=== PATIENT | male | born 1945 | race Caucasian/White ===

== ENCOUNTER 2016-05-30 09:40 | Day surgery (SDC) | payer MEDICARE ==
[2016-05-29 09:10] VITALS: BMI 22.9
[~2016-05-30 09:40] MED LIST: LACTATED RINGERS 1,000 ML IV SCH
[2016-05-30 10:10] VITALS: TEMP 97
[2016-05-30] MEDS ORDERED: LIDOCAINE 1% INJ 10MG/ML (20 ML MDV) ONE (10:52)
[2016-05-30] MEDS ORDERED: PROPOFOL 10 MG/ML 20 ML VIAL IV ONE (10:52)
--- NOTE | 2016-05-30 11:13 | P.GSHP ---
History of Present Illness H&P Date: 05/30/16 Chief Complaint: Colon cancer This is a 71-year-old male who presents today for colonoscopy. Patient history of bowel obstruction related to colon cancer. He has a colostomy. Patient is undergoing colonoscopy to evaluate for colon cancer. He wished to have his colostomy reversed. Past Medical History Past Medical History: Atrial Fibrillation, Heart Failure, Musculoskeletal Disorder Additional Past Medical History / Comment(s): arthritis; History of Any Multi-Drug Resistant Organisms: None Reported Past Surgical History: Bowel Resection, Pacemaker Additional Past Surgical History / Comment(s): benign tumor from bowel; colostomy Past Anesthesia/Blood Transfusion Reactions: No Reported Reaction Type of Cardiac Device: Permanent Pacemaker Device Placement Date:: 2007 Past Psychological History: No Psychological Hx Reported Smoking Status: Current every day smoker Past Alcohol Use History: None Reported Past Drug Use History: None Reported - Past Family History Mother Family Medical History: Cancer Medications and Allergies Home Medications Medication Instructions Recorded Confirmed Type Hydrochlorothiazide [Hydrodiuril] 25 mg PO DAILY 03/08/14 05/29/16 History Lisinopril [Prinivil] 5 mg PO BID 03/08/14 05/29/16 History Digoxin [Lanoxin] 250 mcg PO DAILY 03/18/14 05/29/16 History Baclofen [Lioresal] 10 mg PO TID 05/29/16 05/29/16 History Morphine Sulfate [Morphine Sulfate 15 mg PO DAILY 05/29/16 05/29/16 History ER] oxyCODONE-APAP 10-325MG [Percocet 1 tab PO Q6HR PRN 05/29/16 05/29/16 History 10-325 mg] Allergies Allergy/AdvReac Type Severity Reaction Status Date / Time influenza virus vaccine, Allergy Unknown Verified 05/30/16 10:06 specific [Influenza Virus Vacc,Specific] Surgical - Exam Vital Signs Temp Pulse Resp BP Pulse Ox 97.0 F L 110 H 16 165/82 97 05/30/16 10:09 05/30/16 10:09 05/30/16 10:09 05/30/16 10:09 05/30/16 10:09 - General well developed, no distress - Eyes PERRL - ENT normal pinna - Neck no masses - Respiratory normal expansion - Cardiovascular Rhythm: regular - Abdomen Abdomen: soft, non tender Assessment and Plan Plan: History of colon cancer. We'll perform colonoscopy.
--- NOTE | 2016-05-30 11:46 | P.OP ---
Date of Procedure: 05/30/16 Preoperative Diagnosis: History of colon cancer Postoperative Diagnosis: Rectal polyp Transverse colon polyp Right colon polyp Procedure(s) Performed: Colonoscopy Anesthesia: MAC Surgeon: Marlon Cortez Pathology: other (Rectal polyp, transverse colon polyp, right colon polyp) Condition: stable Disposition: PACU Description of Procedure: Patient's placed on the endoscopy table in the lateral position. He received IV sedation. Digital rectal exam was performed which revealed no abnormalities. The flexible colonoscope was then placed the patient's anus and passed through the rectum. There was a pedunculated polyp seen this was snared. The scope was then withdrawn and then the scope was inserted colostomy. Scope was then advanced to the cecum. The ileocecal valve sutures. Cecum appeared normal. Scope summer back the right colon and there polyp seen this removed the forcep. Scope was then brought back the transverse colon and there was another polyp seen this is removed with snare. The remainder of the transverse colon descending colon appeared normal. Scope was withdrawn for patient.
[2016-05-30 11:56] VITALS: RESP 18
[2016-05-30 12:48] VITALS: BP 135/61; PULSE 91
== END 2016-05-30 13:27 | disposition home or self-care (01) ==
LOC: ORWHC2ENDO 09:40
PROVIDERS: ATTEND Surgery
DX: Z12.11 Encounter for screening for malignant neoplasm of colon (principal); D12.8 Benign neoplasm of rectum; D12.2 Benign neoplasm of ascending colon; D12.3 Benign neoplasm of transverse colon; Z85.038 Personal history of other malignant neoplasm of large intestine; Z93.3 Colostomy status; I50.9 Heart failure, unspecified; I48.91 Unspecified atrial fibrillation; Z79.899 Other long term (current) drug therapy; Z88.7 Allergy status to serum and vaccine; Z95.0 Presence of cardiac pacemaker
CPT/HCPCS: 44394; 45385; 88305; A5061; J2001; J2704; 99153

== ENCOUNTER 2016-06-28 07:40 | Inpatient (IN) | payer MEDICARE ==
[2016-06-13 15:14] VITALS: BMI 22.9
[~2016-06-28 07:40] MED LIST changes: +DEXAMETHASONE SOD PHOSPHATE 10 MG/ML 1 ML VIAL IV ONE; +HEPARIN SODIUM,PORCINE 5,000 UNIT/ML 1 ML VIAL SQ ONE; +HYDROmorphone 1 MG/ML 1 ML SYRINGE IVP PRN; +LACTATED RINGERS 1,000 ML IV ONE; -LACTATED RINGERS 1,000 ML IV SCH; +LIDOCAINE 1% 20 ML VIAL (10MG/ML) FOR IV START INTRADERMA PRN; +MIDAZOLAM 2 MG/2 ML VIAL IV PRN; +NA PHOS,M-B/NA PHOS,DI-BA 133 ML ENEMA RECTAL ONE; +ONDANSETRON 4 MG/2 ML VIAL IVP ONE; +SCOPOLAMINE 1.5MG/72HR PATCH TRANSDERM ONE; +ceFAZolin 2 GM in SODIUM CHLORIDE 0.9% 100 ML IVPB ONE; +metroNIDAZOLE-NS PMX 500 MG in SALINE 1 100ML.BAG IVPB ONE
--- NOTE | 2016-06-28 08:48 | P.GSHP ---
History of Present Illness H&P Date: 06/28/16 Chief Complaint: History of colon cancer This is a 71-year-old male who presents today for reversal of colostomy. Patient has history of colon cancer. At the time of his diagnosis is colon cancer was obstructing. He had a Buddy procedure done at that time. Patient refuses chemotherapy postoperatively. The patient is adamant about having his colostomy reversed. I've gone over the risks and benefits of procedure including inability to reverse the colostomy and issues with clonic anastomosis disruption. - Constitutional Constitutional: Reports as per HPI 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; colostomy,states "pacemaker disconnected but not take out" Past Anesthesia/Blood Transfusion Reactions: No Reported Reaction Type of Cardiac Device: Permanent Pacemaker Device Placement Date:: 2007 Past Psychological History: No Psychological Hx Reported Smoking Status: Current every day smoker Past Alcohol Use History: None Reported Additional Past Alcohol Use History / Comment(s): started smoking at approx 12< 1ppd Past Drug Use History: None Reported - Past Family History Mother Family Medical History: Cancer Father Additional Family Medical History / Comment(s): diverticulitis Medications and Allergies Home Medications Medication Instructions Recorded Confirmed Type Hydrochlorothiazide [Hydrodiuril] 25 mg PO DAILY 03/08/14 06/28/16 History Lisinopril [Prinivil] 5 mg PO BID 03/08/14 06/28/16 History Digoxin [Lanoxin] 250 mcg PO DAILY 03/18/14 06/28/16 History Baclofen [Lioresal] 10 mg PO HS 05/29/16 06/28/16 History Morphine Sulfate [Morphine Sulfate 15 mg PO HS 05/29/16 06/28/16 History ER] oxyCODONE-APAP 10-325MG [Percocet 1 tab PO Q6HR PRN 05/29/16 06/28/16 History 10-325 mg] Ibuprofen [Motrin] 600 mg PO Q8HR PRN 06/13/16 06/28/16 History Melatonin 10 mg PO HS PRN 06/13/16 06/28/16 History diphenhydrAMINE [Benadryl] 50 mg PO HS PRN 06/13/16 06/28/16 History Allergies Allergy/AdvReac Type Severity Reaction Status Date / Time No Known Allergies Allergy Verified 06/28/16 08:21 Surgical - Exam Vital Signs Temp Pulse Resp BP Pulse Ox 97.6 F 83 18 154/73 95 06/28/16 08:26 06/28/16 08:26 06/28/16 08:26 06/28/16 08:26 06/28/16 08:26 - General well developed, no distress - Eyes PERRL - ENT normal pinna - Neck no masses - Respiratory normal expansion - Cardiovascular Rhythm: regular - Abdomen Colostomy in the left lower quadrant Abdomen: soft, non tender Assessment and Plan Plan: History of colon cancer We will perform reversal of colostomy
[2016-06-28 09:31] LABS: Glucose,Whole Blood 112 mg/dL (75-99)
[2016-06-28] MEDS ORDERED: fentaNYL (PF) 50 MCG/ML 2 ML AMP ONE (09:35)
[2016-06-28] MEDS ORDERED: SUCCINYLCHOLINE CHLORIDE 100 MG/5 ML SYR IV ONE (09:35)
[2016-06-28] MEDS ORDERED: GLYCOPYRROLATE 0.2 MG/ML 2 ML VIAL ONE (09:35)
[2016-06-28] MEDS ORDERED: PROPOFOL 10 MG/ML 20 ML VIAL IV ONE (09:35)
[2016-06-28] MEDS ORDERED: NEOSTIGMINE 1 MG/ML 10 ML VIAL ONE (09:35)
[2016-06-28] MEDS ORDERED: ROCURONIUM BROMIDE 10 MG/ML 10 ML VIAL IV ONE (09:35)
[2016-06-28] MEDS ORDERED: HYDROmorphone (PF) 1 MG/ML ONE (09:35)
[2016-06-28] MEDS ORDERED: LIDOCAINE 1% INJ 10MG/ML (20 ML MDV) ONE (09:35)
[2016-06-28 09:43] LABS: Basophils # (A) 0.1 k/uL (0-0.2); Basophils % (A) 0 %; CH 33.5; Eosinophils # (A) 0.3 k/uL (0-0.7); Eosinophils % (A) 3 %; HCT 49.5 % (39.0-53.0); HDW 2.24; HGB 16.6 gm/dL (13.0-17.5); Luc # (Auto) 0.14; Luc % (Auto) 1; Lymphocytes # (A) 1.4 k/uL (1.0-4.8); Lymphocytes % (A) 13 %; MCH 33.2 pg (25.0-35.0); MCHC 33.6 g/dL (31.0-37.0); MCV 98.8 fL (80.0-100.0); Mean Platelet Volume 7.9; Monocytes # (A) 0.6 k/uL (0-1.0); Monocytes % (A) 5 %; Neutrophils # (A) 8.5 k/uL (1.3-7.7); Neutrophils % (A) 78 %; RBC 5.01 m/uL (4.30-5.90); RDW 13.4 % (11.5-15.5); WBC (Perox) 10.71
[2016-06-28 09:54] LABS: Anion Gap 14 mmol/L; Blood Urea Nitrogen 16 mg/dL (9-20); Calcium 9.5 mg/dL (8.4-10.2); Carbon Dioxide 21 mmol/L (22-30); Chloride 104 mmol/L (98-107); Glucose 100 mg/dL (74-99); Non-African American GFR(MDRD) >60 (>60 ml/min/1.73 sqM); Sodium 139 mmol/L (137-145)
[2016-06-28 09:58] LABS: Potassium 4.9 mmol/L (3.5-5.1)
[2016-06-28] MEDS ORDERED: ONDANSETRON 4 MG/2 ML VIAL IVP PRN ×2 (11:28→12:11)
[2016-06-28] MEDS ORDERED: BENZOCAINE/MENTHOL LOZENG 1 EACH LOZENGE MUCOUS MEM PRN (11:28)
--- NOTE | 2016-06-28 11:28 | P.OP ---
Date of Procedure: 06/28/16 Preoperative Diagnosis: History of colon cancer Postoperative Diagnosis: History of colon cancer Procedure(s) Performed: Reversal of colostomy Partial omentectomy Small bowel resection 2 Anesthesia: FERNANDA Surgeon: Marlon Cortez Estimated Blood Loss (ml): 40 Pathology: other (Omentectomy, small bowel resection 2, colostomy) Condition: stable Disposition: PACU Description of Procedure: The patient's placed the operative table in the supine position. He received general anesthesia. He was then placed in dorsal lithotomy position. His abdomen was prepped and draped usual sterile fashion. The patient had a colostomy in the left lower quadrant. The abdomen was entered through midline. There were some adhesions of omentum to the abdominal wall these were lysed with sharp dissection. A portion of the omentum was dissected using the Harmonic scissors and sent to pathology. The colostomy was visualized. At this point the colostomy was transected with the MARCIAL stapler at the fascial level. Following this the rectal stump was seen in the pelvis. There was a loop of small bowel which was adherent to the right pelvic wall. This was freed up with sharp dissection. There appeared to be an inflammatory mass between the 2 loops of bowel. At this point a limited small bowel resection. Was performed. The 2 loops were stuck together by this inflammatory mass. The bowel was transected proximally and distally on the proximal loop and then a osip-oz-groh functional end-to-end staple anastomosis created using MARCIAL and TA stapler. 3-0 GI silk was used for crotch stitch. And then the distal loop was then transected approximately distally with a GI stapler. And then the side-to- side staple anastomosis created using the MARCIAL and TA stapler. The mesentery of the bowel was divided using the LigaSure. The specimens of pathology. At this point the pursestring was placed the proximal colon. The pursestring was fired. The colon was then opened and the 25 mm dilator was placed into the colon. The anvil for the 25 mm EEA was then placed into the bowel and then these Purstring was secured. At this point the welder first class placed the EEA stapler patient's anus. The stapler is placed all the way to the distal staple line. The spike was then driven through the staple line and then the anvil was connected. The EEA stapler was then closed and fired. The stapler was withdrawn. A hydrocele was placed across the proximal colon and then the anastomosis was insufflated with air via a rigid sigmoidoscope. Her is no evidence of any extravasation. The air was insufflated to the point where the air escaped around the anus. At this point the sigmoid scope was withdrawn. The abdomen was irrigated. There is no bleeding seen. The fascia was closed with looped #1 PDS suture. The skin was closed oumou. The colostomy site was then excised using left cautery and sharp dissection. The fascial defect was then closed with 0 Ethibond suture. Skin was closed interrupted 3-0 Monocryl suture. Opteform dressing was applied. Patient sent to recovery in stable condition.
[2016-06-28] MEDS ORDERED: MIDAZOLAM 2 MG/2 ML VIAL IV ONE (11:50)
[2016-06-28] MEDS ORDERED: fentaNYL (PF) 50 MCG/ML 2 ML AMP IV ONE ×2 (11:50→12:15)
[2016-06-28] MEDS ORDERED: BUPIVACAINE (PF) 0.25% 30 ML VIAL EPIDURAL ONE ×2 (12:02→13:00)
[2016-06-28] MEDS ORDERED: diphenhydrAMINE 50 MG/ML 1 ML VIAL IVP PRN (12:11)
[2016-06-28] MEDS ORDERED: NALOXONE 0.4 MG/ML 1 ML VIAL IV PRN (12:11)
[2016-06-28] MEDS ORDERED: SODIUM CHLORIDE 0.9% 1,000 ML IV ONE ×2 (12:36)
[2016-06-28] MEDS: HYDROMORPHONE EPIDURAL PRN (13:22)
[2016-06-28] MEDS: SODIUM CHLORIDE 0.9% EPIDURAL PRN (13:22)
[2016-06-28] MEDS: BUPIVACAINE 0.5% EPIDURAL PRN (13:22)
[2016-06-28] MEDS: METOCLOPRAMIDE 5 MG/ML 2 ML VIAL IVP SCH ×3 (14:49→23:10)
[2016-06-28] MEDS: D5-0.45% NACL WITH KCL 20MEQ/L 1,000 ML IV SCH ×3 (15:44→23:10)
--- NOTE | 2016-06-28 15:50 | P.CONS ---
History of Present Illness - Reason for Consult Consult date: 06/28/16 Medical management Requesting physician: Marlon Cortez - Chief Complaint Status post colostomy reversal - History of Present Illness This is a 71-year-old male with a known history of colon cancer with previous bowel resection and colostomy placement. he had refused chemo and radiation treatment. He also has a history of proximal atrial fibrillation, COPD and he since hypertension. Patient is still a smoker. He is working on [email or web address] back he is down to 5-7 cigarettes a day. Patient underwent surgery for colostomy reversal today. Also during that surgery he had a partial omentectomy and small bowel resection for another mass that was found. Pathology report is pending. We were consulted for medical management. Patient is currently lying in bed. He is complaining of some abdominal pain. He denies any nausea or vomiting. Denies any chest pain or shortness of breath. He was having regular bowel movements and no difficulty with urinating prior to admission. Review of Systems Please refer to HPI otherwise unremarkable 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; colostomy,states "pacemaker disconnected but not take out" Past Anesthesia/Blood Transfusion Reactions: No Reported Reaction Type of Cardiac Device: Permanent Pacemaker Device Placement Date:: 2007 Past Psychological History: No Psychological Hx Reported Smoking Status: Current every day smoker Past Alcohol Use History: None Reported Additional Past Alcohol Use History / Comment(s): started smoking at approx 12< 1ppd Past Drug Use History: None Reported - Past Family History Mother Family Medical History: Cancer Father Additional Family Medical History / Comment(s): diverticulitis Medications and Allergies Home Medications Medication Instructions Recorded Confirmed Type Hydrochlorothiazide [Hydrodiuril] 25 mg PO DAILY 03/08/14 06/28/16 History Lisinopril [Prinivil] 5 mg PO BID 03/08/14 06/28/16 History Baclofen [Lioresal] 10 mg PO HS 05/29/16 06/28/16 History Morphine Sulfate [Morphine Sulfate 15 mg PO HS 05/29/16 06/28/16 History ER] oxyCODONE-APAP 10-325MG [Percocet 1 tab PO Q6HR PRN 05/29/16 06/28/16 History 10-325 mg] Ibuprofen [Motrin] 600 mg PO Q8HR PRN 06/13/16 06/28/16 History Melatonin 10 mg PO HS PRN 06/13/16 06/28/16 History diphenhydrAMINE [Benadryl] 50 mg PO HS PRN 06/13/16 06/28/16 History Digoxin 250 mcg PO DAILY 06/28/16 06/28/16 History Allergies Allergy/AdvReac Type Severity Reaction Status Date / Time No Known Allergies Allergy Verified 06/28/16 08:21 Physical Exam Vitals: Vital Signs Temp Pulse Resp BP Pulse Ox 06/28/16 15:33 97.6 F 76 16 117/70 100 06/28/16 14:20 108 H 18 157/82 93 L 06/28/16 13:48 97 18 137/68 92 L 06/28/16 13:32 76 18 142/71 92 L 06/28/16 13:18 91 18 142/67 92 L 06/28/16 13:03 83 20 147/70 92 L 06/28/16 12:48 109 H 20 147/79 93 L 06/28/16 12:33 106 H 22 138/77 93 L 06/28/16 12:18 88 22 149/76 98 06/28/16 12:03 93 22 152/72 98 06/28/16 11:48 98 20 158/80 98 06/28/16 11:33 97.7 F 93 20 132/57 98 06/28/16 08:26 97.6 F 83 18 154/73 95 Intake and Output 06/28/16 06/28/16 06/28/16 06:59 14:59 22:59 Intake Total 1611.3 Output Total 405 Balance 1206.3 Intake: IV 1611.3 Output: Urine 355 Estimated Blood Loss 50 Head normocephalic Neck supple Lungs coarse breath sounds that cleared with cough Heart regular rate and rhythm S1-S2, no rub or gallop Abdomen is soft tender incision site. Dressing clean dry and intact. Hypoactive bowel sounds. NG tube in place. Extremities no edema Neuro alert and orientated to 3 Results CBC & Chem 7: 06/28/16 09:20 06/28/16 09:20 Labs: Abnormal Lab Results - Last 24 Hours (Table) 06/28/16 06/28/16 06/28/16 Range/Units 09:15 09:20 09:20 WBC 11.0 H (3.8-10.6) k/uL Neutrophils # 8.5 H (1.3-7.7) k/uL Carbon Dioxide 21 L (22-30) mmol/L Glucose 100 H (74-99) mg/dL POC Glucose (mg/dL) 112 H (75-99) mg/dL Assessment and Plan Plan: 1. History of colon cancer with previous bowel resection and colostomy. Patient had refused chemo and radiation treatment. He is now status post colostomy reversal with partial omentectomy and small bowel resection for inflammatory mass noted by surgeon. Patient currently has epidural. Continue with pain control per surgical postop orders. 2. Leukocytosis: Repeat CBC in a.m. Continue to monitor. 3. Essential hypertension: Resume lisinopril and hydrochlorothiazide 4. Previous history of one episode of atrial fibrillation. Patient has never had anticoagulation. Continue with digoxin 5. Nicotine dependence: Discussed smoking cessation. Counseled patient for greater than 3 minutes. Start nicotine patch. 6. History of chronic back pain: takes morphine and Percocet at home. DVT prophylaxis subcu heparin Check CBC and CMP in a.m. We will continue to follow along with you. Thank you for this consultation. Time with Patient: Greater than 30 (Greater than 50% of the total time spent in counseling and coordination of care.I performed an examination of the patient and discussed their management with the physician Credit Collections Rep. I have reviewed the Physician Credit Collections Rep's notes and agree with the documented findings and plan of care)
[2016-06-28] MEDS: NICOTINE 7MG/24HR PATCH TRANSDERM SCH (16:22)
[2016-06-28] MEDS: HEPARIN SODIUM,PORCINE 5,000 UNIT/ML 1 ML VIAL SQ SCH ×2 (16:22→23:10)
[2016-06-28] MEDS: LISINOPRIL 5 MG TAB PO SCH (19:49)
[2016-06-29] MEDS: METOCLOPRAMIDE 5 MG/ML 2 ML VIAL IVP SCH ×3 (05:16→20:07)
[2016-06-29] MEDS: DIGOXIN 250 MCG TAB PO SCH (07:23)
[2016-06-29] MEDS: LISINOPRIL 5 MG TAB PO SCH (07:23)
[2016-06-29] MEDS: NICOTINE 7MG/24HR PATCH TRANSDERM SCH (07:23)
[2016-06-29] MEDS: HEPARIN SODIUM,PORCINE 5,000 UNIT/ML 1 ML VIAL SQ SCH ×3 (07:23→23:41)
[2016-06-29 07:53] LABS: Basophils # (A) 0.1 k/uL (0-0.2); Basophils % (A) 0 %; CH 32.9; CHCM 32.1; Eosinophils % (A) 0 %; HCT 47.6 % (39.0-53.0); HDW 2.19; HGB 15.7 gm/dL (13.0-17.5); Luc # (Auto) 0.16; Luc % (Auto) 1; Lymphocytes # (A) 0.8 k/uL (1.0-4.8); Lymphocytes % (A) 6 %; MCH 33.9 pg (25.0-35.0); MCHC 32.9 g/dL (31.0-37.0); MCV 102.9 fL (80.0-100.0); Macrocytosis Slight; Mean Platelet Volume 8.2; Monocytes # (A) 0.7 k/uL (0-1.0); Monocytes % (A) 5 %; Neutrophils # (A) 11.8 k/uL (1.3-7.7); Neutrophils % (A) 87 %; RBC 4.63 m/uL (4.30-5.90); RDW 13.3 % (11.5-15.5); WBC 13.5 k/uL (3.8-10.6); WBC (Perox) 13.64
[2016-06-29 08:12] LABS: ALT 18 U/L (21-72); AST 30 U/L (17-59); Alkaline Phosphatase 70 U/L (38-126); Anion Gap 10 mmol/L; Blood Urea Nitrogen 21 mg/dL (9-20); Calcium 8.4 mg/dL (8.4-10.2); Carbon Dioxide 21 mmol/L (22-30); Chloride 107 mmol/L (98-107); Glucose 102 mg/dL (74-99); Non-African American GFR(MDRD) >60 (>60 ml/min/1.73 sqM); Potassium 5.4 mmol/L (3.5-5.1); Sodium 138 mmol/L (137-145); Total Bilirubin 1.2 mg/dL (0.2-1.3); Total Protein 6.3 g/dL (6.3-8.2)
[2016-06-29] MEDS ORDERED: HYDROCHLOROTHIAZIDE 25 MG TAB PO SCH (09:00)
--- NOTE | 2016-06-29 09:50 | P.PN ---
Progress Note - Text 06/30 71-year-old male status post colostomy reversal with epidural solution running at 8 mL an hour. VAS of 2, no motor or sensory deficit, patient has complains of back pain and takes a fair amount of narcotics at home. Plan to continue epidural infusion.
[2016-06-29] MEDS ORDERED: IPRATROPIUM-ALBUTEROL 3 ML NEB INHALATION PRN (10:07)
[2016-06-29] MEDS: IPRATROPIUM-ALBUTEROL 3 ML NEB INHALATION SCH ×3 (12:39→21:00)
--- NOTE | 2016-06-29 12:49 | CDI ---
In responding to this query, please exercise your independent professional judgment. The [facility] Coding Staff and Clinical Documentation Specialists appreciate your assistance in clarifying documentation, maintaining compliance with coding guidelines, accurately documenting patients condition and capturing severity of illness. The fact that a question is asked does not imply that any particular answer is desired or expected. Communication forms are a method of clarifying documentation and are not made part of the Legal Health Record. Thank you in advance for your clarification. Last Revision, July 2015 Angel Luis Kaufman [address] [facility] [address] Documentation Clarification Form Date: 06/29/2016 12:07:00 PM From: Marcella Diana Admit Date: 06/28/2016 7:49:00 AM Patient Name: Kalyan Horn Visit Number: [id number] Discharge Date: Dr. Marlon Cortez Documentation in the Operative Report included Partial Omentectomy History/Risk factors: Colon cancer, Heart failure, Pre-Operative Diagnosis: Colon Cancer Postoperative Diagnosis: Same Clinical Indicators: The patient had a colostomy in the left lower quadrant. There were some adhesions of omentum of the abdominal wall these were lysed with sharp dissection. Treatment: Reversal of Colostomy, Partial Omentectomy, Small bowel resection x2 In order to capture the severity of condition, please further specify the following for the Partial Omentectomy: Anatomical site of the body system on which the procedure is performed Greater Omentum Lesser Omentum Other (please specify) Please document as an addendum to your operative report in order to capture severity of illness and risk of mortality. FYI: Press F11 to launch patient chart Place X here if this finding has no clinical significance, is not applicable or if you are not able to provide any additional documentation. HEMA
[2016-06-29 13:55] LABS: Glucose,Whole Blood 126 mg/dL (75-99)
[2016-06-29] MEDS ORDERED: METOPROLOL TARTRATE 25 MG TAB PO SCH ×2 (14:15→18:00)
[2016-06-29] MEDS: SODIUM CHLORIDE 0.9% EPIDURAL PRN (14:38)
[2016-06-29] MEDS: BUPIVACAINE 0.5% EPIDURAL PRN (14:38)
[2016-06-29] MEDS: HYDROMORPHONE EPIDURAL PRN (14:38)
--- NOTE | 2016-06-29 14:40 | P.PN ---
Subjective Principal diagnosis: Colon cancer Patient is a 71-year-old white male with history of obstructing colon cancer status post Buddy procedure refusing chemotherapy post procedure. Patient presented for elective colostomy reversal. Patient is evaluated from the surgical floor where he is postop day #1 for reversal of colostomy; partial omentectomy, and small bowel resection 2. Patient is sitting up in the chair. Patient complains of primarily lower back pain currently rated 8 out of 10. Patient reports productive cough. Denies nausea or vomiting. Denies flatus or bowel movement. T-max the last 24 hours 100.3. WBC 13.5. Potassium 5.4. Urine output adequate. Nasogastric tube to low intermittent suction for small bowel decompression. Objective - Vital Signs Vital signs: Vital Signs Temp 97.7 F 06/29/16 07:51 Pulse 79 06/29/16 07:51 Resp 17 06/29/16 07:51 BP 153/66 06/29/16 07:51 Pulse Ox 98 06/29/16 07:51 Intake & Output 06/28/16 06/29/16 06/29/16 18:59 06:59 18:59 Intake Total 1611.3 375 Output Total 405 300 Balance 1206.3 75 Weight 72.57 kg Intake: IV 1611.3 375 D5-0.45% NaCl with KCl 375 20Meq/l 1,000 ml @ 125 mls/hr IV .Q8H [facility] Rx#: [id number] Oral 0 Output: Urine 355 300 Estimated Blood Loss 50 Other: Voiding Method Indwelling Catheter Indwelling Catheter Indwelling Catheter - Exam GENERAL: Pt awake and alert, sitting up in a chair, appears in mild distress. ENT: Moist mucous membranes. LUNGS: Breath sounds diminished to auscultation bilaterally. Productive cough with yellow sputum. HEART: Heart S1, S2, no S3 or S4. Regular rate and rhythm. No murmurs, rubs or gallops. ABDOMEN: Soft, mild incisional tenderness, nondistended, hypoactive bowel sounds. No peritoneal signs. Abdominal dressing intact with old sanguinous drainage. NEUROLOGICAL: Pt oriented x 3. No focal deficits. PSYCH: Anxious. SKIN: Warm, diaphoretic. - Labs CBC & Chem 7: 06/29/16 07:10 06/29/16 07:10 Labs: Abnormal Lab Results - Last 24 Hours (Table) 06/29/16 06/29/16 06/29/16 Range/Units 07:10 07:10 13:50 WBC 13.5 H (3.8-10.6) k/uL MCV 102.9 H (80.0-100.0) fL Neutrophils # 11.8 H (1.3-7.7) k/uL Lymphocytes # 0.8 L (1.0-4.8) k/uL Potassium 5.4 H (3.5-5.1) mmol/L Carbon Dioxide 21 L (22-30) mmol/L BUN 21 H (9-20) mg/dL Glucose 102 H (74-99) mg/dL POC Glucose (mg/dL) 126 H (75-99) mg/dL ALT 18 L (21-72) U/L Assessment and Plan Plan: Impression: 1. History of colon cancer with Buddy procedure status post reversal of colostomy; partial omentectomy; and small bowel resection 2. 2. Chronic back pain. 3. Leukocytosis, suspect reactive and possible secondary to atelectasis. 4. Hyperkalemia. Potassium 5.4. Plan: 1. Keep patient nothing by mouth. Continue nasogastric tube to low intermittent suction for bowel decompression. Continue supportive treatment and pain management. Continue current medications. Remove potassium from IV fluids. Encouraged use of incentive spirometry. Increase activity. Inserted followed medical team. Repeat CBC and BMP in a.m. The above impression and plan have been discussed and directed by Dr. Cortez. Zechariah LOCK acting as scribe for Dr. Cortez.
--- NOTE | 2016-06-29 14:42 | P.PN ---
Subjective Patient is postop day #1 status post colostomy reversal, omentectomy, small bowel resection. Currently remains nothing by mouth with NG tube in place. Denies any bowel movement or passing gas. Patient did have a low-grade temp of 100.3. White count is 13.5. Patient also had some hyperkalemia with a potassium of 5.4. Potassium was removed from the IV fluids per surgery. Patient has epidural for pain control. Still complaining of some pain more in the back. Denies any chest pain, shortness of breath, any nausea. Patient has been up and ambulating in hallway Patient was reevaluated this afternoon with Dr. Pat. A team was called. Patient was diaphoretic with a heart rate in the 140s. EKG had shown sinus tachycardia with a heart rate of 118. Patient was started on metoprolol. Audiology was consulted. Patient was transferred to the sixth floor. Due to the temporal 100.3 and elevated white count of 13.5 and tachycardia. Check lactic acid level, blood culture, urine culture and chest x-ray. We'll start patient on Levaquin and Flagyl. Objective - Vital Signs Vital signs: Vital Signs Temp 97.7 F 06/29/16 07:51 Pulse 79 06/29/16 07:51 Resp 17 06/29/16 07:51 BP 153/66 06/29/16 07:51 Pulse Ox 98 06/29/16 07:51 Intake & Output 06/28/16 06/29/16 06/29/16 18:59 06:59 18:59 Intake Total 1611.3 375 Output Total 405 300 Balance 1206.3 75 Weight 72.57 kg Intake: IV 1611.3 375 D5-0.45% NaCl with KCl 375 20Meq/l 1,000 ml @ 125 mls/hr IV .Q8H [facility] Rx#: [id number] Oral 0 Output: Urine 355 300 Estimated Blood Loss 50 Other: Voiding Method Indwelling Catheter Indwelling Catheter Indwelling Catheter - Exam Head normocephalic Neck supple Lungs clear to auscultation bilaterally no wheezing or crackles Heart regular rate and rhythm S1-S2, no rub or gallop Abdomen is soft nontender nondistended with active bowel sounds. NG tube in place Extremities no edema Neuro alert and orientated to 3 - Labs CBC & Chem 7: 06/29/16 07:10 06/29/16 07:10 Labs: Abnormal Lab Results - Last 24 Hours (Table) 06/29/16 06/29/16 Range/Units 07:10 07:10 WBC 13.5 H (3.8-10.6) k/uL MCV 102.9 H (80.0-100.0) fL Neutrophils # 11.8 H (1.3-7.7) k/uL Lymphocytes # 0.8 L (1.0-4.8) k/uL Potassium 5.4 H (3.5-5.1) mmol/L Carbon Dioxide 21 L (22-30) mmol/L BUN 21 H (9-20) mg/dL Glucose 102 H (74-99) mg/dL ALT 18 L (21-72) U/L Assessment and Plan Plan: 1. History of colon cancer with previous bowel resection and colostomy. Patient had refused chemo and radiation treatment. He is now status post colostomy reversal with partial omentectomy and small bowel resection for inflammatory mass noted by surgeon. Patient currently has epidural. Continue with pain control per surgical postop orders. 2. Leukocytosis, low-grade temp of 100.3 and sinus tachycardia. Check lactic acid level, blood culture, urine culture and chest x-ray. Start patient empirically on Levaquin and Flagyl for possible infection 3. Essential hypertension: Norvasc 5 mg by mouth daily added since we are discontinuing the lisinopril and hydrochlorothiazide. 4. Previous history of one episode of atrial fibrillation. Patient has never had anticoagulation. Continue with digoxin 5. Nicotine dependence: Discussed smoking cessation. Counseled patient for greater than 3 minutes. Start nicotine patch. 6. History of chronic back pain: takes morphine and Percocet at home. 7. Hyperkalemia: Potassium 5.4. Potassium and IV fluids discontinued by surgical service. At this time we'll hold patient's lisinopril. Repeat potassium level at 6:00 p.m. 8. Acute kidney injury: We'll hold hydrochlorothiazide. Creatinine 1.06. BUN 21. Continue with IV fluid hydration. Repeat labs in a.m. 9. Sinus tachycardia with diaphoresis: heart rate up to 140. Patient required transfer to 6 floor. Consult cardiology. Patient will be started on metoprolol tartrate 25 mg daily. DVT prophylaxis subcu heparin
--- NOTE | 2016-06-29 15:09 | XR ---
EXAMINATION TYPE: XR chest 2V DATE OF EXAM: 06/29/2016 3:04 PM COMPARISON: NONE HISTORY: Fever and elevated white blood cell count status post surgery TECHNIQUE: Frontal and lateral views of the chest are obtained. FINDINGS: Patchy basilar density is present. Pneumoperitoneum thought likely to be postop. Patient i s rotated. NG tube is present within the stomach. Pacemaker shows leads in the right atrium and ventr icle, coronary sinus. No evident pneumothorax. Some prominence of interstitium, lung volumes are low. Heart size may be accentuated by rotation. IMPRESSION: Postoperative pneumoperitoneum. Probable basilar atelectasis, follow-up as indicated. Ex piratory rotated exam. There may be a component of volume overload, pulmonary venous hypertension and interstitial edema.
[2016-06-29] MEDS: DEXTROSE 5%-0.45% NACL 1,000 ML IV SCH ×2 (16:37→21:56)
[2016-06-29] MEDS: LEVOFLOXACIN 500MG-D5W PMX 500 MG in DEXTROSE/WATER 1 100ML.BAG IVPB SCH (18:11)
--- NOTE | 2016-06-29 18:11 | XR ---
EXAMINATION TYPE: XR chest 1V DATE OF EXAM: 06/29/2016 6:00 PM COMPARISON: 06/29/2016 HISTORY: Central line placement TECHNIQUE: Single frontal view of the chest is obtained. FINDINGS: Heart is enlarged. There is a nasogastric tube. There is a left axillary pacemaker with th e lead tips in the right ventricle. There is a left side central venous catheter that has its tip ext ending into the neck. There is no sign of pneumothorax. There is poor inspiration. There is interposi tion of the hepatic flexure of the colon noted. IMPRESSION: Mild pulmonary congestion. No pneumothorax. Left-sided central venous catheter appears m alpositioned and the tip is extending into the neck.
[2016-06-29 18:42] LABS: Amorphous Sediment,Urine Rare /hpf; Appearance,Urine Clear (Clear); Bilirubin,Urine Negative (Negative); Glucose,Urine (UA) Negative (Negative); Ketones,Urine Negative (Negative); Leukocyte Esterase,Urine Moderate (Negative); Mucus,Urine Rare /hpf; Nitrite,Urine Negative (Negative); PH, Urine 5.5 (5.0-8.0); Particle Count 2807; Protein,Urine 1+ (Negative); RBC,Urine 52 /hpf (0-5); Specific Gravity,Urine 1.019 (1.001-1.035); Squamous Epithelial Cell,Urine <1 /hpf (0-4); UA Billing (MACRO vs. MICRO) MICRO; Urobilinogen,Urine <2.0 mg/dL (<2.0); WBC,Urine 23 /hpf (0-5)
--- NOTE | 2016-06-29 18:42 | CONS ---
DATE OF CONSULTATION: This is a 71-year-old male who underwent reversal of colostomy with Buddy procedure today. Cardiology consultation was requested because of an episode of dyspnea and diaphoresis earlier while on the surgical floor. Patient has a known history of colon CA and underwent colostomy and in August. He has declined chemotherapy and radiation therapy. He underwent cardiac catheterization in 2006 and at that time there was no evidence of obstructive disease. Patient has a prior history of ICD but he declined generator change. He has a history of hypertension, and chronic tobacco use. He denies any change in his overall status. He denies any chest pain or palpitation. He denies PND, orthopnea, or significant peripheral edema. His coronary risk factors are remarkable for smoking, hyperlipidemia and hypertension. His left ventricular systolic function in the past has been stable. His medications at home included: 1. Lisinopril 5 mg twice a day. 2. Hydrochlorothiazide 0.25 mg daily. 3. Digoxin. REVIEW OF SYSTEMS: RESPIRATORY SYSTEM: Has dyspnea on exertion, history of chronic tobacco use. GI system: He has colon CA and has the colostomy. system: No dysuria or hematuria. Nervous system: No history of stroke or seizure. PHYSICAL EXAMINATION: He is a 71-year-old male, alert, in no apparent distress. Blood pressure 132/70 with a heart rate in the low 100s. Afebrile. HEENT: Normocephalic. Eyes: Sclerae anicteric. NECK: No bruit. LUNGS: With mild decreased in breath sounds. No wheezes. HEART: Regular rate rhythm. S1, S2, no S3, with a systolic murmur heard at the base. No diastolic murmur. No rub. With holosystolic murmur at the apex. ABDOMEN: Soft and nontender. Hypoactive bowel sounds. EXTREMITIES: No edema. EKG revealed a sinus mechanism with sinus tach, rate of 118 and left bundle branch block. His BUN and creatinine 21 and 1.06. Potassium 5.4. Lactic acid was 2.5. Hemoglobin of 15.7. IMPRESSION: 1. Status post reversal of colostomy. 2. Episode of diaphoresis and dyspnea, stabilizing at this time. 3. History of cardiomyopathy. 4. History of ICD with no generator change. Patient declined. 5. Mild coronary artery disease by cardiac catheterization in 2006. 6. Chronic tobacco use. 7. Nonischemic cardiomyopathy. 8. Hypertension. 9. Hyperlipidemia. RECOMMENDATIONS: From the cardiac standpoint, I will increase the dose of his beta estephania. Continue the rest of his medical regimen. We will repeat his echocardiogram. Depending on his progress, further recommendation will be made.
--- NOTE | 2016-06-29 18:56 | PCN ---
DATE OF PROCEDURE: TRIPLE LUMEN CATHETER PLACEMENT PROCEDURE: Triple-lumen catheter insertion. INDICATION FOR THE PROCEDURE: No IV access. Indication: Hemodynamic monitoring/Intravenous access. A time-out was completed verifying correct patient, procedure, site, positioning, and implant(s) or special equipment if applicable. The patient was placed in a dependent position appropriate for triple lumen catheter placement based on the vein to be cannulated. The patient's right shoulder was prepped and draped in sterile fashion. 1% Lidocaine was used to anesthetize the surrounding skin area. A triple lumen 9F Cordis catheter was introduced into the right subclavian vein using Seldinger technique. The catheter was threaded smoothly over the guide wire and appropriate blood return was obtained. Each lumen of the catheter was evacuated of air and flushed with sterile saline. The catheter was then sutured in place to the skin and a sterile dressing applied. Perfusion to the extremity distal to the point of catheter insertion was checked and found to be adequate. No bedside complications or bleeding. No pneumothorax.
[2016-06-29] MEDS: HYDROmorphone 1 MG/ML 1 ML SYRINGE IVP PRN ×2 (20:07→22:34)
[2016-06-29] MEDS: metroNIDAZOLE-NS PMX 500 MG in SALINE 1 100ML.BAG IVPB SCH (21:56)
[2016-06-29] MEDS: METOPROLOL TARTRATE 25 MG TAB PO SCH ×2 (21:59→22:06)
[2016-06-30] MEDS: metroNIDAZOLE-NS PMX 500 MG in SALINE 1 100ML.BAG IVPB SCH ×4 (00:31→23:34)
[2016-06-30] MEDS: HYDROmorphone 1 MG/ML 1 ML SYRINGE IVP PRN ×5 (01:01→23:34)
[2016-06-30] MEDS: METOCLOPRAMIDE 5 MG/ML 2 ML VIAL IVP SCH ×5 (01:01→23:34)
[2016-06-30] MEDS: DEXTROSE 5%-0.45% NACL 1,000 ML IV SCH ×4 (05:24→23:45)
[2016-06-30] MEDS: HEPARIN SODIUM,PORCINE 5,000 UNIT/ML 1 ML VIAL SQ SCH ×3 (07:47→23:35)
[2016-06-30] MEDS: amLODIPine 5 MG TAB PO SCH ×2 (07:53→07:56)
[2016-06-30] MEDS: DIGOXIN 250 MCG TAB PO SCH (07:53)
[2016-06-30] MEDS: METOPROLOL TARTRATE 25 MG TAB PO SCH ×3 (07:53→23:34)
[2016-06-30] MEDS: NICOTINE 7MG/24HR PATCH TRANSDERM SCH (07:53)
[2016-06-30 09:00] LABS: Basophils % (A) 0 %; CH 33.1; CHCM 33.3; Eosinophils # (A) 0.2 k/uL (0-0.7); Eosinophils % (A) 1 %; HCT 42.3 % (39.0-53.0); HDW 2.28; HGB 13.9 gm/dL (13.0-17.5); Luc # (Auto) 0.14; Luc % (Auto) 1; Lymphocytes # (A) 0.7 k/uL (1.0-4.8); Lymphocytes % (A) 5 %; MCH 32.8 pg (25.0-35.0); MCHC 32.8 g/dL (31.0-37.0); MCV 99.9 fL (80.0-100.0); Mean Platelet Volume 7.6; Monocytes # (A) 0.7 k/uL (0-1.0); Monocytes % (A) 5 %; Neutrophils # (A) 12.4 k/uL (1.3-7.7); Neutrophils % (A) 88 %; RBC 4.23 m/uL (4.30-5.90); RDW 13.4 % (11.5-15.5); WBC 14.1 k/uL (3.8-10.6); WBC (Perox) 13.73
--- NOTE | 2016-06-30 09:00 | P.PN ---
Subjective Principal diagnosis: colostomy reversal Patient doing well today. Denies abdominal pain. Complaining of mild back discomfort. No flatus or bowel movement thus far. He is afebrile. No labs this morning. Objective - Vital Signs Vital signs: Vital Signs Temp 97.6 F 06/30/16 07:50 Pulse 98 06/30/16 07:50 Resp 17 06/30/16 07:50 BP 115/75 06/30/16 07:50 Pulse Ox 95 06/30/16 07:50 Intake & Output 06/29/16 06/30/16 06/30/16 18:59 06:59 18:59 Intake Total 13.067 24.9 Output Total 1250 Balance 13.067 -1225.1 Weight 75.5 kg Intake: Intake, IV Titration 13.067 24.9 Amount Bupivacaine (Pf) 0.5% 31. 13.067 24.9 3 ml HYDROmorphone 7.5 mg In Sodium Chloride 0.9% 215 ml @ Per Protocol EPIDURAL .Q0M PRN Rx#: [id number] Output: Urine 1250 Uretheral (Pollack) 400 Other: Voiding Method Indwelling Catheter Indwelling Catheter - Exam Abdomen: Soft, nondistended, dressings intact, minimal tenderness - Labs CBC & Chem 7: 06/29/16 07:10 06/29/16 23:55 Labs: Abnormal Lab Results - Last 24 Hours (Table) 06/29/16 06/29/16 06/29/16 Range/Units 13:50 15:53 18:04 POC Glucose (mg/dL) 126 H (75-99) mg/dL Plasma Lactic Acid Sonu 2.5 H* (0.7-2.0) mmol/L Urine Protein 1+ H (Negative) Urine Blood Moderate H (Negative) Ur Leukocyte Esterase Moderate H (Negative) Urine RBC 52 H (0-5) /hpf Urine WBC 23 H (0-5) /hpf Amorphous Sediment Rare H (None) /hpf Hyaline Casts 15 H (0-2) /lpf Urine Mucus Rare H (None) /hpf Microbiology - Last 24 Hours (Table) 06/29/16 18:04 Urine Culture - Preliminary Urine,Catheterized Assessment and Plan (1) Colon cancer Narrative/Plan: Will begin a clear liquid diet. Check basic labs. Increase activity. Continue epidural for now. Status: Acute
[2016-06-30] MEDS: IPRATROPIUM-ALBUTEROL 3 ML NEB INHALATION SCH ×4 (09:21→20:40)
[2016-06-30 09:27] LABS: ALT 27 U/L (21-72); AST 45 U/L (17-59); Alkaline Phosphatase 63 U/L (38-126); Anion Gap 8 mmol/L; Blood Urea Nitrogen 23 mg/dL (9-20); Carbon Dioxide 24 mmol/L (22-30); Chloride 109 mmol/L (98-107); Glucose 123 mg/dL (74-99); Non-African American GFR(MDRD) >60 (>60 ml/min/1.73 sqM); Sodium 141 mmol/L (137-145); Total Bilirubin 1.4 mg/dL (0.2-1.3); Total Protein 6.4 g/dL (6.3-8.2)
[2016-06-30 09:32] LABS: Potassium 4.7 mmol/L (3.5-5.1)
--- NOTE | 2016-06-30 09:38 | P.PN ---
Subjective 71-year-old gentleman being seen on rounds morning currently sitting up in bed talkative appears in no acute distress. Patient is stating that the pain medication has been effective for pain control. Patient states he has not passed any gas. Has not belched. Currently chief complaint is lower back discomfort. Labs were reviewed. The lactic acid is down to 1.2. The white count 14.1 hemoglobin 13.9. Patient is postop 28 of June reversal of colostomy and partial omentectomy with small bowel resection 2 in a patient who has a history of colon cancer. Currently patient on a clear liquid diet which has just been initiated by surgical service. No reports the nausea vomit Bedside echocardiogram being taken Objective - Vital Signs Vital signs: Vital Signs Temp 97.6 F 06/30/16 07:50 Pulse 98 06/30/16 08:00 Resp 17 06/30/16 08:00 BP 115/75 06/30/16 07:50 Pulse Ox 95 06/30/16 07:50 Intake & Output 06/29/16 06/30/16 06/30/16 18:59 06:59 18:59 Intake Total 13.067 24.9 Output Total 1250 Balance 13.067 -1225.1 Weight 75.5 kg Intake: Intake, IV Titration 13.067 24.9 Amount Bupivacaine (Pf) 0.5% 31. 13.067 24.9 3 ml HYDROmorphone 7.5 mg In Sodium Chloride 0.9% 215 ml @ Per Protocol EPIDURAL .Q0M PRN Rx#: [id number] Output: Urine 1250 Uretheral (Pollack) 400 Other: Voiding Method Indwelling Catheter Indwelling Catheter Indwelling Catheter - Exam Physical exam 71-year-old male sitting up in bed appears in no acute distress. Patient states the bed is uncomfortable" Lungs diminished at the bases otherwise adequate air movement currently on room air sats are 95% no cough noted Heart S1-S2 audible and regular monitor the paced was sinus rhythm denying chest pain Abdomen surgical dressing site dry. A few hypoactive bowel tones not distended surgical tenderness indwelling Pollack catheter in place no reports of nausea vomiting Extremities Venodyne's on to the bilateral lower extremities no calf tenderness no edema - Labs CBC & Chem 7: 06/30/16 08:35 06/29/16 23:55 Labs: Abnormal Lab Results - Last 24 Hours (Table) 06/29/16 06/29/16 06/29/16 Range/Units 13:50 15:53 18:04 WBC (3.8-10.6) k/uL RBC (4.30-5.90) m/uL Neutrophils # (1.3-7.7) k/uL Lymphocytes # (1.0-4.8) k/uL POC Glucose (mg/dL) 126 H (75-99) mg/dL Plasma Lactic Acid Sonu 2.5 H* (0.7-2.0) mmol/L Urine Protein 1+ H (Negative) Urine Blood Moderate H (Negative) Ur Leukocyte Esterase Moderate H (Negative) Urine RBC 52 H (0-5) /hpf Urine WBC 23 H (0-5) /hpf Amorphous Sediment Rare H (None) /hpf Hyaline Casts 15 H (0-2) /lpf Urine Mucus Rare H (None) /hpf 06/30/16 Range/Units 08:35 WBC 14.1 H (3.8-10.6) k/uL RBC 4.23 L (4.30-5.90) m/uL Neutrophils # 12.4 H (1.3-7.7) k/uL Lymphocytes # 0.7 L (1.0-4.8) k/uL POC Glucose (mg/dL) (75-99) mg/dL Plasma Lactic Acid Sonu (0.7-2.0) mmol/L Urine Protein (Negative) Urine Blood (Negative) Ur Leukocyte Esterase (Negative) Urine RBC (0-5) /hpf Urine WBC (0-5) /hpf Amorphous Sediment (None) /hpf Hyaline Casts (0-2) /lpf Urine Mucus (None) /hpf Microbiology - Last 24 Hours (Table) 06/29/16 18:04 Urine Culture - Preliminary Urine,Catheterized Assessment and Plan Plan: Impression Postop June 28 Reversal of colostomy Partial omentectomy small bowel resection 2 for colon cancer Hypertension essential controlled Alone isolated episode of atrial fibrillation maintaining sinus Nicotine dependency chronic Chronic lower back pain on opiates at home Hyperkalemic improving potassium down to 4.7 Postop episode leukocytosis resolving Acute kidney injury improving creatinine down to 0.8 Sinus tachycardic symptomatic diaphoresis heart rate up to 140 postop necessitating transfer to a monitored bed on June 29 heart rate down to 90s Plan Continue postop surgical care per surgical service recommendations Increase activity Diet to be advanced by surgical service Pain control Follow-up on echocardiogram Respiratory treatments as ordered IV Levaquin and Flagyl as ordered Monitor blood pressure heart rate address as indicated DVT and GI prophylaxis Repeat labs in the morning Continue to reinforce smoking cessation information patient's been advised to quit smoking The above dictated assessment and findings were discussed with Dr. Bi Adler and the plan of care have been dictated as directed. Hannah Huddleston nurse practitioner acting as a scribe for dr gimenez
--- NOTE | 2016-06-30 09:50 | P.PN ---
Progress Note - Text Date: 06/30/2016 Time: The patient is status post, colostomy reversal, postoperative day number 2 The patient has no complaints of nausea vomiting or headache. The patient does not complain of any lower extremity numbness or weakness. The epidural is running at 10 mL per hour. The epidural will be maintained and adjusted as needed.
--- NOTE | 2016-06-30 10:09 | P.PN ---
Progress Note - Text Patient Seen and examined on 06/30/2016 Full note dictated by nurse practitioner Hannah Huddleston working with me today
--- NOTE | 2016-06-30 11:31 | P.CONS ---
History of Present Illness - Reason for Consult Consult date: 06/29/16 - Chief Complaint fever and abdominal pain - History of Present Illness 71-year-old male presents to hospital for reversal of his colostomy. This pleasant gentleman had a history of significant abdominal of that related to his colon cancer with obstruction which required a diverting colostomy. He has been doing well over time and desired to reversal. Preoperative endoscopy was performed with no evidence of any malignancy. The patient hasnow been taken to the operating room where he has had the reversal of his colostomy. He was doing well but is now had some mild leukocytosis as well as a fever and with that the infectious diseases consultation was requested. This very pleasant gentleman relates that he is feeling somewhat better today. NG tube is still in place. Looks forward to being able to eat in the next few days. He has a epidural in place and relates that he is not having excellent control of his pain. Anesthesiology has been requested for further evaluation. He also does not have current IV access and anesthesias also requested for IV access. Other than his pain he has no other acute complaints. He is passing no flatus at this point in time. NG is in place and he does not have nausea. Review of Systems HEENT:Denies headache or acute visual change. Denies sinus or mouth discomforts. Denies neck stiffness or pain. Denies significant oral cavity pain. Denies difficulty on swallowing. Lungs: Denies significant shortness of breath, cough, sputum production, or hemoptysis. Cardiovascular: Denies significant shortness of breath, chest pain, chest wall pain, orthopnea, dyspnea on exertion, syncope Gastrointestinal:recent surgery, see HPI, NG tube remains in place. Musculoskeletal: denies significant myalgias or arthralgias. No new joint swelling. Denies new back pain. Skin: Denies new rash or lesions. No new ulcers or wounds are related.. Neuro: Denies headache or visual change. Denies any new onset weakness or difficulty with ambulation. Denies falls or seizures. Psychiatric:Denies anxiety or depression. Endocrine: Denies significant fatigue, denies significant weight loss or weight gain. 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 Retired warehouse laborer. Remote history of tobacco use and alcohol use no recreational drug use. No experience. No international travel. No animal exposures Smoking Status: Current every day smoker Past Alcohol Use History: None Reported Additional Past Alcohol Use History / Comment(s): started smoking at approx 12< 1ppd Past Drug Use History: None Reported - Past Family History Mother Family Medical History: Cancer Father Additional Family Medical History / Comment(s): diverticulitis Medications and Allergies Home Medications and Allergies Comment(s): Current Medications Albuterol/Ipratropium (Duoneb 0.5 Mg-3 Mg/3 Ml Soln) 3 ml INHALATION RT-QID [facility] Last Admin: 06/30/16 09:21 Dose: Not Given Albuterol/Ipratropium (Duoneb 0.5 Mg-3 Mg/3 Ml Soln) 3 ml INHALATION RT-QID PRN PRN Reason: Shortness Of Breath Or Wheezing Amlodipine Besylate (Norvasc) 5 mg PO DAILY [facility] Last Admin: 06/30/16 07:56 Dose: Not Given Benzocaine/Menthol (Cepacol Lozenge) 1 each MUCOUS MEM Q1HR PRN PRN Reason: Sore Throat Digoxin (Lanoxin) 250 mcg PO DAILY [facility] Last Admin: 06/30/16 07:53 Dose: 250 mcg Diphenhydramine HCl (Benadryl) 25 mg IVP Q6HR PRN PRN Reason: Itching Heparin Sodium (Porcine) (Heparin) 5,000 unit SQ Q8HR [facility] Last Admin: 06/30/16 07:47 Dose: Not Given Hydromorphone HCl (Dilaudid) 0.5 mg IVP Q2HR PRN PRN Reason: Pain Last Admin: 06/30/16 01:01 Dose: 0.5 mg Bupivacaine HCl 31.3 ml/Hydromorphone HCl 7.5 mg/Sodium Chloride 250.05 mls @ 0 mls/hr EPIDURAL .Q0M PRN; Protocol; Per Protocol PRN Reason: Pain Control Last Infusion: 06/29/16 19:02 Dose: 10 mls/hr Dextrose/Sodium Chloride (Dextrose 5%-1/2ns Iv Soln) 1,000 mls @ 125 mls/hr IV .Q8H [facility] Last Admin: 06/30/16 07:59 Dose: 125 mls/hr Levofloxacin 500 mg/ IV (Solution) 100 mls @ 100 mls/hr IVPB Q24H [facility] Last Admin: 06/29/16 18:11 Dose: 100 mls/hr Metronidazole 500 mg/ IV (Solution) 100 mls @ 100 mls/hr IVPB Q8HR [facility] Last Admin: 06/30/16 07:59 Dose: 100 mls/hr Lidocaine HCl (.Xylocaine 1% Inj (10mg/Ml) For Iv Start) 0.1 ml INTRADERMA PER PROTOCOL PRN PRN Reason: IV Start Last Admin: 06/28/16 08:58 Dose: 0.1 ml Melatonin (Melatonin) 10 mg PO HS PRN PRN Reason: sleep Metoclopramide HCl (Reglan) 10 mg IVP Q6HR [facility] Last Admin: 06/30/16 05:24 Dose: 10 mg Metoprolol Tartrate (Lopressor) 25 mg PO BID [facility] Last Admin: 06/30/16 07:55 Dose: 25 mg Naloxone HCl (Narcan) 0.2 mg IV Q2M PRN PRN Reason: Opioid Reversal Nicotine (Habitrol 7mg/24hr Patch) 1 patch TRANSDERM DAILY [facility] Last Admin: 06/30/16 07:53 Dose: 1 patch Ondansetron HCl (Zofran) 4 mg IVP Q8HR PRN PRN Reason: Nausea And Vomiting Ondansetron HCl (Zofran) 4 mg IVP Q8HR PRN PRN Reason: Nausea And Vomiting Home Medications Medication Instructions Recorded Confirmed Type Hydrochlorothiazide [Hydrodiuril] 25 mg PO DAILY 03/08/14 06/28/16 History Lisinopril [Prinivil] 5 mg PO BID 03/08/14 06/28/16 History Baclofen [Lioresal] 10 mg PO HS 05/29/16 06/28/16 History Morphine Sulfate [Morphine Sulfate 15 mg PO HS 05/29/16 06/28/16 History ER] oxyCODONE-APAP 10-325MG [Percocet 1 tab PO Q6HR PRN 05/29/16 06/28/16 History 10-325 mg] Ibuprofen [Motrin] 600 mg PO Q8HR PRN 06/13/16 06/28/16 History Melatonin 10 mg PO HS PRN 06/13/16 06/28/16 History diphenhydrAMINE [Benadryl] 50 mg PO HS PRN 06/13/16 06/28/16 History Digoxin 250 mcg PO DAILY 06/28/16 06/28/16 History Allergies Allergy/AdvReac Type Severity Reaction Status Date / Time No Known Allergies Allergy Verified 06/28/16 08:21 Physical Exam Vitals: temperature 97 Blood pressure 153/70 Heart rate 92 Respiratory 20 Pulse ox 90% on room air T-max 100.3 HEENT: Anicteric conjunctiva are pink and moist nasal mucosa grossly intact without significant lesions, there is no thrush.NG tube in place Neck: The neck is supple without significant lymphadenopathy or thyromegaly. Lungs: there is symmetrical or energy. There are a few basilar crackles. No shawn bronchial sounds are heard Heart: Regular rate and rhythm with an audible S1-S2, no S3 no S4. There is no significant murmur click or rub, PMI was nondisplaced. Abdomen: lack of bowel sounds,abdomen is soft minimal tenderness in the recent surgery, without palpable masses or organomegaly. There was no guarding or rebound. Extremities: The upper extremities have excellent pulses they are symmetric, no significant petechiae or telangiectasia. No splinter hemorrhages were noted. The lower extremities are free from significant edema. The peripheral pulses were 2+ and symmetric. Neuro: Awake alert oriented to person place and time. There are no acute new gross focal sensory motor deficits. Results CBC & Chem 7: 06/30/16 08:35 06/30/16 08:35 Labs: Abnormal Lab Results - Last 24 Hours (Table) 06/29/16 06/29/16 06/29/16 Range/Units 13:50 15:53 18:04 WBC (3.8-10.6) k/uL RBC (4.30-5.90) m/uL Neutrophils # (1.3-7.7) k/uL Lymphocytes # (1.0-4.8) k/uL Chloride (98-107) mmol/L BUN (9-20) mg/dL Glucose (74-99) mg/dL POC Glucose (mg/dL) 126 H (75-99) mg/dL Plasma Lactic Acid Sonu 2.5 H* (0.7-2.0) mmol/L Total Bilirubin (0.2-1.3) mg/dL Urine Protein 1+ H (Negative) Urine Blood Moderate H (Negative) Ur Leukocyte Esterase Moderate H (Negative) Urine RBC 52 H (0-5) /hpf Urine WBC 23 H (0-5) /hpf Amorphous Sediment Rare H (None) /hpf Hyaline Casts 15 H (0-2) /lpf Urine Mucus Rare H (None) /hpf Microbiology - Last 24 Hours (Table) 06/29/16 18:04 Urine Culture - Preliminary Urine,Catheterized Chest x-ray: image reviewed (mild congestion no significant pneumonia) Assessment and Plan (1) Fever Narrative/Plan: Pleasant 71-year-old gentleman with a history of colon cancer significant obstructive disease process and underwent a Buddy procedure. There is no status post reversal colostomy. Preoperative endoscopic evaluations without evidence of malignancy. This pleasant gentleman is feeling relatively well today except complaining of significant amounts of pain. With this anesthesia requested to come and evaluate his epidural. Also for IV access since he is lost his current IV route. The patient was begun on levofloxacin and metronidazole postoperatively with his fever. This is reasonable although it is not appearing that he is any significant ALLERGIES. At this time is definitely having discomfort and will expect with anesthesia services will have major improvement of his pain in the near future. His albumin is adequate will need protein supplementation and multivitamin when he is improving. His lactic acid was elevated at the time of his transfer up to [facility] and his lactic acid improved to 1.2 with hydration. He has noted IV as required for further hydration at this time. He does not have evidence of significant pneumonia or urinary tract infection at this point in time the surgical site is without significant abnormality. No other source of sepsis is noted at this time. Status: Acute (2) Leukocytosis Status: Acute
[2016-06-30] MEDS ORDERED: HYDROmorphone 1 MG/ML 1 ML SYRINGE IVP STA (12:26)
[2016-06-30] MEDS: SODIUM CHLORIDE 0.9% EPIDURAL PRN (12:50)
[2016-06-30] MEDS: HYDROMORPHONE EPIDURAL PRN (12:50)
[2016-06-30] MEDS: BUPIVACAINE 0.5% EPIDURAL PRN (12:50)
--- NOTE | 2016-06-30 13:59 | P.PN ---
Subjective Principal diagnosis: Colon Cancer This is a 71-year-old male patient who underwent reversal of colostomy with Lutz procedure yesterday. We were consult said due to an episode of dyspnea and diaphoresis while on the surgical unit. Patient has a history of colon cancer and underwent colostomy in August at which time he declined chemotherapy or radiation. He's had a history of prior AICD placement but declines generator change. Also has a history of hypertension and chronic tobacco use. Upon examination, patient is resting comfortably in bed. He continues to have complaints of episodes of severe low back pain which is chronic. He denies complaints of chest pain, palpitations, shortness of breath, orthopnea, PND or edema. Objective - Vital Signs Vital signs: Vital Signs Temp 97.6 F 06/30/16 07:50 Pulse 95 06/30/16 11:49 Resp 17 06/30/16 11:49 BP 133/65 06/30/16 11:49 Pulse Ox 96 06/30/16 11:49 Intake & Output 06/29/16 06/30/16 06/30/16 18:59 06:59 18:59 Intake Total 13.067 24.9 278 Output Total 1250 Balance 13.067 -1225.1 278 Weight 75.5 kg Intake: Intake, IV Titration 13.067 24.9 278 Amount Bupivacaine (Pf) 0.5% 31. 13.067 24.9 178 3 ml HYDROmorphone 7.5 mg In Sodium Chloride 0.9% 215 ml @ Per Protocol EPIDURAL .Q0M PRN Rx#: [id number] metroNIDAZOLE-NS PMX 500 100 mg In Saline 1 100ml.bag @ 100 mls/hr IVPB Q8HR [facility] Rx#:[id number] Output: Urine 1250 Uretheral ([place]) 400 Other: Voiding Method Indwelling Catheter Indwelling Catheter Indwelling Catheter - Exam PHYSICAL EXAMINATION: HEENT: Head is atraumatic, normocephalic. Pupils equal, round. Neck is supple. There is no elevated jugular venous pressure. HEART EXAMINATION: Heart sounds regular, S1 and S2 with a systolic murmur. CHEST EXAMINATION: Lungs reveal diminished air entry bilaterally. No chest wall tenderness is noted on palpation or with deep breathing. ABDOMEN: Soft, nontender. Bowel sounds are hypoactive. No organomegaly noted. EXTREMITIES: 1+ peripheral pulses with no evidence of peripheral edema and no calf tenderness noted. NEUROLOGIC patient is awake, alert and oriented x3. . - Labs CBC & Chem 7: 06/30/16 08:35 06/30/16 08:35 Labs: Abnormal Lab Results - Last 24 Hours (Table) 06/29/16 06/29/16 06/29/16 Range/Units 13:50 15:53 18:04 WBC (3.8-10.6) k/uL RBC (4.30-5.90) m/uL Neutrophils # (1.3-7.7) k/uL Lymphocytes # (1.0-4.8) k/uL Chloride (98-107) mmol/L BUN (9-20) mg/dL Glucose (74-99) mg/dL POC Glucose (mg/dL) 126 H (75-99) mg/dL Plasma Lactic Acid Sonu 2.5 H* (0.7-2.0) mmol/L Total Bilirubin (0.2-1.3) mg/dL Urine Protein 1+ H (Negative) Urine Blood Moderate H (Negative) Ur Leukocyte Esterase Moderate H (Negative) Urine RBC 52 H (0-5) /hpf Urine WBC 23 H (0-5) /hpf Amorphous Sediment Rare H (None) /hpf Hyaline Casts 15 H (0-2) /lpf Urine Mucus Rare H (None) /hpf 06/30/16 06/30/16 Range/Units 08:35 08:35 WBC 14.1 H (3.8-10.6) k/uL RBC 4.23 L (4.30-5.90) m/uL Neutrophils # 12.4 H (1.3-7.7) k/uL Lymphocytes # 0.7 L (1.0-4.8) k/uL Chloride 109 H (98-107) mmol/L BUN 23 H (9-20) mg/dL Glucose 123 H (74-99) mg/dL POC Glucose (mg/dL) (75-99) mg/dL Plasma Lactic Acid Sonu (0.7-2.0) mmol/L Total Bilirubin 1.4 H (0.2-1.3) mg/dL Urine Protein (Negative) Urine Blood (Negative) Ur Leukocyte Esterase (Negative) Urine RBC (0-5) /hpf Urine WBC (0-5) /hpf Amorphous Sediment (None) /hpf Hyaline Casts (0-2) /lpf Urine Mucus (None) /hpf Microbiology - Last 24 Hours (Table) 06/29/16 18:04 Urine Culture - Preliminary Urine,Catheterized Assessment and Plan Plan: Assessment and plan #1 status post reversal of colostomy #2 episode of diaphoresis and dyspnea #3 chronic low back pain #4 history of nonischemic cardiomyopathy #5 history of AICD, declined generator change #6 chronic tobacco use #7 mild coronary artery disease by cardiac catheterization in 2006 #8 Colon Cancer #9 hypertension From cardiac standpoint, medications were reviewed and we will continue the same. Awaiting results of echocardiogram. Further recommendations to follow. LABELING SPECIALIST note has been reviewed, I agree with a documented findings and plan of care. Patient was seen and examined.
--- NOTE | 2016-06-30 14:46 | ECHOF ---
Referral Reason:cm MEASUREMENTS -------- HEIGHT: 177.8 cm WEIGHT: 75.3 kg BP: 115/75 RVIDd: 3.3 cm (< 3.3) IVSd: 1.5 cm (0.6 - 1.1) LVIDd: 5.2 cm (3.9 - 5.3) LVPWd: 1.5 cm (0.6 - 1.1) IVSs: 1.9 cm LVIDs: 4.5 cm LVPWs: 2.1 cm LA Diam: 4.1 cm (2.7 - 3.8) LAESV Index (A-L): 38.05 ml/m Ao Diam: 3.9 cm (2.0 - 3.7) AV Cusp: 2.5 cm (1.5 - 2.6) MV EXCURSION: 16.312 mm (> 18.000) MV EF SLOPE: 90 mm/s (70 - 150) EPSS: 2.1 cm MV E Logan: 0.92 m/s MV DecT: 133 ms MV A Logan: 1.22 m/s MV E/A Ratio: 0.75 AR PHT: 413 ms RAP: 5.00 mmHg RVSP: 42.06 mmHg FINDINGS -------- Sinus rhythm. Pacerwire seen in RV and RA. This was a technically good study. The left ventricular size is normal. There is moderate concentric left ventricular hypertrophy. There is severe global hypokinesis of LV . Overall left ventricular systolic function is severely impaired with, an EF between 20 - 25 %. Global hypokinesis The right ventricle is normal in size. LA is severely dilated >40 ml/m2 The right atrium is normal in size. Aortic valve is trileaflet and is mildly thickened. There is mild aortic regurgitation. The mitral valve leaflets are mildly thickened. Mild mitral annular calcification present. Moderate mitral regurgitation is present. [id number] tricuspid regurgitation present. There is mild pulmonary hypertension. The right ventricular systolic pressure, as measured by Doppler, is 42.06mmHg. The pulmonic valve was not well visualized. There is no pulmonic regurgitation present. The aortic root is dilated measuring 3.9cm. There is no pericardial effusion. CONCLUSIONS -------- 1. Sinus rhythm. 2. The right atrium is normal in size. 3. Aortic valve is trileaflet and is mildly thickened. 4. There is mild aortic regurgitation. 5. Mild mitral annular calcification present. 6. Moderate mitral regurgitation is present. 7. [id number] tricuspid regurgitation present. 8. There is mild pulmonary hypertension. 9. There is no pulmonic regurgitation present. 10. The aortic root is dilated measuring 3.9cm. 11. There is no pericardial effusion. 12. Pacerwire seen in RV and RA. 13. This was a technically good study. 14. There is moderate concentric left ventricular hypertrophy. 15. There is severe global hypokinesis of LV . 16. Overall left ventricular systolic function is severely impaired with, an EF between 20 - 25 %. 17. Global hypokinesis 18. The right ventricle is normal in size. 19. LA is severely dilated >40 ml/m2 TUNNEL MUCKER: Radha Kitchen RDCS
--- NOTE | 2016-06-30 15:16 | P.PN ---
Subjective Principal diagnosis: fever and abdominal pain 71-year-old male presents to hospital for reversal of his colostomy. This pleasant gentleman had a history of significant abdominal of that related to his colon cancer with obstruction which required a diverting colostomy. He has been doing well over time and desired to reversal. Preoperative endoscopy was performed with no evidence of any malignancy. The patient hasnow been taken to the operating room where he has had the reversal of his colostomy. He was doing well but is now had some mild leukocytosis as well as a fever and with that the infectious diseases consultation was requested. This very pleasant gentleman relates that he is feeling somewhat better today. NG tube is still in place. Looks forward to being able to eat in the next few days. He has a epidural in place and relates that he is not having excellent control of his pain. Anesthesiology has been requested for further evaluation. He also does not have current IV access and anesthesias also requested for IV access. Other than his pain he has no other acute complaints. He is passing no flatus at this point in time. Relates back pain is worse than Abdominal pain. Objective - Vital Signs Vital signs: Vital Signs Temp 97.6 F 06/30/16 07:50 Pulse 95 06/30/16 11:49 Resp 17 06/30/16 11:49 BP 133/65 06/30/16 11:49 Pulse Ox 96 06/30/16 11:49 Intake & Output 06/29/16 06/30/16 06/30/16 18:59 06:59 18:59 Intake Total 13.067 24.9 278 Output Total 1250 Balance 13.067 -1225.1 278 Weight 75.5 kg Intake: Intake, IV Titration 13.067 24.9 278 Amount Bupivacaine (Pf) 0.5% 31. 13.067 24.9 178 3 ml HYDROmorphone 7.5 mg In Sodium Chloride 0.9% 215 ml @ Per Protocol EPIDURAL .Q0M PRN Rx#: [id number] metroNIDAZOLE-NS PMX 500 100 mg In Saline 1 100ml.bag @ 100 mls/hr IVPB Q8HR [facility] Rx#:[id number] Output: Urine 1250 Uretheral ([place]) 400 Other: Voiding Method Indwelling Catheter Indwelling Catheter Indwelling Catheter - Exam HEENT: Anicteric conjunctiva are pink and moist nasal mucosa grossly intact without significant lesions, there is no thrush. NG removed Neck: The neck is supple without significant lymphadenopathy or thyromegaly. Lungs: there is symmetrical or energy. There are a few basilar crackles. No shawn bronchial sounds are heard Heart: Regular rate and rhythm with an audible S1-S2, no S3 no S4. There is no significant murmur click or rub, PMI was nondisplaced. Abdomen: lack of bowel sounds,abdomen is soft minimal tenderness in the recent surgery, without palpable masses or organomegaly. There was no guarding or rebound. Extremities: The upper extremities have excellent pulses they are symmetric, no significant petechiae or telangiectasia. No splinter hemorrhages were noted. The lower extremities are free from significant edema. The peripheral pulses were 2+ and symmetric. Neuro: Awake alert oriented to person place and time. There are no acute new gross focal sensory motor deficits. - Labs CBC & Chem 7: 06/30/16 08:35 06/30/16 08:35 Labs: Abnormal Lab Results - Last 24 Hours (Table) 06/29/16 06/29/16 06/30/16 Range/Units 15:53 18:04 08:35 WBC 14.1 H (3.8-10.6) k/uL RBC 4.23 L (4.30-5.90) m/uL Neutrophils # 12.4 H (1.3-7.7) k/uL Lymphocytes # 0.7 L (1.0-4.8) k/uL Chloride (98-107) mmol/L BUN (9-20) mg/dL Glucose (74-99) mg/dL Plasma Lactic Acid Sonu 2.5 H* (0.7-2.0) mmol/L Total Bilirubin (0.2-1.3) mg/dL Urine Protein 1+ H (Negative) Urine Blood Moderate H (Negative) Ur Leukocyte Esterase Moderate H (Negative) Urine RBC 52 H (0-5) /hpf Urine WBC 23 H (0-5) /hpf Amorphous Sediment Rare H (None) /hpf Hyaline Casts 15 H (0-2) /lpf Urine Mucus Rare H (None) /hpf 06/30/16 Range/Units 08:35 WBC (3.8-10.6) k/uL RBC (4.30-5.90) m/uL Neutrophils # (1.3-7.7) k/uL Lymphocytes # (1.0-4.8) k/uL Chloride 109 H (98-107) mmol/L BUN 23 H (9-20) mg/dL Glucose 123 H (74-99) mg/dL Plasma Lactic Acid Sonu (0.7-2.0) mmol/L Total Bilirubin 1.4 H (0.2-1.3) mg/dL Urine Protein (Negative) Urine Blood (Negative) Ur Leukocyte Esterase (Negative) Urine RBC (0-5) /hpf Urine WBC (0-5) /hpf Amorphous Sediment (None) /hpf Hyaline Casts (0-2) /lpf Urine Mucus (None) /hpf Microbiology - Last 24 Hours (Table) 06/29/16 18:04 Urine Culture - Preliminary Urine,Catheterized Laboratory Results WBC 14.1 k/uL (3.8-10.6) H 06/30/16 08:35 RBC 4.23 m/uL (4.30-5.90) L 06/30/16 08:35 Hgb 13.9 gm/dL (13.0-17.5) 06/30/16 08:35 Hct 42.3 % (39.0-53.0) 06/30/16 08:35 MCV 99.9 fL (80.0-100.0) 06/30/16 08:35 MCH 32.8 pg (25.0-35.0) 06/30/16 08:35 MCHC 32.8 g/dL (31.0-37.0) 06/30/16 08:35 RDW 13.4 % (11.5-15.5) 06/30/16 08:35 Plt Count 202 k/uL (150-450) 06/30/16 08:35 Neutrophils % 88 % 06/30/16 08:35 Lymphocytes % 5 % 06/30/16 08:35 Monocytes % 5 % 06/30/16 08:35 Eosinophils % 1 % 06/30/16 08:35 Basophils % 0 % 06/30/16 08:35 Neutrophils # 12.4 k/uL (1.3-7.7) H 06/30/16 08:35 Lymphocytes # 0.7 k/uL (1.0-4.8) L 06/30/16 08:35 Monocytes # 0.7 k/uL (0-1.0) 06/30/16 08:35 Eosinophils # 0.2 k/uL (0-0.7) 06/30/16 08:35 Basophils # 0.0 k/uL (0-0.2) 06/30/16 08:35 Macrocytosis Slight 06/29/16 07:10 Sodium 141 mmol/L (137-145) 06/30/16 08:35 Potassium 4.7 mmol/L (3.5-5.1) 06/30/16 08:35 Chloride 109 mmol/L (98-107) H 06/30/16 08:35 Carbon Dioxide 24 mmol/L (22-30) 06/30/16 08:35 Anion Gap 8 mmol/L 06/30/16 08:35 BUN 23 mg/dL (9-20) H 06/30/16 08:35 Creatinine 0.85 mg/dL (0.66-1.25) 06/30/16 08:35 Est GFR (MDRD) Af Amer >60 (>60 ml/min/1.73 sqM) 06/30/16 08:35 Est GFR (MDRD) Non-Af >60 (>60 ml/min/1.73 sqM) 06/30/16 08:35 Glucose 123 mg/dL (74-99) H 06/30/16 08:35 POC Glucose (mg/dL) 126 mg/dL (75-99) H 06/29/16 13:50 POC Glu [employer] ID Josefina Beaulieu 06/29/16 13:50 Plasma Lactic Acid Sonu 1.2 mmol/L (0.7-2.0) 06/29/16 23:55 Calcium 9.0 mg/dL (8.4-10.2) 06/30/16 08:35 Total Bilirubin 1.4 mg/dL (0.2-1.3) H 06/30/16 08:35 AST 45 U/L (17-59) 06/30/16 08:35 ALT 27 U/L (21-72) 06/30/16 08:35 Alkaline Phosphatase 63 U/L (38-126) 06/30/16 08:35 Total Protein 6.4 g/dL (6.3-8.2) 06/30/16 08:35 Albumin 3.5 g/dL (3.5-5.0) 06/30/16 08:35 Urine Color Yellow 06/29/16 18:04 Urine Appearance Clear (Clear) 06/29/16 18:04 Urine pH 5.5 (5.0-8.0) 06/29/16 18:04 Ur Specific [place] 1.019 (1.001-1.035) 06/29/16 18:04 Urine Protein 1+ (Negative) H 06/29/16 18:04 Urine Glucose (UA) Negative (Negative) 06/29/16 18:04 Urine Ketones Negative (Negative) 06/29/16 18:04 Urine Blood Moderate (Negative) H 06/29/16 18:04 Urine Nitrate Negative (Negative) 06/29/16 18:04 Urine Bilirubin Negative (Negative) 06/29/16 18:04 Urine Urobilinogen <2.0 mg/dL (<2.0) 06/29/16 18:04 Ur Leukocyte Esterase Moderate (Negative) H 06/29/16 18:04 Urine RBC 52 /hpf (0-5) H 06/29/16 18:04 Urine WBC 23 /hpf (0-5) H 06/29/16 18:04 Ur Squamous Epith Cells <1 /hpf (0-4) 06/29/16 18:04 Amorphous Sediment Rare /hpf (None) H 06/29/16 18:04 Hyaline Casts 15 /lpf (0-2) H 06/29/16 18:04 Urine Mucus Rare /hpf (None) H 06/29/16 18:04 Blood Type O Positive 06/28/16 09:20 Blood Type Recheck No 06/28/16 09:20 Antibody Screen NEGATIVE 06/28/16 09:20 Spec Expiration Date 07/01/2016231906/28/16 09:20 Microbiology 06/29/16 18:04 Urine,Catheterized Urine Culture - Preliminary Assessment and Plan (1) Fever Narrative/Plan: Pleasant 71-year-old gentleman with a history of colon cancer significant obstructive disease process and underwent a Buddy procedure. There is no status post reversal colostomy. Preoperative endoscopic evaluations without evidence of malignancy. This pleasant gentleman is feeling relatively well today except complaining of significant amounts of pain. This however mostly in his back. The patient was begun on levofloxacin and metronidazole postoperatively with his fever. This is reasonable although it is not appearing that he is any significant ALLERGIES. At this time is definitely having discomfort Toradol is allowed with a epidural and this is requested to hopefully help his severe back pain His albumin is adequate will need protein supplementation and multivitamin when he is improving. His lactic acid was elevated at the time of his transfer up to [facility] and his lactic acid improved to 1.2 with hydration. Doing well with IV hydration Status: Acute (2) Leukocytosis Status: Acute
[2016-06-30] MEDS: KETOROLAC 30 MG/ML 1 ML VIAL IVP PRN ×2 (16:09→22:14)
[2016-06-30] MEDS: LEVOFLOXACIN 500MG-D5W PMX 500 MG in DEXTROSE/WATER 1 100ML.BAG IVPB SCH (16:09)
[2016-07-01] MEDS: KETOROLAC 30 MG/ML 1 ML VIAL IVP PRN ×3 (04:08→15:52)
[2016-07-01] MEDS: HYDROmorphone 1 MG/ML 1 ML SYRINGE IVP PRN ×3 (06:07→20:33)
[2016-07-01] MEDS: METOCLOPRAMIDE 5 MG/ML 2 ML VIAL IVP SCH ×4 (06:07→22:47)
[2016-07-01 06:21] LABS: Basophils % (A) 0 %; CH 33.5; Eosinophils # (A) 0.3 k/uL (0-0.7); Eosinophils % (A) 3 %; HCT 38.7 % (39.0-53.0); HDW 2.35; Luc # (Auto) 0.13; Luc % (Auto) 1; Lymphocytes # (A) 0.7 k/uL (1.0-4.8); Lymphocytes % (A) 6 %; MCH 34.3 pg (25.0-35.0); MCHC 33.6 g/dL (31.0-37.0); MCV 101.9 fL (80.0-100.0); Macrocytosis Slight; Mean Platelet Volume 7.9; Monocytes # (A) 0.5 k/uL (0-1.0); Monocytes % (A) 4 %; Neutrophils # (A) 9.5 k/uL (1.3-7.7); Neutrophils % (A) 85 %; RDW 13.5 % (11.5-15.5); WBC 11.1 k/uL (3.8-10.6); WBC (Perox) 11.59
[2016-07-01 06:36] LABS: ALT 28 U/L (21-72); AST 41 U/L (17-59); Alkaline Phosphatase 67 U/L (38-126); Anion Gap 9 mmol/L; Blood Urea Nitrogen 21 mg/dL (9-20); Calcium 8.5 mg/dL (8.4-10.2); Carbon Dioxide 23 mmol/L (22-30); Chloride 107 mmol/L (98-107); Glucose 111 mg/dL (74-99); Non-African American GFR(MDRD) >60 (>60 ml/min/1.73 sqM); Potassium 4.1 mmol/L (3.5-5.1); Sodium 139 mmol/L (137-145); Total Bilirubin 1.4 mg/dL (0.2-1.3); Total Protein 5.9 g/dL (6.3-8.2)
[2016-07-01] MEDS: NICOTINE 7MG/24HR PATCH TRANSDERM SCH (08:06)
[2016-07-01] MEDS: HEPARIN SODIUM,PORCINE 5,000 UNIT/ML 1 ML VIAL SQ SCH ×3 (08:06→22:47)
[2016-07-01] MEDS: IPRATROPIUM-ALBUTEROL 3 ML NEB INHALATION SCH ×4 (08:16→20:32)
[2016-07-01] MEDS: DIGOXIN 250 MCG TAB PO SCH (08:30)
[2016-07-01] MEDS: metroNIDAZOLE-NS PMX 500 MG in SALINE 1 100ML.BAG IVPB SCH ×3 (08:30→22:48)
[2016-07-01] MEDS: amLODIPine 5 MG TAB PO SCH (08:30)
[2016-07-01] MEDS: METOPROLOL TARTRATE 25 MG TAB PO SCH ×2 (08:30→20:32)
--- NOTE | 2016-07-01 09:01 | P.PN ---
Progress Note - Text Date: 07/01/2016 Time: 07:17 The patient is status post, colostomy reversal, postoperative day number 3 The patient has no complaints of nausea vomiting or headache. The patient does not complain of any lower extremity numbness or weakness. The epidural is running at[10] mL per hour. The epidural will be discontinued this morning. Pain medicines will be provided to the patient by the service.
--- NOTE | 2016-07-01 10:16 | P.PN ---
Subjective Principal diagnosis: colostomy reversal Patient doing well today. Passing flatus. No pain. Asking for more to eat. White blood cell count 11.1. Objective - Vital Signs Vital signs: Vital Signs Temp 97.4 F L 07/01/16 08:00 Pulse 71 07/01/16 08:00 Resp 17 07/01/16 08:00 BP 138/70 07/01/16 08:00 Pulse Ox 95 07/01/16 08:00 Intake & Output 06/30/16 07/01/16 07/01/16 18:59 06:59 18:59 Intake Total 838 1470 Output Total 400 1200 Balance 438 270 Weight 74.1 kg Intake: IV 1350 Dextrose 5%-0.45% NaCl 1, 1250 000 ml @ 125 mls/hr IV . Q8H [facility] Rx#:[id number] metroNIDAZOLE-NS PMX 500 100 mg In Saline 1 100ml.bag @ 100 mls/hr IVPB Q8HR [facility] Rx#:[id number] Intake, IV Titration 278 Amount Bupivacaine (Pf) 0.5% 31. 178 3 ml HYDROmorphone 7.5 mg In Sodium Chloride 0.9% 215 ml @ Per Protocol EPIDURAL .Q0M PRN Rx#: [id number] metroNIDAZOLE-NS PMX 500 100 mg In Saline 1 100ml.bag @ 100 mls/hr IVPB Q8HR [facility] Rx#:[id number] Oral 560 120 Output: Urine 400 1200 Other: Voiding Method Indwelling Catheter Indwelling Catheter Indwelling Catheter - Exam Abdomen: Soft, nondistended, mild incisional tenderness, dressings intact - Labs CBC & Chem 7: 07/01/16 06:01 07/01/16 06:01 Labs: Abnormal Lab Results - Last 24 Hours (Table) 07/01/16 07/01/16 Range/Units 06:01 06:01 WBC 11.1 H (3.8-10.6) k/uL RBC 3.80 L (4.30-5.90) m/uL Hct 38.7 L (39.0-53.0) % MCV 101.9 H (80.0-100.0) fL Neutrophils # 9.5 H (1.3-7.7) k/uL Lymphocytes # 0.7 L (1.0-4.8) k/uL BUN 21 H (9-20) mg/dL Glucose 111 H (74-99) mg/dL Total Bilirubin 1.4 H (0.2-1.3) mg/dL Total Protein 5.9 L (6.3-8.2) g/dL Albumin 3.2 L (3.5-5.0) g/dL Microbiology - Last 24 Hours (Table) 06/29/16 18:04 Urine Culture - Final Urine,Catheterized 06/29/16 15:53 Blood Culture - Preliminary Blood No Growth after 24 hours 06/29/16 15:53 Blood Culture - Preliminary Blood No Growth after 24 hours Assessment and Plan (1) Colon cancer Narrative/Plan: Advance to full liquid diet. Ambulate. Status: Acute
--- NOTE | 2016-07-01 10:23 | P.PN ---
Subjective Principal diagnosis: Status post colostomy reversal, sepsis Patient is a 71-year-old male with known history of colon cancer and previous bowel resection and colostomy placement who was admitted to [facility] and underwent colostomy reversal post surgery patient had evidence of tachycardia and hypotension with evidence of sepsis. Since yesterday patient is doing better he is responding well to antibiotics his white blood count is down. Epidural has been removed patient was restarted on oral pain medications. Objective - Vital Signs Vital signs: Vital Signs Temp 97.4 F L 07/01/16 08:00 Pulse 71 07/01/16 08:00 Resp 17 07/01/16 08:00 BP 138/70 07/01/16 08:00 Pulse Ox 95 07/01/16 08:00 Intake & Output 06/30/16 07/01/16 07/01/16 18:59 06:59 18:59 Intake Total 838 1470 Output Total 400 1200 Balance 438 270 Weight 74.1 kg Intake: IV 1350 Dextrose 5%-0.45% NaCl 1, 1250 000 ml @ 125 mls/hr IV . Q8H [facility] Rx#:[id number] metroNIDAZOLE-NS PMX 500 100 mg In Saline 1 100ml.bag @ 100 mls/hr IVPB Q8HR [facility] Rx#:[id number] Intake, IV Titration 278 Amount Bupivacaine (Pf) 0.5% 31. 178 3 ml HYDROmorphone 7.5 mg In Sodium Chloride 0.9% 215 ml @ Per Protocol EPIDURAL .Q0M PRN Rx#: [id number] metroNIDAZOLE-NS PMX 500 100 mg In Saline 1 100ml.bag @ 100 mls/hr IVPB Q8HR [facility] Rx#:[id number] Oral 560 120 Output: Urine 400 1200 Other: Voiding Method Indwelling Catheter Indwelling Catheter Indwelling Catheter - Exam In general patient is alert and oriented 3 in no apparent distress HEENT head normocephalic and atraumatic Neck is supple no JVD no goiter no lymphadenopathy Chest exam reveals a few scattered crackles no wheezing Cardiac exam reveals regular heart sounds S1 and S2 no gallops no murmurs Abdomen is soft with mild diffuse tenderness no organomegaly Extremity exam reveals no edema no cyanosis or clubbing - Labs CBC & Chem 7: 07/01/16 06:01 07/01/16 06:01 Labs: Abnormal Lab Results - Last 24 Hours (Table) 07/01/16 07/01/16 Range/Units 06:01 06:01 WBC 11.1 H (3.8-10.6) k/uL RBC 3.80 L (4.30-5.90) m/uL Hct 38.7 L (39.0-53.0) % MCV 101.9 H (80.0-100.0) fL Neutrophils # 9.5 H (1.3-7.7) k/uL Lymphocytes # 0.7 L (1.0-4.8) k/uL BUN 21 H (9-20) mg/dL Glucose 111 H (74-99) mg/dL Total Bilirubin 1.4 H (0.2-1.3) mg/dL Total Protein 5.9 L (6.3-8.2) g/dL Albumin 3.2 L (3.5-5.0) g/dL Microbiology - Last 24 Hours (Table) 06/29/16 18:04 Urine Culture - Final Urine,Catheterized 06/29/16 15:53 Blood Culture - Preliminary Blood No Growth after 24 hours 06/29/16 15:53 Blood Culture - Preliminary Blood No Growth after 24 hours Assessment and Plan Plan: #1 status post colostomy reversal on admission #2 history of colon cancer was previous bowel resection and colostomy placement #3 sepsis with leukocytosis and elevated lactic acid improving continue was current IV antibiotic Dr. Vega following #4 history of chronic back pain epidural was removed today he will be restarted on Percocet and morphine #5 for DVT prophylaxis patient is on subcu heparin #6 previous history of 1 episode of atrial fibrillation patient has never been on anticoagulation he is maintained on digoxin will continue #7 tobacco abuse counseled regarding smoking cessation continue was nicotine patch
[2016-07-01] MEDS: oxyCODONE-APAP 10-325MG 1 EACH TAB PO PRN ×3 (11:37→23:27)
[2016-07-01] MEDS: DEXTROSE 5%-0.45% NACL 1,000 ML IV SCH ×2 (11:37→17:11)
--- NOTE | 2016-07-01 11:37 | PN ---
Mr. Horn is a 71-year-old male who presented to undergo reversal of his colostomy. He was transferred to the telemetry floor because of symptoms of tachypnea and tachycardia. He is feeling better today. His back pain is better. He started to have flatus. He is ambulating in the room. He denies any dizziness or palpitation. He denies any nausea. He continues to be on Lanoxin 0.25 mg daily, metoprolol tartrate 25 mg twice a day, amlodipine 5 mg daily. PHYSICAL EXAMINATION: Blood pressure 132/70 with a heart in the 70s. LUNGS: Clear. HEART: Regular rate and rhythm. S1, S2, no S3, with a systolic murmur. ABDOMEN: Soft, positive bowel sounds. EXTREMITIES: No edema. Dressing clean. Lab data revealed BUN and creatinine 21 and 0.9. Potassium 4.1. Hemoglobin of 13. He had an echocardiogram that showed a severely impaired left ventricular systolic function with moderate mitral regurgitation. IMPRESSION: 1. Status post reversal of colostomy. 2. History of known severe cardiomyopathy. 3. ICD generator not changed per patient's request. 4. History of hypertension. RECOMMENDATION: I will reinitiate treatment with YOUNG inhibitor, cut down the dose of ( ) stop calcium estephania because of his cardiomyopathy; follow his renal function, increase his level of activity and depending on his progress, further recommendation will be made.
--- NOTE | 2016-07-01 13:34 | P.PN ---
Subjective Principal diagnosis: fever and abdominal pain 71-year-old male presents to hospital for reversal of his colostomy. This pleasant gentleman had a history of significant abdominal of that related to his colon cancer with obstruction which required a diverting colostomy. He has been doing well over time and desired to reversal. Preoperative endoscopy was performed with no evidence of any malignancy. The patient hasnow been taken to the operating room where he has had the reversal of his colostomy. He was doing well but is now had some mild leukocytosis as well as a fever and with that the infectious diseases consultation was requested. This very pleasant gentleman relates that he is feeling somewhat better today. NG tube is still in place. Looks forward to being able to eat in the next few days. He has a epidural in place and relates that he is not having excellent control of his pain. Anesthesiology has been requested for further evaluation. He also does not have current IV access and anesthesias also requested for IV access. Other than his pain he has no other acute complaints. He is passing flatus at this point in time. Feeling considerably better today. The Toradol appears to have a loud significant relief of the severe back pain. Epidural was removed. He is eating a full liquid diet and tolerating it well. Objective - Vital Signs Vital signs: Vital Signs Temp 97.4 F L 07/01/16 08:00 Pulse 75 07/01/16 11:34 Resp 18 07/01/16 11:34 BP 143/65 07/01/16 11:34 Pulse Ox 95 07/01/16 11:34 Intake & Output 06/30/16 07/01/16 07/01/16 18:59 06:59 18:59 Intake Total 838 1470 Output Total 400 1200 Balance 438 270 Weight 74.1 kg Intake: IV 1350 Dextrose 5%-0.45% NaCl 1, 1250 000 ml @ 125 mls/hr IV . Q8H [facility] Rx#:[id number] metroNIDAZOLE-NS PMX 500 100 mg In Saline 1 100ml.bag @ 100 mls/hr IVPB Q8HR [facility] Rx#:[id number] Intake, IV Titration 278 Amount Bupivacaine (Pf) 0.5% 31. 178 3 ml HYDROmorphone 7.5 mg In Sodium Chloride 0.9% 215 ml @ Per Protocol EPIDURAL .Q0M PRN Rx#: [id number] metroNIDAZOLE-NS PMX 500 100 mg In Saline 1 100ml.bag @ 100 mls/hr IVPB Q8HR [facility] Rx#:[id number] Oral 560 120 Output: Urine 400 1200 Other: Voiding Method Indwelling Catheter Indwelling Catheter Indwelling Catheter - Exam HEENT: Anicteric conjunctiva are pink and moist nasal mucosa grossly intact without significant lesions, there is no thrush. NG removed Neck: The neck is supple without significant lymphadenopathy or thyromegaly. Lungs: there is symmetrical or energy. There are a few basilar crackles. No shawn bronchial sounds are heard Heart: Regular rate and rhythm with an audible S1-S2, no S3 no S4. There is no significant murmur click or rub, PMI was nondisplaced. Abdomen: Few bowel sounds are noted. Abdomen is minimally distended. Incision is well approximated without stiffing and drainage. Extremities: The upper extremities have excellent pulses they are symmetric, no significant petechiae or telangiectasia. No splinter hemorrhages were noted. The lower extremities are free from significant edema. The peripheral pulses were 2+ and symmetric. Neuro: Awake alert oriented to person place and time. There are no acute new gross focal sensory motor deficits. - Labs CBC & Chem 7: 07/01/16 06:01 07/01/16 06:01 Labs: Abnormal Lab Results - Last 24 Hours (Table) 07/01/16 07/01/16 Range/Units 06:01 06:01 WBC 11.1 H (3.8-10.6) k/uL RBC 3.80 L (4.30-5.90) m/uL Hct 38.7 L (39.0-53.0) % MCV 101.9 H (80.0-100.0) fL Neutrophils # 9.5 H (1.3-7.7) k/uL Lymphocytes # 0.7 L (1.0-4.8) k/uL BUN 21 H (9-20) mg/dL Glucose 111 H (74-99) mg/dL Total Bilirubin 1.4 H (0.2-1.3) mg/dL Total Protein 5.9 L (6.3-8.2) g/dL Albumin 3.2 L (3.5-5.0) g/dL Microbiology - Last 24 Hours (Table) 06/29/16 18:04 Urine Culture - Final Urine,Catheterized 06/29/16 15:53 Blood Culture - Preliminary Blood No Growth after 24 hours 06/29/16 15:53 Blood Culture - Preliminary Blood No Growth after 24 hours Laboratory Results WBC 11.1 k/uL (3.8-10.6) H 07/01/16 06:01 RBC 3.80 m/uL (4.30-5.90) L 07/01/16 06:01 Hgb 13.0 gm/dL (13.0-17.5) 07/01/16 06:01 Hct 38.7 % (39.0-53.0) L 07/01/16 06:01 MCV 101.9 fL (80.0-100.0) H 07/01/16 06:01 MCH 34.3 pg (25.0-35.0) 07/01/16 06:01 MCHC 33.6 g/dL (31.0-37.0) 07/01/16 06:01 RDW 13.5 % (11.5-15.5) 07/01/16 06:01 Plt Count 189 k/uL (150-450) 07/01/16 06:01 Neutrophils % 85 % 07/01/16 06:01 Lymphocytes % 6 % 07/01/16 06:01 Monocytes % 4 % 07/01/16 06:01 Eosinophils % 3 % 07/01/16 06:01 Basophils % 0 % 07/01/16 06:01 Neutrophils # 9.5 k/uL (1.3-7.7) H 07/01/16 06:01 Lymphocytes # 0.7 k/uL (1.0-4.8) L 07/01/16 06:01 Monocytes # 0.5 k/uL (0-1.0) 07/01/16 06:01 Eosinophils # 0.3 k/uL (0-0.7) 07/01/16 06:01 Basophils # 0.0 k/uL (0-0.2) 07/01/16 06:01 Macrocytosis Slight 07/01/16 06:01 Sodium 139 mmol/L (137-145) 07/01/16 06:01 Potassium 4.1 mmol/L (3.5-5.1) 07/01/16 06:01 Chloride 107 mmol/L (98-107) 07/01/16 06:01 Carbon Dioxide 23 mmol/L (22-30) 07/01/16 06:01 Anion Gap 9 mmol/L 07/01/16 06:01 BUN 21 mg/dL (9-20) H 07/01/16 06:01 Creatinine 0.91 mg/dL (0.66-1.25) 07/01/16 06:01 Est GFR (MDRD) Af Amer >60 (>60 ml/min/1.73 sqM) 07/01/16 06:01 Est GFR (MDRD) Non-Af >60 (>60 ml/min/1.73 sqM) 07/01/16 06:01 Glucose 111 mg/dL (74-99) H 07/01/16 06:01 POC Glucose (mg/dL) 126 mg/dL (75-99) H 06/29/16 13:50 POC Glu [employer] ID Josefina Beaulieu 06/29/16 13:50 Plasma Lactic Acid Sonu 1.2 mmol/L (0.7-2.0) 06/29/16 23:55 Calcium 8.5 mg/dL (8.4-10.2) 07/01/16 06:01 Total Bilirubin 1.4 mg/dL (0.2-1.3) H 07/01/16 06:01 AST 41 U/L (17-59) 07/01/16 06:01 ALT 28 U/L (21-72) 07/01/16 06:01 Alkaline Phosphatase 67 U/L (38-126) 07/01/16 06:01 Total Protein 5.9 g/dL (6.3-8.2) L 07/01/16 06:01 Albumin 3.2 g/dL (3.5-5.0) L 07/01/16 06:01 Urine Color Yellow 06/29/16 18:04 Urine Appearance Clear (Clear) 06/29/16 18:04 Urine pH 5.5 (5.0-8.0) 06/29/16 18:04 Ur Specific [place] 1.019 (1.001-1.035) 06/29/16 18:04 Urine Protein 1+ (Negative) H 06/29/16 18:04 Urine Glucose (UA) Negative (Negative) 06/29/16 18:04 Urine Ketones Negative (Negative) 06/29/16 18:04 Urine Blood Moderate (Negative) H 06/29/16 18:04 Urine Nitrate Negative (Negative) 06/29/16 18:04 Urine Bilirubin Negative (Negative) 06/29/16 18:04 Urine Urobilinogen <2.0 mg/dL (<2.0) 06/29/16 18:04 Ur Leukocyte Esterase Moderate (Negative) H 06/29/16 18:04 Urine RBC 52 /hpf (0-5) H 06/29/16 18:04 Urine WBC 23 /hpf (0-5) H 06/29/16 18:04 Ur Squamous Epith Cells <1 /hpf (0-4) 06/29/16 18:04 Amorphous Sediment Rare /hpf (None) H 06/29/16 18:04 Hyaline Casts 15 /lpf (0-2) H 06/29/16 18:04 Urine Mucus Rare /hpf (None) H 06/29/16 18:04 Blood Type O Positive 06/28/16 09:20 Blood Type Recheck No 06/28/16 09:20 Antibody Screen NEGATIVE 06/28/16 09:20 Spec Expiration Date 07/01/2016231906/28/16 09:20 Microbiology 06/29/16 18:04 Urine,Catheterized Urine Culture - Final 06/29/16 15:53 Blood Blood Culture - Preliminary No Growth after 24 hours 06/29/16 15:53 Blood Blood Culture - Preliminary No Growth after 24 hours Assessment and Plan (1) Fever Narrative/Plan: Pleasant 71-year-old gentleman with a history of colon cancer significant obstructive disease process and underwent a Buddy procedure. There is no status post reversal colostomy. Preoperative endoscopic evaluations without evidence of malignancy. This pleasant gentleman is feeling relatively well today except complaining of significant amounts of pain. This however mostly in his back. The patient was begun on levofloxacin and metronidazole postoperatively with his fever. This is reasonable although it is not appearing that he is any significant ALLERGIES. Yesterday his back pain was more significant than his abdominal pain. Toradol was started. He is now considering more comfortable. We'll continue Toradol for now. His albumin is adequate will need protein supplementation and multivitamin when he is improving. His lactic acid was elevated at the time of his transfer up to [facility] and his lactic acid improved to 1.2 with hydration. Doing well with IV hydration Leukocytosis continued to improve. We'll transition to oral Augmentin to finish a course of 7 days of therapy if he continues to improve in the next day. Status: Acute (2) Leukocytosis Status: Acute
[2016-07-01] MEDS: LEVOFLOXACIN 500MG-D5W PMX 500 MG in DEXTROSE/WATER 1 100ML.BAG IVPB SCH (15:57)
[2016-07-01] MEDS: LISINOPRIL 5 MG TAB PO SCH (20:33)
[2016-07-01] MEDS: MORPHINE SULFATE ER 15 MG TABLET PO SCH (22:46)
[2016-07-01] MEDS: MELATONIN 5 MG TABLET PO PRN (23:28)
[2016-07-02] MEDS: KETOROLAC 30 MG/ML 1 ML VIAL IVP PRN (02:22)
[2016-07-02] MEDS: HYDROmorphone 1 MG/ML 1 ML SYRINGE IVP PRN ×3 (02:23→18:12)
[2016-07-02] MEDS: DEXTROSE 5%-0.45% NACL 1,000 ML IV SCH ×2 (05:02→08:18)
[2016-07-02] MEDS: METOCLOPRAMIDE 5 MG/ML 2 ML VIAL IVP SCH ×4 (06:03→23:54)
[2016-07-02 06:49] LABS: Basophils # (A) 0.1 k/uL (0-0.2); Basophils % (A) 0 %; CH 33.5; CHCM 33.4; Eosinophils # (A) 0.6 k/uL (0-0.7); Eosinophils % (A) 5 %; HCT 41.3 % (39.0-53.0); HDW 2.36; HGB 13.7 gm/dL (13.0-17.5); Luc # (Auto) 0.16; Luc % (Auto) 1; Lymphocytes # (A) 0.8 k/uL (1.0-4.8); Lymphocytes % (A) 7 %; MCH 33.6 pg (25.0-35.0); MCHC 33.3 g/dL (31.0-37.0); Mean Platelet Volume 8.2; Monocytes # (A) 0.4 k/uL (0-1.0); Monocytes % (A) 4 %; Neutrophils # (A) 9.4 k/uL (1.3-7.7); Neutrophils % (A) 83 %; RBC 4.09 m/uL (4.30-5.90); RDW 13.2 % (11.5-15.5); WBC 11.4 k/uL (3.8-10.6); WBC (Perox) 11.68
[2016-07-02 07:00] LABS: ALT 29 U/L (21-72); AST 37 U/L (17-59); Alkaline Phosphatase 69 U/L (38-126); Anion Gap 7 mmol/L; Blood Urea Nitrogen 14 mg/dL (9-20); Calcium 8.8 mg/dL (8.4-10.2); Carbon Dioxide 24 mmol/L (22-30); Chloride 106 mmol/L (98-107); Glucose 129 mg/dL (74-99); Non-African American GFR(MDRD) >60 (>60 ml/min/1.73 sqM); Potassium 3.8 mmol/L (3.5-5.1); Sodium 137 mmol/L (137-145); Total Bilirubin 1.3 mg/dL (0.2-1.3); Total Protein 5.8 g/dL (6.3-8.2)
[2016-07-02] MEDS: metroNIDAZOLE-NS PMX 500 MG in SALINE 1 100ML.BAG IVPB SCH ×2 (08:10→16:35)
[2016-07-02] MEDS: HEPARIN SODIUM,PORCINE 5,000 UNIT/ML 1 ML VIAL SQ SCH ×3 (08:13→23:54)
[2016-07-02] MEDS: LISINOPRIL 5 MG TAB PO SCH ×2 (08:14→20:44)
[2016-07-02] MEDS: DIGOXIN 250 MCG TAB PO SCH (08:14)
[2016-07-02] MEDS: oxyCODONE-APAP 10-325MG 1 EACH TAB PO PRN ×3 (08:15→20:43)
[2016-07-02] MEDS: METOPROLOL TARTRATE 25 MG TAB PO SCH ×2 (08:15→20:44)
[2016-07-02] MEDS: NICOTINE 7MG/24HR PATCH TRANSDERM SCH (08:18)
[2016-07-02] MEDS: IPRATROPIUM-ALBUTEROL 3 ML NEB INHALATION SCH ×4 (09:03→18:39)
--- NOTE | 2016-07-02 12:22 | P.PN ---
Subjective Principal diagnosis: Status post colostomy reversal, sepsis Patient is a 71-year-old male with known history of colon cancer and previous bowel resection and colostomy placement who was admitted to [facility] and underwent colostomy reversal post surgery patient had evidence of tachycardia and hypotension with evidence of sepsis. Since yesterday patient is doing better he is responding well to antibiotics his white blood count is down. Epidural has been removed patient was restarted on oral pain medications. Objective - Vital Signs Vital signs: Vital Signs Temp 96.1 F L 07/02/16 08:00 Pulse 107 H 07/02/16 08:00 Resp 18 07/02/16 08:00 BP 113/74 07/02/16 08:00 Pulse Ox 95 07/02/16 09:04 Intake & Output 07/01/16 07/02/16 07/02/16 18:59 06:59 18:59 Intake Total 1400 725 150 Output Total 800 Balance 600 725 150 Weight 78.5 kg Intake: IV 100 725 100 Dextrose 5%-0.45% NaCl 1, 625 000 ml @ 125 mls/hr IV . Q8H ROSAS Rx#:[id number] metroNIDAZOLE-NS PMX 500 100 100 100 mg In Saline 1 100ml.bag @ 100 mls/hr IVPB Q8HR ROSAS Rx#:[id number] Intake, IV Titration 1000 Amount Dextrose 5%-0.45% NaCl 1, 1000 000 ml @ 125 mls/hr IV . Q8H ROSAS Rx#:[id number] Oral 300 50 Output: Urine 800 Uretheral ([place]) 650 Other: Voiding Method Indwelling Catheter Urinal # Voids 1 - Exam In general patient is alert and oriented 3 in no apparent distress HEENT head normocephalic and atraumatic Neck is supple no JVD no goiter no lymphadenopathy Chest exam reveals a few scattered crackles no wheezing Cardiac exam reveals regular heart sounds S1 and S2 no gallops no murmurs Abdomen is soft with mild diffuse tenderness no organomegaly Extremity exam reveals no edema no cyanosis or clubbing - Labs CBC & Chem 7: 07/02/16 06:28 07/02/16 06:28 Labs: Abnormal Lab Results - Last 24 Hours (Table) 07/02/16 07/02/16 Range/Units 06:28 06:28 WBC 11.4 H (3.8-10.6) k/uL RBC 4.09 L (4.30-5.90) m/uL MCV 101.0 H (80.0-100.0) fL Neutrophils # 9.4 H (1.3-7.7) k/uL Lymphocytes # 0.8 L (1.0-4.8) k/uL Glucose 129 H (74-99) mg/dL Total Protein 5.8 L (6.3-8.2) g/dL Albumin 3.3 L (3.5-5.0) g/dL Microbiology - Last 24 Hours (Table) 06/29/16 15:53 Blood Culture - Preliminary Blood No Growth after 48 hours 06/29/16 15:53 Blood Culture - Preliminary Blood No Growth after 48 hours Assessment and Plan Plan: #1 status post colostomy reversal on admission #2 history of colon cancer was previous bowel resection and colostomy placement #3 sepsis with leukocytosis and elevated lactic acid improving continue was current IV antibiotic Dr. Vega following, possible switch to oral antibiotics tomorrow, possible discharge to home tomorrow if stable. #4 history of chronic back pain epidural was removed today he will be restarted on Percocet and morphine #5 for DVT prophylaxis patient is on subcu heparin #6 previous history of 1 episode of atrial fibrillation patient has never been on anticoagulation he is maintained on digoxin will continue #7 tobacco abuse counseled regarding smoking cessation continue was nicotine patch Continue was current management possible switched to oral antibiotic and discharge to home tomorrow if stable
--- NOTE | 2016-07-02 12:32 | P.PN ---
Subjective Principal diagnosis: Reversal of colostomy. This is a 71-year-old gentleman who underwent reversal of colostomy with Lutz procedure. Cardiology consultation was initially requested because of symptoms of dyspnea. Patient does have history of AICD implant, has refused and changes in the past. Has history also of hypertension and chronic nicotine dependence. Patient was seen and examined this morning, denies any chest pain, breathing is stable. He is quite eager to be discharged home. Objective - Vital Signs Vital signs: Vital Signs Temp 96.1 F L 07/02/16 08:00 Pulse 107 H 07/02/16 08:00 Resp 18 07/02/16 08:00 BP 113/74 07/02/16 08:00 Pulse Ox 95 07/02/16 09:04 Intake & Output 07/01/16 07/02/16 07/02/16 18:59 06:59 18:59 Intake Total 1400 725 150 Output Total 800 Balance 600 725 150 Weight 78.5 kg Intake: IV 100 725 100 Dextrose 5%-0.45% NaCl 1, 625 000 ml @ 125 mls/hr IV . Q8H ROSAS Rx#:[id number] metroNIDAZOLE-NS PMX 500 100 100 100 mg In Saline 1 100ml.bag @ 100 mls/hr IVPB Q8HR ROSAS Rx#:[id number] Intake, IV Titration 1000 Amount Dextrose 5%-0.45% NaCl 1, 1000 000 ml @ 125 mls/hr IV . Q8H ROSAS Rx#:[id number] Oral 300 50 Output: Urine 800 Uretheral ([place]) 650 Other: Voiding Method Indwelling Catheter Urinal # Voids 1 - Exam PHYSICAL EXAMINATION: HEENT: Head is atraumatic, normocephalic. Pupils equal, round. Neck is supple. There is no elevated jugular venous pressure. HEART EXAMINATION: Heart S1, S2 normal. No murmur or gallop heard. CHEST EXAMINATION: Lungs are clear to auscultation and precussion. No chest wall tenderness is noted on palpation or with deep breathing. ABDOMEN: Soft, nontender. Bowel sounds are heard. No organomegaly noted. EXTREMITIES: 2+ peripheral pulses with no evidence of peripheral edema and no calf tenderness noted. NEUROLOGIC patient is awake, alert and oriented -3. . - Labs CBC & Chem 7: 07/02/16 06:28 07/02/16 06:28 Labs: Abnormal Lab Results - Last 24 Hours (Table) 07/02/16 07/02/16 Range/Units 06:28 06:28 WBC 11.4 H (3.8-10.6) k/uL RBC 4.09 L (4.30-5.90) m/uL MCV 101.0 H (80.0-100.0) fL Neutrophils # 9.4 H (1.3-7.7) k/uL Lymphocytes # 0.8 L (1.0-4.8) k/uL Glucose 129 H (74-99) mg/dL Total Protein 5.8 L (6.3-8.2) g/dL Albumin 3.3 L (3.5-5.0) g/dL Microbiology - Last 24 Hours (Table) 06/29/16 15:53 Blood Culture - Preliminary Blood No Growth after 48 hours 06/29/16 15:53 Blood Culture - Preliminary Blood No Growth after 48 hours Assessment and Plan (1) History of colostomy reversal Status: Acute (2) Chronic back pain Status: Acute (3) NICM (nonischemic cardiomyopathy) Status: Acute (4) AICD (automatic cardioverter/defibrillator) present Status: Acute (5) Nicotine dependence Status: Acute (6) HTN (hypertension) Status: Acute (7) Colon cancer Status: Acute Plan: Cardiology's perspective, we will recommend to continue the patient on his current medications. He may be able to be discharged home from our standpoint. A follow-up appointment will be made with Dr. Naranjo in the office post discharge. DNP note has been reviewed, I agree with a documented findings and plan of care. Patient was seen and examined.
[2016-07-02] MEDS: LEVOFLOXACIN 500MG-D5W PMX 500 MG in DEXTROSE/WATER 1 100ML.BAG IVPB SCH (14:48)
--- NOTE | 2016-07-02 17:24 | P.PN ---
Subjective Principal diagnosis: Colon cancer Patient is a 71-year-old white male with history of obstructing colon cancer status post Buddy procedure refusing chemotherapy post procedure. Patient presented for elective colostomy reversal. Patient is evaluated on selective care unit where he is postop day #4 for reversal of colostomy; partial greater omentectomy, and small bowel resection 2. Patient is doing better. Denies nausea or vomiting. Incisional pain controlled. Reports flatus with loose bowel movements. Tolerating full liquid diet. Patient has been up ambulating. Afebrile. WBC 11.4. Patient is urinating without difficulty. Objective - Vital Signs Vital signs: Vital Signs Temp 96.1 F L 07/02/16 12:00 Pulse 80 07/02/16 12:00 Resp 18 07/02/16 12:00 BP 146/67 07/02/16 12:00 Pulse Ox 93 L 07/02/16 12:00 Intake & Output 07/01/16 07/02/16 07/02/16 18:59 06:59 18:59 Intake Total 1400 725 715 Output Total 800 Balance 600 725 715 Weight 78.5 kg Intake: IV 100 725 435 Dextrose 5%-0.45% NaCl 1, 625 335 000 ml @ 125 mls/hr IV . Q8H ROSAS Rx#:[id number] metroNIDAZOLE-NS PMX 500 100 100 100 mg In Saline 1 100ml.bag @ 100 mls/hr IVPB Q8HR ROSAS Rx#:[id number] Intake, IV Titration 1000 Amount Dextrose 5%-0.45% NaCl 1, 1000 000 ml @ 125 mls/hr IV . Q8H ROSAS Rx#:[id number] Oral 300 280 Output: Urine 800 Uretheral ([place]) 650 Other: Voiding Method Indwelling Catheter Urinal # Voids 1 - Exam GENERAL: Pt awake and alert, lying in bed, appears in no apparent distress. ENT: Moist mucous membranes. LUNGS: Breath sounds diminished to auscultation bilaterally. HEART: Heart S1, S2, no S3 or S4. Regular rate and rhythm. No murmurs, rubs or gallops. ABDOMEN: Soft, mild incisional tenderness, nondistended, active bowel sounds. No peritoneal signs. Abdominal dressing intact with old sanguinous drainage. NEUROLOGICAL: Pt oriented x 3. No focal deficits. PSYCH: Calm. SKIN: Warm, dry. - Labs CBC & Chem 7: 07/02/16 06:28 07/02/16 06:28 Labs: Abnormal Lab Results - Last 24 Hours (Table) 07/02/16 07/02/16 Range/Units 06:28 06:28 WBC 11.4 H (3.8-10.6) k/uL RBC 4.09 L (4.30-5.90) m/uL MCV 101.0 H (80.0-100.0) fL Neutrophils # 9.4 H (1.3-7.7) k/uL Lymphocytes # 0.8 L (1.0-4.8) k/uL Glucose 129 H (74-99) mg/dL Total Protein 5.8 L (6.3-8.2) g/dL Albumin 3.3 L (3.5-5.0) g/dL Microbiology - Last 24 Hours (Table) 06/29/16 15:53 Blood Culture - Preliminary Blood No Growth after 48 hours 06/29/16 15:53 Blood Culture - Preliminary Blood No Growth after 48 hours Assessment and Plan Plan: Impression: 1. History of colon cancer with Buddy procedure status post reversal of colostomy; partial greater omentectomy; and small bowel resection 2 on 2016. 2. Leukocytosis. Plan: 1. Advance diet to soft. Decrease IV fluids to 50 mL an hour. Continue supportive treatment and pain management. Continue current medications. Encourage use of incentive spirometry. Continue to follow with medical team. Repeat CBC and BMP in a.m. The above impression and plan have been discussed and directed by Dr. Cortez. Zechariah LOCK acting as scribe for Dr. Cortez.
[2016-07-02] MEDS ORDERED: DEXTROSE 5%-0.45% NACL 1,000 ML IV SCH (17:30)
--- NOTE | 2016-07-02 18:13 | P.PN ---
Subjective Principal diagnosis: fever and abdominal pain 71-year-old male presents to hospital for reversal of his colostomy. This pleasant gentleman had a history of significant abdominal of that related to his colon cancer with obstruction which required a diverting colostomy. He has been doing well over time and desired to reversal. Preoperative endoscopy was performed with no evidence of any malignancy. The patient hasnow been taken to the operating room where he has had the reversal of his colostomy. He was doing well but is now had some mild leukocytosis as well as a fever and with that the infectious diseases consultation was requested. This very pleasant gentleman relates that he is feeling somewhat better today. NG tube is still in place. Looks forward to being able to eat in the next few days. He has a epidural in place and relates that he is not having excellent control of his pain. Anesthesiology has been requested for further evaluation. He also does not have current IV access and anesthesias also requested for IV access. Other than his pain he has no other acute complaints. He is passing flatus at this point in time. Patient relates his feeling poorly today. He's having significant GI upset. He believes the antibiotics are bothering his stomach. When discussing his current therapy relates that he is getting saline and it goes right to his stomach and sours it. Relates everything goes the stomach and bothers it. Objective - Vital Signs Vital signs: Vital Signs Temp 96.1 F L 07/02/16 12:00 Pulse 80 07/02/16 12:00 Resp 18 07/02/16 12:00 BP 146/67 07/02/16 12:00 Pulse Ox 93 L 07/02/16 12:00 Intake & Output 07/01/16 07/02/16 07/02/16 18:59 06:59 18:59 Intake Total 1400 725 715 Output Total 800 Balance 600 725 715 Weight 78.5 kg Intake: IV 100 725 435 Dextrose 5%-0.45% NaCl 1, 625 335 000 ml @ 125 mls/hr IV . Q8H ROSAS Rx#:[id number] metroNIDAZOLE-NS PMX 500 100 100 100 mg In Saline 1 100ml.bag @ 100 mls/hr IVPB Q8HR ROSAS Rx#:[id number] Intake, IV Titration 1000 Amount Dextrose 5%-0.45% NaCl 1, 1000 000 ml @ 125 mls/hr IV . Q8H ROSAS Rx#:[id number] Oral 300 280 Output: Urine 800 Uretheral ([place]) 650 Other: Voiding Method Indwelling Catheter Urinal # Voids 1 - Exam HEENT: Anicteric conjunctiva are pink and moist nasal mucosa grossly intact without significant lesions, there is no thrush. NG removed Neck: The neck is supple without significant lymphadenopathy or thyromegaly. Lungs: there is symmetrical or energy. There are a few basilar crackles. No shawn bronchial sounds are heard Heart: Regular rate and rhythm with an audible S1-S2, no S3 no S4. There is no significant murmur click or rub, PMI was nondisplaced. Abdomen: Few bowel sounds are noted. Abdomen is minimally distended. Incision is well approximated without stiffing and drainage. Extremities: The upper extremities have excellent pulses they are symmetric, no significant petechiae or telangiectasia. No splinter hemorrhages were noted. The lower extremities are free from significant edema. The peripheral pulses were 2+ and symmetric. Neuro: Awake alert oriented to person place and time. There are no acute new gross focal sensory motor deficits. - Labs CBC & Chem 7: 07/02/16 06:28 07/02/16 06:28 Labs: Abnormal Lab Results - Last 24 Hours (Table) 07/02/16 07/02/16 Range/Units 06:28 06:28 WBC 11.4 H (3.8-10.6) k/uL RBC 4.09 L (4.30-5.90) m/uL MCV 101.0 H (80.0-100.0) fL Neutrophils # 9.4 H (1.3-7.7) k/uL Lymphocytes # 0.8 L (1.0-4.8) k/uL Glucose 129 H (74-99) mg/dL Total Protein 5.8 L (6.3-8.2) g/dL Albumin 3.3 L (3.5-5.0) g/dL Microbiology - Last 24 Hours (Table) 06/29/16 15:53 Blood Culture - Preliminary Blood No Growth after 72 hours 06/29/16 15:53 Blood Culture - Preliminary Blood No Growth after 72 hours Laboratory Results WBC 11.4 k/uL (3.8-10.6) H 07/02/16 06:28 RBC 4.09 m/uL (4.30-5.90) L 07/02/16 06:28 Hgb 13.7 gm/dL (13.0-17.5) 07/02/16 06:28 Hct 41.3 % (39.0-53.0) 07/02/16 06:28 MCV 101.0 fL (80.0-100.0) H 07/02/16 06:28 MCH 33.6 pg (25.0-35.0) 07/02/16 06:28 MCHC 33.3 g/dL (31.0-37.0) 07/02/16 06:28 RDW 13.2 % (11.5-15.5) 07/02/16 06:28 Plt Count 213 k/uL (150-450) 07/02/16 06:28 Neutrophils % 83 % 07/02/16 06:28 Lymphocytes % 7 % 07/02/16 06:28 Monocytes % 4 % 07/02/16 06:28 Eosinophils % 5 % 07/02/16 06:28 Basophils % 0 % 07/02/16 06:28 Neutrophils # 9.4 k/uL (1.3-7.7) H 07/02/16 06:28 Lymphocytes # 0.8 k/uL (1.0-4.8) L 07/02/16 06:28 Monocytes # 0.4 k/uL (0-1.0) 07/02/16 06:28 Eosinophils # 0.6 k/uL (0-0.7) 07/02/16 06:28 Basophils # 0.1 k/uL (0-0.2) 07/02/16 06:28 Macrocytosis Slight 07/01/16 06:01 Sodium 137 mmol/L (137-145) 07/02/16 06:28 Potassium 3.8 mmol/L (3.5-5.1) 07/02/16 06:28 Chloride 106 mmol/L (98-107) 07/02/16 06:28 Carbon Dioxide 24 mmol/L (22-30) 07/02/16 06:28 Anion Gap 7 mmol/L 07/02/16 06:28 BUN 14 mg/dL (9-20) 07/02/16 06:28 Creatinine 0.93 mg/dL (0.66-1.25) 07/02/16 06:28 Est GFR (MDRD) Af Amer >60 (>60 ml/min/1.73 sqM) 07/02/16 06:28 Est GFR (MDRD) Non-Af >60 (>60 ml/min/1.73 sqM) 07/02/16 06:28 Glucose 129 mg/dL (74-99) H 07/02/16 06:28 POC Glucose (mg/dL) 126 mg/dL (75-99) H 06/29/16 13:50 POC Glu Bit Sharpener Operator ID Josefina Beaulieu 06/29/16 13:50 Plasma Lactic Acid Sonu 1.2 mmol/L (0.7-2.0) 06/29/16 23:55 Calcium 8.8 mg/dL (8.4-10.2) 07/02/16 06:28 Total Bilirubin 1.3 mg/dL (0.2-1.3) 07/02/16 06:28 AST 37 U/L (17-59) 07/02/16 06:28 ALT 29 U/L (21-72) 07/02/16 06:28 Alkaline Phosphatase 69 U/L (38-126) 07/02/16 06:28 Total Protein 5.8 g/dL (6.3-8.2) L 07/02/16 06:28 Albumin 3.3 g/dL (3.5-5.0) L 07/02/16 06:28 Urine Color Yellow 06/29/16 18:04 Urine Appearance Clear (Clear) 06/29/16 18:04 Urine pH 5.5 (5.0-8.0) 06/29/16 18:04 Ur Specific [place] 1.019 (1.001-1.035) 06/29/16 18:04 Urine Protein 1+ (Negative) H 06/29/16 18:04 Urine Glucose (UA) Negative (Negative) 06/29/16 18:04 Urine Ketones Negative (Negative) 06/29/16 18:04 Urine Blood Moderate (Negative) H 06/29/16 18:04 Urine Nitrate Negative (Negative) 06/29/16 18:04 Urine Bilirubin Negative (Negative) 06/29/16 18:04 Urine Urobilinogen <2.0 mg/dL (<2.0) 06/29/16 18:04 Ur Leukocyte Esterase Moderate (Negative) H 06/29/16 18:04 Urine RBC 52 /hpf (0-5) H 06/29/16 18:04 Urine WBC 23 /hpf (0-5) H 06/29/16 18:04 Ur Squamous Epith Cells <1 /hpf (0-4) 06/29/16 18:04 Amorphous Sediment Rare /hpf (None) H 06/29/16 18:04 Hyaline Casts 15 /lpf (0-2) H 06/29/16 18:04 Urine Mucus Rare /hpf (None) H 06/29/16 18:04 Blood Type O Positive 06/28/16 09:20 Blood Type Recheck No 06/28/16 09:20 Antibody Screen NEGATIVE 06/28/16 09:20 Spec Expiration Date 07/01/2016231906/28/16 09:20 Microbiology 06/29/16 15:53 Blood Blood Culture - Preliminary No Growth after 72 hours 06/29/16 15:53 Blood Blood Culture - Preliminary No Growth after 72 hours 06/29/16 18:04 Urine,Catheterized Urine Culture - Final Assessment and Plan (1) Fever Narrative/Plan: Pleasant 71-year-old gentleman with a history of colon cancer significant obstructive disease process and underwent a Buddy procedure. There is no status post reversal colostomy. Preoperative endoscopic evaluations without evidence of malignancy. This pleasant gentleman is feeling relatively well today except complaining of significant amounts of pain. This however mostly in his back. The patient was begun on levofloxacin and metronidazole postoperatively with his fever. This is reasonable although it is not appearing that he is any significant ALLERGIES. Yesterday his back pain was more significant than his abdominal pain. Toradol was started. He is now considering more comfortable. We'll continue Toradol for now. His albumin is adequate will need protein supplementation and multivitamin when he is improving. His lactic acid was elevated at the time of his transfer up to [facility] and his lactic acid improved to 1.2 with hydration. Doing well with IV hydration Patient is quite irritated today. He will examined buttocks are causing him to have significant GI upset. We discussed this also possibly the Toradol was causing some GI upset. His back pain is stabilized and improved. Thus would discontinue the Toradol. As far as antibiotic therapy the patient is now refusing further doses. He will be monitored closely off of antibiotic therapy. Status: Acute (2) Leukocytosis Status: Acute
[2016-07-02] MEDS: SUCRALFATE 1 GM TAB PO SCH ×2 (18:22→20:44)
[2016-07-02] MEDS: MORPHINE SULFATE ER 15 MG TABLET PO SCH (21:04)
[2016-07-02] MEDS: MELATONIN 5 MG TABLET PO PRN (21:31)
[2016-07-03 06:09] VITALS: RESP 18; TEMP 97.2
[2016-07-03] MEDS: oxyCODONE-APAP 10-325MG 1 EACH TAB PO PRN (06:37)
[2016-07-03] MEDS: METOCLOPRAMIDE 5 MG/ML 2 ML VIAL IVP SCH (06:37)
[2016-07-03] MEDS: SUCRALFATE 1 GM TAB PO SCH (06:38)
[2016-07-03 07:18] LABS: Basophils % (A) 0 %; CH 33.5; CHCM 33.4; Eosinophils # (A) 0.6 k/uL (0-0.7); Eosinophils % (A) 5 %; HCT 43.2 % (39.0-53.0); HDW 2.34; HGB 14.3 gm/dL (13.0-17.5); Luc # (Auto) 0.14; Luc % (Auto) 1; Lymphocytes # (A) 0.8 k/uL (1.0-4.8); Lymphocytes % (A) 7 %; MCH 33.3 pg (25.0-35.0); MCHC 33.1 g/dL (31.0-37.0); MCV 100.6 fL (80.0-100.0); Mean Platelet Volume 7.4; Monocytes # (A) 0.5 k/uL (0-1.0); Monocytes % (A) 4 %; Neutrophils # (A) 9.5 k/uL (1.3-7.7); Neutrophils % (A) 83 %; RBC 4.29 m/uL (4.30-5.90); RDW 13.2 % (11.5-15.5); WBC 11.5 k/uL (3.8-10.6); WBC (Perox) 11.66
[2016-07-03 07:39] LABS: ALT 30 U/L (21-72); AST 41 U/L (17-59); Alkaline Phosphatase 70 U/L (38-126); Anion Gap 12 mmol/L; Blood Urea Nitrogen 12 mg/dL (9-20); Calcium 8.9 mg/dL (8.4-10.2); Carbon Dioxide 21 mmol/L (22-30); Chloride 107 mmol/L (98-107); Glucose 98 mg/dL (74-99); Non-African American GFR(MDRD) >60 (>60 ml/min/1.73 sqM); Potassium 3.8 mmol/L (3.5-5.1); Sodium 140 mmol/L (137-145); Total Bilirubin 1.3 mg/dL (0.2-1.3)
[2016-07-03] MEDS: METOPROLOL TARTRATE 25 MG TAB PO SCH (08:46)
[2016-07-03] MEDS: LISINOPRIL 5 MG TAB PO SCH (08:46)
[2016-07-03] MEDS: HEPARIN SODIUM,PORCINE 5,000 UNIT/ML 1 ML VIAL SQ SCH (08:46)
[2016-07-03] MEDS: NICOTINE 7MG/24HR PATCH TRANSDERM SCH (08:46)
[2016-07-03] MEDS: DIGOXIN 250 MCG TAB PO SCH (08:46)
--- NOTE | 2016-07-03 09:34 | P.DS ---
Providers Date of admission: 06/28/16 07:49 Expected date of discharge: 07/03/16 Attending physician: Marlon Cortez Consults: 06/28/16 11:30 Consult Physician Routine Consulting Provider: Koko Pat Consult Reason/Comments: Medical management Do you want consulting provider notified?: Yes 06/29/16 13:56 Consult Physician Urgent Consulting Provider: Ezra Naranjo Consult Reason/Comments: elevated heart rate Do you want consulting provider notified?: Yes 06/29/16 14:04 Consult Physician Urgent Consulting Provider: Ezra Naranjo Consult Reason/Comments: sinus tach/diaphoretic Do you want consulting provider notified?: Yes 06/29/16 15:04 Consult Physician Routine Consulting Provider: Pacheco Vega Consult Reason/Comments: elevated WBC, low grade temp Do you want consulting provider notified?: Yes Primary care physician: Koko Camilojar [facility] Course: Diagnosis on discharge: #1 history of colon cancer was previous bowel resection and colostomy placement , patient underwent colostomy reversal during this admission #2 postoperative sepsis with leukocytosis and elevated lactic acid, treated with IV fluid IV antibiotic improved #3 essential hypertension #4 previous history of 1 episode of atrial fibrillation maintained on digoxin patient has never been on Coumadin before #5 nicotine dependence counseled regarding smoking cessation during this admission more than 15 minutes patient was given nicotine patch #6 history of chronic back pain maintained on morphine and Percocet at home Hospital course patient is a 71-year-old male who was admitted to [facility] by and underwent colostomy reversal with partial omentectomy, post surgery patient had an episode of hypotension leukocytosis and the elevated lactic acid all suggestive of sepsis he was transferred to telemetry floor he was treated with IV antibiotic and IV fluid he improved he was seen by Dr. Vega in infectious disease consultation he was switched to oral antibiotic and was discharged home on 07/03/2016 Patient has a known history of chronic back pain he was maintained on morphine and Percocet at home during this admission initially patient was on IV pain medication subsequently he was switched to his home doses of morphine and Percocet. Patient has a known history of smoking he was counseled regarding smoking cessation he was given a prescription for nicotine patch During this admission blood pressure medication were adjusted diuretic was discontinued he was continued on lisinopril and was continued on metoprolol He will be followed in our office within one week for further evaluation and treatment Also follow-up with Dr. Cortez for surgical follow-up within 1 week Plan - Discharge Summary New Discharge Prescriptions: Amoxic-Pot Clav 500-125 mg [Augmentin 500-125 mg] 1 tab PO Q12HR #14 tab Discharge Medication List Lisinopril [Prinivil] 5 mg PO BID 03/08/14 [History] Baclofen [Lioresal] 10 mg PO HS 05/29/16 [History] Morphine Sulfate [Morphine Sulfate ER] 15 mg PO HS 05/29/16 [History] oxyCODONE-APAP 10-325MG [Percocet 10-325 mg] 1 tab PO Q6HR PRN 05/29/16 [History ] Melatonin 10 mg PO HS PRN 06/13/16 [History] diphenhydrAMINE [Benadryl] 50 mg PO HS PRN 06/13/16 [History] Digoxin 250 mcg PO DAILY 06/28/16 [History] Amoxic-Pot Clav 500-125 mg [Augmentin 500-125 mg] 1 tab PO Q12HR #14 tab [Rx] Metoprolol Tartrate [Lopressor] 25 mg PO BID tab 07/03/16 [Rx] Nicotine 7Mg/24Hr Patch [Habitrol] 1 patch TRANSDERM DAILY patch 07/03/16 [Rx] Follow up Appointment(s)/Referral(s): Ezra Naranjo MD [STAFF PHYSICIAN] - 2 Weeks Koko Pat MD [Primary Care Provider] - 1 Week Marlon Cortez MD [STAFF PHYSICIAN] - 1 Week Patient Instructions/Handouts: Colectomy (DC) Activity/Diet/Wound Care/Special Instructions: No heavy lifting, pushing, or pulling items greater than 10 pounds. Soft diet Shower daily, no soaking in bath tubs, pools, or hot tubs. No driving while taking pain medication. Notify surgeon with any signs or symptoms of infection, increased pain, or not tolerating diet. Discharge Disposition: HOME SELF-CARE
[2016-07-03 10:12] VITALS: BP 143/71; PULSE 104
--- NOTE | 2016-07-03 14:40 | P.PN ---
Subjective Principal diagnosis: Reversal of colostomy. This is a 71-year-old gentleman who underwent reversal of colostomy with Lutz procedure. Cardiology consultation was initially requested because of symptoms of dyspnea. Patient does have history of AICD implant, has refused and changes in the past. Has history also of hypertension and chronic nicotine dependence. Patient was seen and examined this morning, denies any chest pain, breathing is stable. Planning on discharge home today. We'll make him a follow -up appointment to see Dr. Naranjo in the office post discharge. Objective - Vital Signs Vital signs: Vital Signs Temp 97.2 F L 07/03/16 04:00 Pulse 104 H 07/03/16 08:00 Resp 18 07/03/16 08:00 BP 143/71 07/03/16 08:00 Pulse Ox 96 07/03/16 08:00 Intake & Output 07/02/16 07/03/16 07/03/16 18:59 06:59 18:59 Intake Total 735 250 240 Balance 735 250 240 Weight 75.2 kg Intake: IV 455 Dextrose 5%-0.45% NaCl 1, 335 000 ml @ 125 mls/hr IV . Q8H ROSAS Rx#:[id number] Invasive Line 3 20 metroNIDAZOLE-NS PMX 500 100 mg In Saline 1 100ml.bag @ 100 mls/hr IVPB Q8HR ROSAS Rx#:[id number] Oral 280 250 240 Other: Voiding Method Urinal # Voids 1 - Exam PHYSICAL EXAMINATION: HEENT: Head is atraumatic, normocephalic. Pupils equal, round. Neck is supple. There is no elevated jugular venous pressure. HEART EXAMINATION: Heart S1, S2 normal. No murmur or gallop heard. CHEST EXAMINATION: Lungs are clear to auscultation and precussion. No chest wall tenderness is noted on palpation or with deep breathing. ABDOMEN: Soft, nontender. Bowel sounds are heard. No organomegaly noted. EXTREMITIES: 2+ peripheral pulses with no evidence of peripheral edema and no calf tenderness noted. NEUROLOGIC patient is awake, alert and oriented -3. . - Labs CBC & Chem 7: 07/03/16 07:00 07/03/16 07:00 Labs: Abnormal Lab Results - Last 24 Hours (Table) 07/03/16 07/03/16 Range/Units 07:00 07:00 WBC 11.5 H (3.8-10.6) k/uL RBC 4.29 L (4.30-5.90) m/uL MCV 100.6 H (80.0-100.0) fL Neutrophils # 9.5 H (1.3-7.7) k/uL Lymphocytes # 0.8 L (1.0-4.8) k/uL Carbon Dioxide 21 L (22-30) mmol/L Total Protein 6.0 L (6.3-8.2) g/dL Albumin 3.4 L (3.5-5.0) g/dL Microbiology - Last 24 Hours (Table) 06/29/16 15:53 Blood Culture - Preliminary Blood No Growth after 72 hours 06/29/16 15:53 Blood Culture - Preliminary Blood No Growth after 72 hours Assessment and Plan (1) History of colostomy reversal Status: Acute (2) Chronic back pain Status: Acute (3) NICM (nonischemic cardiomyopathy) Status: Acute (4) AICD (automatic cardioverter/defibrillator) present Status: Acute (5) Nicotine dependence Status: Acute (6) HTN (hypertension) Status: Acute (7) Colon cancer Status: Acute Plan: Cardiology's perspective, we will recommend to continue the patient on his current medications. He may be able to be discharged home from our standpoint. A follow-up appointment will be made with Dr. Naranjo in the office post discharge. DNP note has been reviewed, I agree with a documented findings and plan of care. Patient was seen and examined.
--- NOTE | 2016-07-03 18:54 | P.PN ---
Subjective Principal diagnosis: fever and abdominal pain 71-year-old male presents to hospital for reversal of his colostomy. This pleasant gentleman had a history of significant abdominal of that related to his colon cancer with obstruction which required a diverting colostomy. He has been doing well over time and desired to reversal. Preoperative endoscopy was performed with no evidence of any malignancy. The patient hasnow been taken to the operating room where he has had the reversal of his colostomy. He was doing well but is now had some mild leukocytosis as well as a fever and with that the infectious diseases consultation was requested. This very pleasant gentleman relates that he is feeling somewhat better today. NG tube is still in place. Looks forward to being able to eat in the next few days. He has a epidural in place and relates that he is not having excellent control of his pain. Anesthesiology has been requested for further evaluation. He also does not have current IV access and anesthesias also requested for IV access. Other than his pain he has no other acute complaints. He is passing flatus at this point in time. Patient relates was feeling quite poorly yesterday he was having significant GI upset. He believes the antibiotics are bothering his stomach. When discussing his current therapy relates that he is getting saline and it goes right to his stomach and sours it. Relates everything goes the stomach and bothers it. The antibiotics were discontinued and he feels better today. Ready for discharge Objective - Vital Signs Vital signs: Vital Signs Temp 97.2 F L 07/03/16 04:00 Pulse 104 H 07/03/16 08:00 Resp 18 07/03/16 08:00 BP 143/71 07/03/16 08:00 Pulse Ox 96 07/03/16 08:00 Intake & Output 07/02/16 07/03/16 07/03/16 18:59 06:59 18:59 Intake Total 735 250 240 Balance 735 250 240 Weight 75.2 kg Intake: IV 455 Dextrose 5%-0.45% NaCl 1, 335 000 ml @ 125 mls/hr IV . Q8H ROSAS Rx#:[id number] Invasive Line 3 20 metroNIDAZOLE-NS PMX 500 100 mg In Saline 1 100ml.bag @ 100 mls/hr IVPB Q8HR ROSAS Rx#:[id number] Oral 280 250 240 Other: Voiding Method Urinal # Voids 1 - Exam HEENT: Anicteric conjunctiva are pink and moist nasal mucosa grossly intact without significant lesions, there is no thrush. NG removed Neck: The neck is supple without significant lymphadenopathy or thyromegaly. Lungs: there is symmetrical or energy. There are a few basilar crackles. No shawn bronchial sounds are heard Heart: Regular rate and rhythm with an audible S1-S2, no S3 no S4. There is no significant murmur click or rub, PMI was nondisplaced. Abdomen: Few bowel sounds are noted. Abdomen is minimally distended. Incision is well approximated without stiffing and drainage. Extremities: The upper extremities have excellent pulses they are symmetric, no significant petechiae or telangiectasia. No splinter hemorrhages were noted. The lower extremities are free from significant edema. The peripheral pulses were 2+ and symmetric. Neuro: Awake alert oriented to person place and time. There are no acute new gross focal sensory motor deficits. - Labs CBC & Chem 7: 07/03/16 07:00 07/03/16 07:00 Labs: Abnormal Lab Results - Last 24 Hours (Table) 07/03/16 07/03/16 Range/Units 07:00 07:00 WBC 11.5 H (3.8-10.6) k/uL RBC 4.29 L (4.30-5.90) m/uL MCV 100.6 H (80.0-100.0) fL Neutrophils # 9.5 H (1.3-7.7) k/uL Lymphocytes # 0.8 L (1.0-4.8) k/uL Carbon Dioxide 21 L (22-30) mmol/L Total Protein 6.0 L (6.3-8.2) g/dL Albumin 3.4 L (3.5-5.0) g/dL Microbiology - Last 24 Hours (Table) 06/29/16 15:53 Blood Culture - Preliminary Blood No Growth after 96 hours 06/29/16 15:53 Blood Culture - Preliminary Blood No Growth after 96 hours Laboratory Results WBC 11.5 k/uL (3.8-10.6) H 07/03/16 07:00 RBC 4.29 m/uL (4.30-5.90) L 07/03/16 07:00 Hgb 14.3 gm/dL (13.0-17.5) 07/03/16 07:00 Hct 43.2 % (39.0-53.0) 07/03/16 07:00 MCV 100.6 fL (80.0-100.0) H 07/03/16 07:00 MCH 33.3 pg (25.0-35.0) 07/03/16 07:00 MCHC 33.1 g/dL (31.0-37.0) 07/03/16 07:00 RDW 13.2 % (11.5-15.5) 07/03/16 07:00 Plt Count 243 k/uL (150-450) 07/03/16 07:00 Neutrophils % 83 % 07/03/16 07:00 Lymphocytes % 7 % 07/03/16 07:00 Monocytes % 4 % 07/03/16 07:00 Eosinophils % 5 % 07/03/16 07:00 Basophils % 0 % 07/03/16 07:00 Neutrophils # 9.5 k/uL (1.3-7.7) H 07/03/16 07:00 Lymphocytes # 0.8 k/uL (1.0-4.8) L 07/03/16 07:00 Monocytes # 0.5 k/uL (0-1.0) 07/03/16 07:00 Eosinophils # 0.6 k/uL (0-0.7) 07/03/16 07:00 Basophils # 0.0 k/uL (0-0.2) 07/03/16 07:00 Macrocytosis Slight 07/01/16 06:01 Sodium 140 mmol/L (137-145) 07/03/16 07:00 Potassium 3.8 mmol/L (3.5-5.1) 07/03/16 07:00 Chloride 107 mmol/L (98-107) 07/03/16 07:00 Carbon Dioxide 21 mmol/L (22-30) L 07/03/16 07:00 Anion Gap 12 mmol/L 07/03/16 07:00 BUN 12 mg/dL (9-20) 07/03/16 07:00 Creatinine 0.91 mg/dL (0.66-1.25) 07/03/16 07:00 Est GFR (MDRD) Af Amer >60 (>60 ml/min/1.73 sqM) 07/03/16 07:00 Est GFR (MDRD) Non-Af >60 (>60 ml/min/1.73 sqM) 07/03/16 07:00 Glucose 98 mg/dL (74-99) 07/03/16 07:00 POC Glucose (mg/dL) 126 mg/dL (75-99) H 06/29/16 13:50 POC Glu Color Receiver ID Josefina Beaulieu 06/29/16 13:50 Plasma Lactic Acid Sonu 1.2 mmol/L (0.7-2.0) 06/29/16 23:55 Calcium 8.9 mg/dL (8.4-10.2) 07/03/16 07:00 Total Bilirubin 1.3 mg/dL (0.2-1.3) 07/03/16 07:00 AST 41 U/L (17-59) 07/03/16 07:00 ALT 30 U/L (21-72) 07/03/16 07:00 Alkaline Phosphatase 70 U/L (38-126) 07/03/16 07:00 Total Protein 6.0 g/dL (6.3-8.2) L 07/03/16 07:00 Albumin 3.4 g/dL (3.5-5.0) L 07/03/16 07:00 Urine Color Yellow 06/29/16 18:04 Urine Appearance Clear (Clear) 06/29/16 18:04 Urine pH 5.5 (5.0-8.0) 06/29/16 18:04 Ur Specific [place] 1.019 (1.001-1.035) 06/29/16 18:04 Urine Protein 1+ (Negative) H 06/29/16 18:04 Urine Glucose (UA) Negative (Negative) 06/29/16 18:04 Urine Ketones Negative (Negative) 06/29/16 18:04 Urine Blood Moderate (Negative) H 06/29/16 18:04 Urine Nitrate Negative (Negative) 06/29/16 18:04 Urine Bilirubin Negative (Negative) 06/29/16 18:04 Urine Urobilinogen <2.0 mg/dL (<2.0) 06/29/16 18:04 Ur Leukocyte Esterase Moderate (Negative) H 06/29/16 18:04 Urine RBC 52 /hpf (0-5) H 06/29/16 18:04 Urine WBC 23 /hpf (0-5) H 06/29/16 18:04 Ur Squamous Epith Cells <1 /hpf (0-4) 06/29/16 18:04 Amorphous Sediment Rare /hpf (None) H 06/29/16 18:04 Hyaline Casts 15 /lpf (0-2) H 06/29/16 18:04 Urine Mucus Rare /hpf (None) H 06/29/16 18:04 Blood Type O Positive 06/28/16 09:20 Blood Type Recheck No 06/28/16 09:20 Antibody Screen NEGATIVE 06/28/16 09:20 Spec Expiration Date 07/01/2016 - 231906/28/16 09:20 Microbiology 06/29/16 15:53 Blood Blood Culture - Preliminary No Growth after 96 hours 06/29/16 15:53 Blood Blood Culture - Preliminary No Growth after 96 hours 06/29/16 18:04 Urine,Catheterized Urine Culture - Final Assessment and Plan (1) Fever Narrative/Plan: Pleasant 71-year-old gentleman with a history of colon cancer significant obstructive disease process and underwent a Buddy procedure. There is no status post reversal colostomy. Preoperative endoscopic evaluations without evidence of malignancy. This pleasant gentleman is feeling relatively well today except complaining of significant amounts of pain. This however mostly in his back. The patient was begun on levofloxacin and metronidazole postoperatively with his fever. This is reasonable although it is not appearing that he is any significant ALLERGIES. Yesterday his back pain was more significant than his abdominal pain. Toradol was started. He is now considering more comfortable. We'll continue Toradol for now. His albumin is adequate will need protein supplementation and multivitamin when he is improving. His lactic acid was elevated at the time of his transfer up to [facility] and his lactic acid improved to 1.2 with hydration. Overalls improved and is ready for discharge to home. Patient is feeling better. Ready for discharge to home. He is off of antibiotic therapy. If he will complete a course of oral Augmentin it would be ideal. Status: Acute (2) Leukocytosis Status: Acute
== END 2016-07-03 11:50 | disposition home or self-care (01) | DRG 329 ==
LOC: 2ORWHC 07:49 → 3SUR 11:36 → 6SEL 06-29 14:11
PROVIDERS: ADMIT Surgery; ATTEND Surgery
PROC: 0DB80ZZ Excision of Small Intestine, Open Approach (ICD-10-PCS; 2016-06-28)
PROC: 0DBS0ZZ (ICD-10-PCS; 2016-06-28)
PROC: 0WQF0ZZ Repair Abdominal Wall, Open Approach (ICD-10-PCS; 2016-06-28)
PROC: 05H533Z Insertion of Infusion Device into Right Subclavian Vein, Percutaneous Approach (ICD-10-PCS; principal; 2016-06-29)
DX: Z43.3 Encounter for attention to colostomy (principal); A41.9 Sepsis, unspecified organism; N17.9 Acute kidney failure, unspecified; I50.9 Heart failure, unspecified; I11.0 Hypertensive heart disease with heart failure; K63.9 Disease of intestine, unspecified; I42.9 Cardiomyopathy, unspecified; T81.4XXA Infection following a procedure, initial encounter; E87.5 Hyperkalemia; E78.5 Hyperlipidemia, unspecified; F17.210 Nicotine dependence, cigarettes, uncomplicated; G89.29 Other chronic pain; I25.10 Atherosclerotic heart disease of native coronary artery without angina pectoris; I48.91 Unspecified atrial fibrillation; J44.9 Chronic obstructive pulmonary disease, unspecified; Z95.810 Presence of automatic (implantable) cardiac defibrillator; Z98.0 Intestinal bypass and anastomosis status; Z79.899 Other long term (current) drug therapy; Z85.038 Personal history of other malignant neoplasm of large intestine
CPT/HCPCS: 71010; 71020; 80048; 80053; 81001; 83605; 84132; 85025; 86850; 86900; 86901; 87040; 87086; 88304; 88305; 88307; 88309; 93005; 93306; 94760

== ENCOUNTER → 2016-08-18 | Outpatient (CLI) | payer MEDICARE ==
--- NOTE | 2016-08-18 18:00 | PE ---
Nuclear medicine PET/CT HISTORY: Colon carcinoma Patient received 13 mCi F-18 FDG intravenously and delayed scanning performed from skull base to the mid thighs. Localization and attenuation correction CT scan was performed. No comparisons Neck and chest: No suspicious hypermetabolic uptake. No evident adenopathy. There is no lung mass, no mediastinal, axillary, or hilar adenopathy. ABDOMEN: No evident liver mass. No suspicious hypermetabolic uptake. Colonic interposition present an terior to the colon. Large right-sided exophytic renal cyst at the upper pole, cystic foci also prese nt associated with the left kidney. No evident pelvic adenopathy. Osseous structures: Unremarkable other than osteoarthritic change in the left hip, degenerative disc changes and facet arthropathy in the lower lumbar spine. IMPRESSION: No suspicious hypermetabolic uptake is evident.
== END | disposition home or self-care (01) ==
LOC: RADPETMAIN 14:28
PROVIDERS: ATTEND Internal Medicine Hematology & Oncology
DX: C18.7 Malignant neoplasm of sigmoid colon (principal)
CPT/HCPCS: 78815; A9552

== ENCOUNTER → 2017-03-29 | Outpatient (CLI) | payer MEDICARE ==
--- NOTE | 2017-03-29 11:12 | XR ---
EXAM TYPE: LUMBAR SPINE X RAY SERIES COMPARISON: NONE HISTORY: Back pain TECHNIQUE: 4 views are submitted. FINDINGS: Alignment is anatomic. The pedicles are intact. The transverse processes are intact. There is mult ilevel severe degenerative disc disease with sclerosis involving the endplates. Grade 1 anterolisthes is L4 on L5 with severe multilevel facet arthropathy. There is severe degenerative disc disease at le vels L1-L5. Vascular calcifications noted. Mild spinous process arthropathy is noted. IMPRESSION: 1. Severe multilevel degenerative disc disease and facet arthropathy with grade 1 anterolisthesis L4 on L5. If there is concern for metastasis correlate with MRI.
== END | disposition home or self-care (01) ==
LOC: RADXRMAIN 10:46
PROVIDERS: ATTEND Internal Medicine
DX: M43.16 Spondylolisthesis, lumbar region (principal); M51.36 Other intervertebral disc degeneration, lumbar region; M46.86 Other specified inflammatory spondylopathies, lumbar region
CPT/HCPCS: 72110

== ENCOUNTER → 2017-06-05 | Outpatient (CLI) | payer MEDICARE ==
--- NOTE | 2017-06-05 17:47 | CT ---
EXAMINATION TYPE: CT thor lumbar spine wo con DATE OF EXAM: 06/05/2017 COMPARISON: NONE HISTORY: Complain os severe back pain. CT DLP: 659.3 mGycm Automated exposure control for dose reduction was used. FINDINGS: The thoracic vertebra show fairly normal alignment. There is 7 mm anterior subluxation of L4 in relat ion L5 without spondylolysis. There is multilevel extensive hypertrophic facet arthropathy in the lum bar spine. There is moderate narrowing of the lumbar disc spaces with sparing at L5-S1. There is slight accentuation of the kyphotic curvature. There is hypertrophic spurring anteriorly thr oughout the thoracic spine. I see no compression fracture. The posterior elements are intact. There i s no paraspinal mass. There is apparent old anterior cervical fusion or fusion anomaly at C6-7. IMPRESSION: MULTILEVEL SPONDYLOSIS. NO FRACTURE SEEN. THERE IS NOTED A DEGENERATIVE FIRST DEGREE L4-5 SPONDYLOLIS THESIS. NO EVIDENCE OF ANY SIGNIFICANT THORACIC BONY SPINAL STENOSIS. Degenerative first-degree L45 spondylolisthesis. There is moderately severe bony spinal stenosis at L 4-5 due to subluxation and facet arthropathy.
== END | disposition home or self-care (01) ==
LOC: RADCTMAIN 17:01
PROVIDERS: ATTEND Internal Medicine
DX: M48.061 Spinal stenosis, lumbar region without neurogenic claudication (principal); M43.16 Spondylolisthesis, lumbar region; M47.816 Spondylosis without myelopathy or radiculopathy, lumbar region; M47.814 Spondylosis without myelopathy or radiculopathy, thoracic region; M46.86 Other specified inflammatory spondylopathies, lumbar region
CPT/HCPCS: 72128; 72131

== ENCOUNTER 2017-06-26 10:04 | Inpatient (IN) | payer MEDICARE ==
--- NOTE | 2017-06-26 10:46 | ED ---
General Adult HPI - General Chief complaint: Weakness Stated complaint: lethargic, nausea, consipation Time Seen by Provider: 06/26/17 10:26 Source: patient, RN notes reviewed, old records reviewed Mode of arrival: wheelchair Limitations: no limitations - History of Present Illness Initial comments: 72-year-old male presents with multiple complaints. Patient has had ongoing bilateral lower extremity pain and weakness which is chronic in nature. He does take morphine for chronic pain. He states this has not been helping. He also has history of constipation secondary to his opiate use. He states he has not had a bowel movement several days. He began developing some nausea and vomiting today. He also reports generalized weakness. No fever, he does report subjective chills. Denies chest pain. Patient also states he has some intermittent shortness of breath. Currently he is not short of breath. Denies headache. Denies focal weakness. Denies any trauma or injury. Patient also complains of suicidal ideation, he currently does not have a plan. - Related Data Home Medications Medication Instructions Recorded Confirmed Lisinopril [Prinivil] 5 mg PO BID 03/08/14 06/26/17 Baclofen [Lioresal] 10 mg PO HS 05/29/16 06/26/17 Digoxin 250 mcg PO DAILY 06/28/16 06/26/17 Docusate [Colace] 100 mg PO BID 06/26/17 06/26/17 Hydrochlorothiazide [Hydrodiuril] 25 mg PO BID 06/26/17 06/26/17 Lactulose 20 gm PO DAILY PRN 06/26/17 06/26/17 Morphine Sulfate [Ms Contin] 30 mg PO Q8H 06/26/17 06/26/17 Pantoprazole Sodium [Protonix] 40 mg PO DAILY 06/26/17 06/26/17 Allergies Allergy/AdvReac Type Severity Reaction Status Date / Time No Known Allergies Allergy Verified 06/26/17 10:42 Review of Systems ROS Statement: Those systems with pertinent positive or pertinent negative responses have been documented in the HPI. ROS Other: All systems not noted in ROS Statement are negative. 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; colostomy,states "pacemaker disconnected but not take out" Past Anesthesia/Blood Transfusion Reactions: No Reported Reaction Type of Cardiac Device: Permanent Pacemaker Device Placement Date:: 2007 Past Psychological History: No Psychological Hx Reported Smoking Status: Current every day smoker Past Alcohol Use History: None Reported Past Drug Use History: None Reported - Past Family History Mother Family Medical History: Cancer Father Additional Family Medical History / Comment(s): diverticulitis General Exam Limitations: no limitations General appearance: alert, in no apparent distress, cachectic Head exam: Present: atraumatic, normocephalic Eye exam: Present: normal appearance, PERRL Neck exam: Present: normal inspection. Absent: tenderness, meningismus Respiratory exam: Present: normal lung sounds bilaterally, wheezes (Trace wheeze , good air entry). Absent: respiratory distress Cardiovascular Exam: Present: regular rate, normal rhythm GI/Abdominal exam: Present: soft. Absent: distended, tenderness Extremities exam: Present: normal capillary refill. Absent: pedal edema, calf tenderness Neurological exam: Present: alert, oriented X3, CN II-XII intact. Absent: motor sensory deficit Psychiatric exam: Present: suicidal ideation Skin exam: Present: warm, dry, intact. Absent: cyanosis, diaphoretic Course Vital Signs 06/26/17 06/26/17 10:15 11:45 Temperature 97.1 F L Pulse Rate 105 H 95 Respiratory 18 22 Rate Blood Pressure 128/70 159/72 O2 Sat by Pulse 99 100 Oximetry EKG Findings - EKG Comments: EKG Findings:: EKG shows normal sinus rhythm, rightward axis, left bundle branch block, ventricular rate 63, AZ interval 182, QRS 178, QTC 444, there is ST segment elevation in the precordial leads in the presence of a left bundle branch block. This does not appear significantly changed from EKG obtained in 2017. Medical Decision Making - Medical Decision Making 72-year-old male presenting with multiple complaints including constipation, bilateral lower extremity pain. And suicidal ideation. Laboratory studies revealed mild elevated white blood cell count 12.7, hemoglobin 15.0, creatinine 1.2 BMP is 3360. Troponin mildly elevated 0.037. X-ray of the abdomen shows large stool burning. Chest x-ray negative for effusion or pulmonary edema. EKG is looked showing left bundle, patient has no chest pain, no shortness of breath. EKG appears unchanged from one year ago. Given the multiple complaints of abnormal laboratory studies he will be admitted for stroke cardiac enzymes, cardiology consult and psychiatric consult for suicidal ideation. - Lab Data Result diagrams: 06/26/17 11:05 06/26/17 11:05 Lab Results 06/26/17 06/26/17 06/26/17 Range/Units 10:39 11:05 11:05 WBC 12.7 H (3.8-10.6) k/uL RBC 4.70 (4.30-5.90) m/uL Hgb 15.0 (13.0-17.5) gm/dL Hct 47.3 (39.0-53.0) % MCV 100.5 H (80.0-100.0) fL MCH 32.0 (25.0-35.0) pg MCHC 31.8 (31.0-37.0) g/dL RDW 12.4 (11.5-15.5) % Plt Count 294 (150-450) k/uL Neutrophils % 86 % Lymphocytes % 9 % Monocytes % 3 % Eosinophils % 1 % Basophils % 0 % Neutrophils # 10.9 H (1.3-7.7) k/uL Lymphocytes # 1.1 (1.0-4.8) k/uL Monocytes # 0.4 (0-1.0) k/uL Eosinophils # 0.1 (0-0.7) k/uL Basophils # 0.1 (0-0.2) k/uL PT (9.0-12.0) sec INR (<1.2) APTT (22.0-30.0) sec Sodium (137-145) mmol/L Potassium (3.5-5.1) mmol/L Chloride (98-107) mmol/L Carbon Dioxide (22-30) mmol/L Anion Gap mmol/L BUN (9-20) mg/dL Creatinine (0.66-1.25) mg/dL Est GFR (MDRD) Af Amer (>60 ml/min/1.73 sqM) Est GFR (MDRD) Non-Af (>60 ml/min/1.73 sqM) Glucose (74-99) mg/dL Plasma Lactic Acid Sonu 1.9 (0.7-2.0) mmol/L Calcium (8.4-10.2) mg/dL Magnesium (1.6-2.3) mg/dL Total Bilirubin (0.2-1.3) mg/dL AST (17-59) U/L ALT (21-72) U/L Alkaline Phosphatase (38-126) U/L Total Creatine Kinase 35 L (55-170) U/L CK-MB (CK-2) 1.6 (0.0-2.4) ng/mL CK-MB (CK-2) Rel Index 4.6 Troponin I 0.037 H* (0.000-0.034) ng/mL NT-Pro-B Natriuret Pep pg/mL Total Protein (6.3-8.2) g/dL Albumin (3.5-5.0) g/dL 06/26/17 06/26/17 06/26/17 Range/Units 11:05 11:05 11:05 WBC (3.8-10.6) k/uL RBC (4.30-5.90) m/uL Hgb (13.0-17.5) gm/dL Hct (39.0-53.0) % MCV (80.0-100.0) fL MCH (25.0-35.0) pg MCHC (31.0-37.0) g/dL RDW (11.5-15.5) % Plt Count (150-450) k/uL Neutrophils % % Lymphocytes % % Monocytes % % Eosinophils % % Basophils % % Neutrophils # (1.3-7.7) k/uL Lymphocytes # (1.0-4.8) k/uL Monocytes # (0-1.0) k/uL Eosinophils # (0-0.7) k/uL Basophils # (0-0.2) k/uL PT 10.3 (9.0-12.0) sec INR 1.1 (<1.2) APTT 23.8 (22.0-30.0) sec Sodium 143 (137-145) mmol/L Potassium 4.3 (3.5-5.1) mmol/L Chloride 103 (98-107) mmol/L Carbon Dioxide 26 (22-30) mmol/L Anion Gap 14 mmol/L BUN 25 H (9-20) mg/dL Creatinine 1.20 (0.66-1.25) mg/dL Est GFR (MDRD) Af Amer >60 (>60 ml/min/1.73 sqM) Est GFR (MDRD) Non-Af 60 (>60 ml/min/1.73 sqM) Glucose 129 H (74-99) mg/dL Plasma Lactic Acid Sonu (0.7-2.0) mmol/L Calcium 10.3 H (8.4-10.2) mg/dL Magnesium 1.9 (1.6-2.3) mg/dL Total Bilirubin 0.5 (0.2-1.3) mg/dL AST 17 (17-59) U/L ALT 7 L (21-72) U/L Alkaline Phosphatase 117 (38-126) U/L Total Creatine Kinase (55-170) U/L CK-MB (CK-2) (0.0-2.4) ng/mL CK-MB (CK-2) Rel Index Troponin I (0.000-0.034) ng/mL NT-Pro-B Natriuret Pep 3360 pg/mL Total Protein 7.6 (6.3-8.2) g/dL Albumin 4.5 (3.5-5.0) g/dL Disposition Clinical Impression: Chronic back pain, Elevated troponin, Suicidal ideation Disposition: ADMITTED IP TO THIS HOSP Condition: Stable Referrals: Koko Pat MD [Primary Care Provider] - 1-2 days Time of Disposition: 13:10 Decision to Admit Reason: Admit from EC Decision Date: 06/26/17 Decision Time: 13:10
[2017-06-26 11:24] LABS: Basophils # (A) 0.1 k/uL (0-0.2); Basophils % (A) 0 %; Eosinophils # (A) 0.1 k/uL (0-0.7); Eosinophils % (A) 1 %; HCT 47.3 % (39.0-53.0); Lymphocytes # (A) 1.1 k/uL (1.0-4.8); Lymphocytes % (A) 9 %; MCHC 31.8 g/dL (31.0-37.0); MCV 100.5 fL (80.0-100.0); Mean Platelet Volume 7.4; Monocytes # (A) 0.4 k/uL (0-1.0); Monocytes % (A) 3 %; Neutrophils # (A) 10.9 k/uL (1.3-7.7); Neutrophils % (A) 86 %; Platelet Count 294 k/uL (150-450); RDW 12.4 % (11.5-15.5); WBC 12.7 k/uL (3.8-10.6)
--- NOTE | 2017-06-26 11:38 | XR ---
EXAMINATION TYPE: XR chest 2V DATE OF EXAM: 06/26/2017 COMPARISON: 06/29/2016 HISTORY: 72-year-old male with weakness TECHNIQUE: PA and lateral views FINDINGS: Heart normal size. Atherosclerotic arch calcifications. Chilaiditi syndrome redemonstrated. Left ante rior chest wall AICD generator with right atrial, right ventricular, and coronary sinus leads. No con solidation or pleural effusion seen. IMPRESSION: Chronic changes without acute cardiopulmonary process.
--- NOTE | 2017-06-26 11:42 | XR ---
EXAMINATION TYPE: XR KUB DATE OF EXAM: 06/26/2017 CLINICAL DATA: 72-year-old male weakness, lethargic, constipation, PHH COMPARISON: None FINDINGS: Lung bases are clear. No evidence for free intraperitoneal air. A few small upper and mid abdominal air-fluid levels are present. No dilated small bowel loops. Howev er, there is moderate to large stool burden with air extending distally into the rectum. 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 Degenerated levoconvex scoliosis and end-stage degenerative change at the left hip. Pelvic phlebolith on the left. IMPRESSION: 1. Moderate to large stool burden. 2.No evidence of bowel obstruction or free intraperitoneal air. 3. A few small air-fluid levels in the upper to mid abdomen are nonspecific and could represent a mil d regional ileus or enteritis.
[2017-06-26 11:44] LABS: ALT 7 U/L (21-72); AST 17 U/L (17-59); Albumin 4.5 g/dL (3.5-5.0); Alkaline Phosphatase 117 U/L (38-126); Anion Gap 14 mmol/L; Blood Urea Nitrogen 25 mg/dL (9-20); Calcium 10.3 mg/dL (8.4-10.2); Carbon Dioxide 26 mmol/L (22-30); Chloride 103 mmol/L (98-107); Glucose 129 mg/dL (74-99); Magnesium 1.9 mg/dL (1.6-2.3); Potassium 4.3 mmol/L (3.5-5.1); Sodium 143 mmol/L (137-145); Total Bilirubin 0.5 mg/dL (0.2-1.3); Total Protein 7.6 g/dL (6.3-8.2)
[2017-06-26] MEDS ORDERED: MORPHINE SULFATE 4 MG/ML SYRINGE IVP STA (11:51)
[2017-06-26 11:59] LABS: Creatine Kinase MB 1.6 ng/mL (0.0-2.4); INR 1.1 (<1.2); Partial Thromboplastin Time 23.8 sec (22.0-30.0); Prothrombin Time 10.3 sec (9.0-12.0)
[2017-06-26 12:03] LABS: Troponin I 0.037 ng/mL (0.000-0.034)
[2017-06-26] MEDS ORDERED: FUROSEMIDE 10 MG/ML 4 ML VIAL IV STA (12:53)
[2017-06-26] MEDS ORDERED: ASPIRIN 325 MG TAB PO STA (12:53)
[2017-06-26] MEDS ORDERED: MAGNESIUM CITRATE 296 ML BOTTLE PO ONE (13:10)
[2017-06-26] MEDS ORDERED: HYDROmorphone 0.5 MG/0.5 ML SYRINGE IVP PRN (13:11)
[2017-06-26] MEDS ORDERED: NALOXONE 0.4 MG/ML 1 ML VIAL IV PRN (13:11)
[2017-06-26] MEDS ORDERED: LACTULOSE 20 GM/30 ML CUP PO PRN (13:12)
--- NOTE | 2017-06-26 15:08 | P.CRDCN ---
History of Present Illness Consult date: 06/26/17 Requesting physician: Koko Pat Reason for Consult (text): elevated troponin Chief complaint: constipation History of present illness: This is a pleasant 72-year-old gentleman with history of hypertension, chronic tobacco use, recently quit, hypertension and history of nonischemic cardiomyopathy with last known ejection fraction of 20-25% and colon cancer with colostomy and subsequent reversal. He follows with Dr. Naranjo in the office however has not been seen is 2015. Presented to the emergency department mostly with complaints of constipation and abdominal discomfort. Patient has chronic back and leg pain for which she is on narcotics at home. He has not had a bowel movement in several days. He denies complaints of chest discomfort however does have a productive cough. We were asked to see the patient in consultation for elevated troponin at 0.037. Other laboratory values are reviewed and showed a NT pro BNP of 3360, BUN of 25 and creatinine of 1.2. White blood cell count is elevated at 12.7. EKG showed sinus rhythm with a left bundle branch block, chronic. Chest x-ray showed chronic changes without acute cardiopulmonary process. Apparently while in the emergency department, the patient verbalized some suicidal ideation as well. In speaking with the patient, he verbalizes feeling sad up and tired of dealing with chronic pain and need for narcotics. Patient is currently being supervised by a staff member. Past Medical History Past Medical History: Atrial Fibrillation, Heart Failure, COPD, GERD/Reflux, Osteoarthritis (OA) Additional Past Medical History / Comment(s): CHF, cardiomyopathy, chronic back and bilateral lower extremity pain and weakness, arthritis multiple joints, constipation d/t opiods, diverticulitis with bowel resection/colostomy then colostomy reversal, colon polyps, sepsis after colostomy reversal. History of Any Multi-Drug Resistant Organisms: None Reported Past Surgical History: AICD, Bowel Resection, Heart Catheterization Additional Past Surgical History / Comment(s): BiV ICD but pt states it was not firing properly so wires were disconnected, bowel resection d/t diverticular disease per pt and had colostomy/reversal of colostomy, colonoscopy/polypectomy- benign, TURP, Past Anesthesia/Blood Transfusion Reactions: No Reported Reaction Type of Cardiac Device: AICD Device Placement Date:: 2007 Smoking Status: Former smoker - Past Family History Mother Family Medical History: Cancer Additional Family Medical History / Comment(s): Mother had breast cancer. She lived to be 94 yrs old. Father Additional Family Medical History / Comment(s): diverticulitis Medications and Allergies Home Medications Medication Instructions Recorded Confirmed Type Lisinopril [Prinivil] 5 mg PO BID 03/08/14 06/26/17 History Baclofen [Lioresal] 10 mg PO HS 05/29/16 06/26/17 History Digoxin 250 mcg PO DAILY 06/28/16 06/26/17 History Docusate [Colace] 100 mg PO BID 06/26/17 06/26/17 History Hydrochlorothiazide [Hydrodiuril] 25 mg PO BID 06/26/17 06/26/17 History Lactulose 20 gm PO DAILY PRN 06/26/17 06/26/17 History Morphine Sulfate [Ms Contin] 30 mg PO Q8H 06/26/17 06/26/17 History Pantoprazole Sodium [Protonix] 40 mg PO DAILY 06/26/17 06/26/17 History Allergies Allergy/AdvReac Type Severity Reaction Status Date / Time No Known Allergies Allergy Verified 06/26/17 10:42 Physical Exam Vitals: Vital Signs Temp Pulse Resp BP Pulse Ox 06/26/17 13:27 97.9 F 06/26/17 13:00 73 22 155/72 99 06/26/17 11:45 95 22 159/72 100 06/26/17 10:15 97.1 F L 105 H 18 128/70 99 Intake and Output 06/25/17 06/26/17 06/26/17 22:59 06:59 14:59 Other: Weight 65.771 kg Patient Weight 06/27/17 06:59 Weight 65.771 kg PHYSICAL EXAMINATION: HEENT: Head is atraumatic, normocephalic. Pupils equal, round. Neck is supple. There is no elevated jugular venous pressure. HEART EXAMINATION: Heart sounds regular, S1 and S2 with a holosystolic murmur at the apex. CHEST EXAMINATION: Lungs reveal expiratory wheezing throughout. No chest wall tenderness is noted on palpation or with deep breathing. ABDOMEN: Mildly distended, nontender. Bowel sounds are heard. No organomegaly noted. EXTREMITIES: 2+ peripheral pulses with no evidence of peripheral edema and no calf tenderness noted. NEUROLOGIC patient is awake, alert and oriented x3. . Results 06/26/17 11:05 06/26/17 11:05 Cardiac Enzymes 06/26/17 06/26/17 Range/Units 11:05 11:05 AST 17 (17-59) U/L CK-MB (CK-2) 1.6 (0.0-2.4) ng/mL Troponin I 0.037 H* (0.000-0.034) ng/mL Coagulation 06/26/17 Range/Units 11:05 PT 10.3 (9.0-12.0) sec APTT 23.8 (22.0-30.0) sec CBC 06/26/17 Range/Units 11:05 WBC 12.7 H (3.8-10.6) k/uL RBC 4.70 (4.30-5.90) m/uL Hgb 15.0 (13.0-17.5) gm/dL Hct 47.3 (39.0-53.0) % Plt Count 294 (150-450) k/uL Comprehensive Metabolic Panel 06/26/17 Range/Units 11:05 Sodium 143 (137-145) mmol/L Potassium 4.3 (3.5-5.1) mmol/L Chloride 103 (98-107) mmol/L Carbon Dioxide 26 (22-30) mmol/L BUN 25 H (9-20) mg/dL Creatinine 1.20 (0.66-1.25) mg/dL Glucose 129 H (74-99) mg/dL Calcium 10.3 H (8.4-10.2) mg/dL AST 17 (17-59) U/L ALT 7 L (21-72) U/L Alkaline Phosphatase 117 (38-126) U/L Total Protein 7.6 (6.3-8.2) g/dL Albumin 4.5 (3.5-5.0) g/dL Current Medications Generic Name Dose Route Start Last Admin Trade Name Freq PRN Reason Stop Dose Admin Baclofen 10 mg 06/26/17 21:00 Lioresal PO HS ROSAS Digoxin 250 mcg 06/27/17 09:00 Lanoxin PO DAILY ROSAS Hydrochlorothiazide 25 mg 06/26/17 21:00 Hydrodiuril PO BID ROSAS Hydromorphone HCl 0.5 mg 06/26/17 13:11 Dilaudid IVP Q3HR PRN Moderate Pain Hydromorphone HCl 1 mg 06/26/17 13:11 Dilaudid IVP Q3HR PRN Severe Pain Lactulose 20 gm 06/26/17 13:12 Cephulac PO DAILY PRN Constipation Lisinopril 5 mg 06/26/17 21:00 Zestril PO BID ROSAS Naloxone HCl 0.2 mg 06/26/17 13:11 Narcan IV Q2M PRN Opioid Reversal Intake and Output 06/25/17 06/26/17 06/26/17 22:59 06:59 14:59 Other: Weight 65.771 kg Patient Weight 06/27/17 06:59 Weight 65.771 kg 06/26/17 11:05 06/26/17 11:05 EKG Interpretations (text) Sinus rhythm with a left bundle branch block Assessment and Plan Assessment: #1 opioid related constipation #2 depression with suicidal ideation, no plan #3 nonischemic cardiomyopathy, refused AICD generator change #4 hypertension #5 hyperlipidemia #6 nicotine dependence, quit approximately one month ago #7 mild troponin leak #8 elevated NT proBNP without signs of overt failure Plan: From cardiology perspective, we will obtain a 2-D echo with Doppler. We will follow the troponin trend. We will provide further recommendations accordingly depending on trend of troponin and patient's clinical course. LADLE WATCHER note has been reviewed, I agree with a documented findings and plan of care. Patient was seen and examined.
[2017-06-26 15:17] LABS: Appearance,Urine Clear (Clear); Bilirubin,Urine Negative (Negative); Blood,Urine Negative (Negative); Color,Urine Light Yellow; Glucose,Urine (UA) Negative (Negative); Ketones,Urine Negative (Negative); Leukocyte Esterase,Urine Negative (Negative); Nitrite,Urine Negative (Negative); PH, Urine 5.5 (5.0-8.0); Protein,Urine Negative (Negative); Specific Gravity,Urine 1.005 (1.001-1.035); Urobilinogen,Urine <2.0 mg/dL (<2.0)
[2017-06-26] MEDS: HYDROmorphone 0.5 MG/0.5 ML SYRINGE IVP PRN ×3 (16:31→22:22)
[2017-06-26] MEDS: FUROSEMIDE 20 MG TAB PO SCH (16:31)
--- NOTE | 2017-06-26 17:20 | P.CN ---
Psychiatric Consult - . Consult date: 06/26/17 Consult:: 06/26/17 17:08 Identification: Patient is a 72-year-old male presented to the hospital with complaints of constipation. Reason for Consult: Consultation was requested for suicidal ideation History of Present Illness: Patient's chart was reviewed, he was seen in his room and no family members were present. Patient states that he has been on morphine for the last couple of months states that he had constipation with all of his pain medications but notices that he is been more irritable. Patient reports that he answered a question of if he had had suicidal thoughts and he states that he has but has no plan or intent to act. Patient states he is tired of being in pain. States that at the age of 27 he began having back pain that increased over the years. He states that he's never had surgery on his back and has been told he has degenerative disc disease. He states the weakness in his legs began about 10 years ago but is been worse over the last 5 years. States that prior to that 10 years he was walking well without difficulty. Patient states that he has been diagnosed with stage IV colon cancer 2 years ago and had his colostomy reversed in June 2016. Patient states that difficulties with constipation from the pain medications, his back pain have made him increasingly irritable. Patient does state that in the 1980s he was treated by primary care physician in [place] with Prozac and Zoloft which she stopped but he is unable to tell me what the symptoms were at that time the medications were effective. Patient states that he is never had a suicide attempt in the past. Patient states that he responded to the question about if he has had suicidal thoughts and he states that he has as his pain is increased and he has had increasing medical problems, but states that he has never had any intent to act and has never thought of a plan and does not want to . Patient states his mother a year ago and at several months ago his daughter's of an overdose. He states these 2 incidents have made him sad, has crying spells when discussing this and reports that he is unable to sleep because of the pain. Said the pain makes him more irritable and when he is irritable he feels more frustrated. Past Psychiatric History: Patient states that primary care doctors treated him with Prozac and Zoloft unknown doses in the mid to late 80s for depression but he is unable to tell me what his symptoms were at that time. He has no prior history of psychiatric inpatient treatment Past Medical/Surgical History: Patient has hypertension, cardiomyopathy, bilateral lower extremity weakness and pain, degenerative disc disease, colon cancer status post resection and colostomy reversal. Atrial fibrillation. Patient states he has had 2 myocardial infarctions. Patient has a defibrillator implanted in 2002 but states it is not currently working and he is working on having it removed. Social History: Patient was born and raised in [place] both of his parents is are his mother recently at the age of 94 year ago. He has a brother and a sister. The patient completed high school and was drafted into the [employer] and was in the [employer] and served in [employer]. Patient after his honorable discharge began working and states that he retired in 2002. 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 Patient has been twice his first marriage lasted for 6 years he was and is currently been for 36 years. He has 2 daughters. One daughter is currently living with him, her is the one who of an overdose. Substance Use History: Patient states that he used alcohol when he was younger but quit over 30 years ago. He states that he uses marijuana occasionally now to increase his appetite and denies any other drug use or any IV drug use. Mental Status: Appearance/Attitude: Patient is lying in a hospital bed, in no acute distress made good eye contact and was cooperative Behavior: Patient did not display any psychomotor agitation or retardation. Speech/Language: Patient's speech is spontaneous and of normal volume and rhythm and he is coherent. Thought Process: Patient is goal-directed, is no evidence of loose associations or flight of ideas. Thought Content: Patient denies any auditory or visual hallucinations no delusions or paranoid ideation were elicited. Patient reports he has been more irritable recently, is grieving the of his son-in-law from an overdose several months ago as well as the of his mother one year ago. Patient states he is not sleeping well and his appetite is poor. States that he has been having difficulties with constipation from his pain medications, and reports continued pain in his back and legs that he is relieved moderately well with pain medication. Suicidal/Homicidal Ideation: Patient states he has had suicidal thoughts in the past but has never made a plan and has no intent to act and denies any prior suicide attempts. Patient denies any current suicidal or homicidal ideation Sensorium/Cognition: Patient is alert and oriented to person, place, and time and his recent and remote memory are grossly intact. Mood/Affect: Patient's mood is sad, slightly irritable and his affect is tearful at times Insight/Judgment: Patient's insight and judgment are intact. Assessment: Patient reports chronic pain from his back for a number of years now in his legs with weakness in both legs and difficulty ambulating as well as a history of stage IV colon cancer. Patient states that with the use of pain medications his pain is reduced but he has become increasingly irritable. He states that he is also dealing with constipation and poor sleep. Patient was treated in the remote past with antidepressants by his primary care physician but can't tell me little details about his symptoms or response at that time. He does admit that he is irritable and depressed, his son-in-law of an overdose several months ago and his mother one year ago. Patient states that he is thought of suicide but has never thought of a plan and has no intent to act states that he does not want to at this time. 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 Patient and I reviewed the use and side effects of the medication. Patient is not currently suicidal and I will discontinue the sitter. Patient does not require inpatient psychiatric treatment. Will follow while patient is in the hospital to assess his response to the Lexapro. Patient reported poor sleep and I declined to prescribe any sleeping medications, he has tried melatonin in the past with minimal results.
[2017-06-26 17:22] LABS: Creatine Kinase MB 1.8 ng/mL (0.0-2.4)
[2017-06-26 17:26] LABS: Troponin I 0.041 ng/mL (0.000-0.034)
[2017-06-26] MEDS: HYDROCHLOROTHIAZIDE 25 MG TAB PO SCH (20:30)
[2017-06-26] MEDS: BACLOFEN 10 MG TAB PO SCH (20:30)
[2017-06-26] MEDS: LISINOPRIL 5 MG TAB PO SCH (20:30)
[2017-06-27 00:27] LABS: Creatine Kinase MB 1.6 ng/mL (0.0-2.4)
[2017-06-27 00:31] LABS: Troponin I 0.043 ng/mL (0.000-0.034)
[2017-06-27] MEDS: HYDROmorphone 0.5 MG/0.5 ML SYRINGE IVP PRN ×4 (01:31→13:41)
[2017-06-27] MEDS: LISINOPRIL 5 MG TAB PO SCH ×2 (08:10→20:43)
[2017-06-27] MEDS: HYDROCHLOROTHIAZIDE 25 MG TAB PO SCH ×2 (08:10→20:43)
[2017-06-27] MEDS: FUROSEMIDE 20 MG TAB PO SCH (08:10)
[2017-06-27] MEDS: DIGOXIN 250 MCG TAB PO SCH (08:10)
[2017-06-27] MEDS: ESCITALOPRAM 5 MG TAB PO SCH (08:10)
[2017-06-27] MEDS ORDERED: ONDANSETRON 4 MG/2 ML VIAL IVP PRN (08:59)
[2017-06-27] MEDS: DOCUSATE 100 MG CAP PO SCH ×2 (09:42→20:43)
--- NOTE | 2017-06-27 10:25 | P.HPIM ---
History of Present Illness H&P Date: 06/27/17 Chief Complaint: Abdominal pain and constipation This is a 72-year-old male with a known past medical history of hypertension, chronic tobacco use and quit about a month ago, nonischemic cardiomyopathy with an EF of 20-25%, colon cancer with colostomy and reversal. He has chronic back and leg pain which she is takes morphine at home. He has chronic opiate constipation. Patient presents to the emergency room with complaints of abdominal pain constipation with no bowel movement for about 3-4 days. Also having generalized weakness. KUB x-ray shows moderate to large stool burden. No evidence of bowel obstruction or free intraperitoneal air. A few small air fluid levels in the upper mid abdomen are nonspecific and could represent a mild regional ileus or enteritis. Chest x-ray reveals chronic changes without acute cardiopulmonary process. EKG shows normal sinus rhythm with a right bundle branch block. Apparently in the ER he had mentioned some suicidal ideation and psychiatry was consulted. He did have elevated troponin of 0.043 and cardiology was consulted. Patient denies any chest pain. BNP elevated at 3360 with no CHF findings on chest x-ray. Patient did receive a dose of IV Lasix in the emergency room and placed on Lasix 20 mg daily by cardiology. They felt that there were no overt signs of failure. Patient denies any vomiting has had some nausea. Denies any fever or chills or sweats. Does admit to an occasional cough. Denies any burning with urination or difficulty urinating. Patient gives and negative citrate in the emergency room and was able to have multiple bowel movements yesterday evening. But he is still complaining of diffuse abdominal pain. Review of Systems Please refer to HPI otherwise unremarkable Past Medical History Past Medical History: Atrial Fibrillation, Heart Failure, COPD, GERD/Reflux, Osteoarthritis (OA) Additional Past Medical History / Comment(s): CHF, cardiomyopathy, chronic back and bilateral lower extremity pain and weakness, arthritis multiple joints, constipation d/t opiods, diverticulitis with bowel resection/colostomy then colostomy reversal, colon polyps, sepsis after colostomy reversal. History of Any Multi-Drug Resistant Organisms: None Reported Past Surgical History: AICD, Bowel Resection, Heart Catheterization Additional Past Surgical History / Comment(s): BiV ICD but pt states it was not firing properly so wires were disconnected, bowel resection d/t diverticular disease per pt and had colostomy/reversal of colostomy, colonoscopy/polypectomy- benign, TURP, Past Anesthesia/Blood Transfusion Reactions: No Reported Reaction Type of Cardiac Device: AICD Device Placement Date:: 2007 Smoking Status: Former smoker - Past Family History Mother Family Medical History: Cancer Additional Family Medical History / Comment(s): Mother had breast cancer. She lived to be 94 yrs old. Father Additional Family Medical History / Comment(s): diverticulitis Medications and Allergies Home Medications Medication Instructions Recorded Confirmed Type Lisinopril [Prinivil] 5 mg PO BID 03/08/14 06/26/17 History Baclofen [Lioresal] 10 mg PO HS 05/29/16 06/26/17 History Digoxin 250 mcg PO DAILY 06/28/16 06/26/17 History Docusate [Colace] 100 mg PO BID 06/26/17 06/26/17 History Hydrochlorothiazide [Hydrodiuril] 25 mg PO BID 06/26/17 06/26/17 History Lactulose 20 gm PO DAILY PRN 06/26/17 06/26/17 History Morphine Sulfate [Ms Contin] 30 mg PO Q8H 06/26/17 06/26/17 History Pantoprazole Sodium [Protonix] 40 mg PO DAILY 06/26/17 06/26/17 History Allergies Allergy/AdvReac Type Severity Reaction Status Date / Time No Known Allergies Allergy Verified 06/26/17 10:42 Physical Exam Vitals: Vital Signs Temp Pulse Pulse Resp BP BP BP 06/27/17 08:00 96.8 F L 102 H 18 112/68 06/27/17 03:57 97.2 F L 74 18 123/61 06/26/17 23:29 97 F L 96 18 114/71 06/26/17 20:00 96.9 F L 83 18 125/69 06/26/17 19:50 06/26/17 19:06 120 H 16 105/52 06/26/17 16:00 96.1 F L 75 16 130/65 06/26/17 15:25 96.7 F L 76 16 150/70 06/26/17 14:15 96.3 F L 79 16 182/76 06/26/17 13:27 97.9 F 06/26/17 13:00 73 22 155/72 02/21/18 11:45 95 22 159/72 02/21/18 10:15 97.1 F L 105 H 18 128/70 Pulse Ox 06/27/17 08:00 100 06/27/17 03:57 96 06/26/17 23:29 98 06/26/17 20:00 98 06/26/17 19:50 97 06/26/17 19:06 95 06/26/17 16:00 96 06/26/17 15:25 97 06/26/17 14:15 98 06/26/17 13:27 06/26/17 13:00 99 06/26/17 11:45 100 06/26/17 10:15 99 Intake and Output 06/26/17 06/27/17 06/27/17 22:59 06:59 14:59 Intake Total 90 Output Total 100 Balance -10 Intake: Oral 90 Output: Urine 100 Other: Voiding Method Urinal Urinal Urinal # Voids 1 4 # Bowel Movements 1 1 Weight 60.5 kg Head normocephalic Neck supple Lungs clear to auscultation bilaterally no wheezing or crackles Heart regular rate and rhythm S1-S2, no rub or gallop Abdomen is soft diffuse abdominal tenderness nondistended positive bowel sounds no hepatosplenomegaly Extremities no edema Neuro alert and orientated to 3 Results CBC & Chem 7: 06/26/17 11:05 06/26/17 11:05 Labs: Abnormal Lab Results - Last 24 Hours (Table) 06/26/17 06/26/17 06/26/17 Range/Units 11:05 11:05 11:05 WBC 12.7 H (3.8-10.6) k/uL MCV 100.5 H (80.0-100.0) fL Neutrophils # 10.9 H (1.3-7.7) k/uL BUN 25 H (9-20) mg/dL Glucose 129 H (74-99) mg/dL Calcium 10.3 H (8.4-10.2) mg/dL ALT 7 L (21-72) U/L Total Creatine Kinase 35 L (55-170) U/L Troponin I 0.037 H* (0.000-0.034) ng/mL 06/26/17 06/26/17 Range/Units 16:30 23:17 WBC (3.8-10.6) k/uL MCV (80.0-100.0) fL Neutrophils # (1.3-7.7) k/uL BUN (9-20) mg/dL Glucose (74-99) mg/dL Calcium (8.4-10.2) mg/dL ALT (21-72) U/L Total Creatine Kinase 38 L 42 L (55-170) U/L Troponin I 0.041 H* 0.043 H* (0.000-0.034) ng/mL Thrombosis Risk Factor Assmnt - Choose All That Apply Any of the Below Risk Factors Present?: Yes Each Factor Represents 1 point: Abnormal pulmonary function (COPD) Other Risk Factors: Yes Each Risk Factor Represents 2 Points: Age 61-74 years Other congenital or acquired thrombophilia - If yes, enter type in comment: No Thrombosis Risk Factor Assessment Total Risk Factor Score: 3 Thrombosis Risk Factor Assessment Level: Moderate Risk Assessment and Plan Assessment: 1. Abdominal pain with opiate-induced constipation: KUB shows moderate to large amount of stool burden and small air-fluid levels in the upper to mid abdomen which could represent a mild regional ileus or enteritis. Patient was given negative citrate yesterday in the ER and has had multiple stools. Patient requesting consult with dietitian for appropriate diet to help with his constipation. Continue Colace and lactulose. We'll add MiraLAX. Urinalysis negative 2. Elevated troponin: No chest pain. EKG showing a normal sinus rhythm with left bundle branch block. Followed by cardiology. Echo ordered per cardiology 3. 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 No evidence of suicidal ideation. Evaluated by psychiatry. They've added Lexapro 5 mg daily 4. Chronic back pain and lower extremity pain. On oral morphine at home. Followed by pain service in the outpatient setting 5. History of nonischemic cardiomyopathy had refused AICD in the past 6. Essential hypertension 7. History of colon cancer status post bowel resection with colostomy reversal GI prophylaxis Protonix and DVT prophylaxis Lovenox Time with Patient: Greater than 30 (Greater than 50% of the total time spent in counseling and coordination of care.I performed an examination of the patient and discussed their management with the physician Warp Knitting Machine Operator. I have reviewed the Physician Warp Knitting Machine Operator's notes and agree with the documented findings and plan of care)
[2017-06-27] MEDS: ENOXAPARIN 40 MG/0.4 ML SYRINGE SQ SCH (10:58)
[2017-06-27 11:18] LABS: Basophils % (A) 0 %; Eosinophils # (A) 0.1 k/uL (0-0.7); Eosinophils % (A) 1 %; HCT 48.6 % (39.0-53.0); HGB 16.5 gm/dL (13.0-17.5); Lymphocytes # (A) 1.2 k/uL (1.0-4.8); Lymphocytes % (A) 8 %; MCH 32.4 pg (25.0-35.0); Mean Platelet Volume 8.1; Monocytes # (A) 0.6 k/uL (0-1.0); Monocytes % (A) 4 %; Neutrophils # (A) 12.8 k/uL (1.3-7.7); Neutrophils % (A) 86 %; Platelet Count 332 k/uL (150-450); RDW 12.4 % (11.5-15.5); WBC 14.9 k/uL (3.8-10.6)
[2017-06-27 11:20] LABS: MCV 95.3 fL (80.0-100.0)
[2017-06-27 11:44] LABS: ALT 15 U/L (21-72); AST 32 U/L (17-59); Albumin 5.1 g/dL (3.5-5.0); Alkaline Phosphatase 128 U/L (38-126); Anion Gap 19 mmol/L; Blood Urea Nitrogen 33 mg/dL (9-20); Calcium 10.6 mg/dL (8.4-10.2); Carbon Dioxide 25 mmol/L (22-30); Chloride 100 mmol/L (98-107); Glucose 116 mg/dL (74-99); Sodium 144 mmol/L (137-145); Total Bilirubin 1.2 mg/dL (0.2-1.3); Total Protein 8.7 g/dL (6.3-8.2)
--- NOTE | 2017-06-27 11:46 | P.PN ---
Subjective Progress Note Date: 06/27/17 This is a pleasant 72-year-old gentleman with history of hypertension, chronic tobacco use, recently quit, hypertension and history of nonischemic cardiomyopathy with last known ejection fraction of 20-25% and colon cancer with colostomy and subsequent reversal. He follows with Dr. Naranjo in the office however has not been seen is 2015. Presented to the emergency department mostly with complaints of constipation and abdominal discomfort. Patient has chronic back and leg pain for which she is on narcotics at home. He has not had a bowel movement in several days. He denies complaints of chest discomfort however does have a productive cough. We were asked to see the patient in consultation for elevated troponin at 0.037. Other laboratory values are reviewed and showed a NT pro BNP of 3360, BUN of 25 and creatinine of 1.2. White blood cell count is elevated at 12.7. EKG showed sinus rhythm with a left bundle branch block, chronic. Chest x-ray showed chronic changes without acute cardiopulmonary process. Apparently while in the emergency department, the patient verbalized some suicidal ideation as well. In speaking with the patient, he verbalizes feeling sad up and tired of dealing with chronic pain and need for narcotics. Patient is currently being supervised by a staff member. 06/27/2017 Patient was seen and examined this morning, states he did not sleep well last night at all. Complaining of significant constipation although he states he did move his bowels several times through the night last night. Patient also states that he had his AICD turned off approximately 5 years ago. He is also not currently on a beta estephania, we will add Coreg 3.125 mg by mouth twice a day to his medication regime. Echocardiogram with Doppler study remains pending.blood pressure 122/60 with a heart rate in the 100s. Objective - Vital Signs Vital signs: Vital Signs Temp 96.8 F L 06/27/17 08:00 Pulse 102 H 06/27/17 08:00 Resp 18 06/27/17 08:00 BP 112/68 06/27/17 08:00 Pulse Ox 100 06/27/17 08:00 Intake & Output 06/26/17 06/27/17 06/27/17 18:59 06:59 18:59 Intake Total 90 Output Total 100 Balance -10 Weight 65.771 kg 60.5 kg 60.5 kg Intake: Oral 90 Output: Urine 100 Other: Voiding Method Urinal Urinal Urinal # Voids 1 4 # Bowel Movements 1 1 - Exam PHYSICAL EXAMINATION: HEENT: Head is atraumatic, normocephalic. Pupils equal, round. Neck is supple. There is no elevated jugular venous pressure. HEART EXAMINATION: Heart sounds regular, S1 and S2 with a holosystolic murmur at the apex. CHEST EXAMINATION: Lungs reveal expiratory wheezing throughout. No chest wall tenderness is noted on palpation or with deep breathing. ABDOMEN: Mildly distended, nontender. Bowel sounds are heard. No organomegaly noted. EXTREMITIES: 2+ peripheral pulses with no evidence of peripheral edema and no calf tenderness noted. NEUROLOGIC patient is awake, alert and oriented x3. - Labs CBC & Chem 7: 06/27/17 10:47 06/26/17 11:05 Labs: Abnormal Lab Results - Last 24 Hours (Table) 06/26/17 06/26/17 06/26/17 Range/Units 11:05 11:05 16:30 WBC (3.8-10.6) k/uL Neutrophils # (1.3-7.7) k/uL BUN 25 H (9-20) mg/dL Glucose 129 H (74-99) mg/dL Calcium 10.3 H (8.4-10.2) mg/dL ALT 7 L (21-72) U/L Total Creatine Kinase 35 L 38 L (55-170) U/L Troponin I 0.037 H* 0.041 H* (0.000-0.034) ng/mL 06/26/17 06/27/17 Range/Units 23:17 10:47 WBC 14.9 H (3.8-10.6) k/uL Neutrophils # 12.8 H (1.3-7.7) k/uL BUN (9-20) mg/dL Glucose (74-99) mg/dL Calcium (8.4-10.2) mg/dL ALT (21-72) U/L Total Creatine Kinase 42 L (55-170) U/L Troponin I 0.043 H* (0.000-0.034) ng/mL Assessment and Plan Plan: Assessment: #1 opioid related constipation #2 depression with suicidal ideation, no plan #3 nonischemic cardiomyopathy, refused AICD generator change #4 hypertension #5 hyperlipidemia #6 nicotine dependence, quit approximately one month ago #7 mild troponin leak #8 elevated NT proBNP without signs of overt failure plan According to the patient, he did have his AICD turned off approximately 5 years ago. He has a known nonischemic cardiomyopathy, and has not followed up in the office for several years. We will add Coreg 3.125 mg twice a day to his medication regime. We will review his echocardiogram with Doppler study, follow the patient along with you now on an as-needed basis only, please don't hesitate to call with any questions. DNP note has been reviewed, I agree with a documented findings and plan of care. Patient was seen and examined.
[2017-06-27 11:47] LABS: Potassium 4.1 mmol/L (3.5-5.1)
[2017-06-27] MEDS: CARVEDILOL 3.125 MG TAB PO SCH ×2 (12:16→16:54)
[2017-06-27] MEDS: MORPHINE SULFATE ER 30 MG TABLET PO SCH ×2 (13:03→20:44)
[2017-06-27] MEDS ORDERED: HYDROmorphone 2 MG TAB PO PRN (14:00)
[2017-06-27] MEDS: HYDROmorphone 4 MG TABLET PO PRN ×2 (16:10→18:45)
[2017-06-27] MEDS: BACLOFEN 10 MG TAB PO SCH (20:43)
[2017-06-27] MEDS ORDERED: POLYETHYLENE GLYCOL 3350 17 GM POWD.PACK PO SCH (21:00)
[2017-06-28] MEDS: HYDROmorphone 4 MG TABLET PO PRN ×5 (00:09→16:53)
[2017-06-28] MEDS: MORPHINE SULFATE ER 30 MG TABLET PO SCH ×2 (04:46→13:12)
[2017-06-28] MEDS: CARVEDILOL 3.125 MG TAB PO SCH (04:47)
[2017-06-28 06:49] LABS: Basophils # (A) 0.1 k/uL (0-0.2); Basophils % (A) 0 %; Eosinophils # (A) 0.2 k/uL (0-0.7); Eosinophils % (A) 1 %; HCT 47.1 % (39.0-53.0); Lymphocytes # (A) 1.4 k/uL (1.0-4.8); Lymphocytes % (A) 9 %; MCH 33.1 pg (25.0-35.0); MCV 97.3 fL (80.0-100.0); Mean Platelet Volume 7.3; Monocytes # (A) 0.7 k/uL (0-1.0); Monocytes % (A) 4 %; Neutrophils # (A) 13.5 k/uL (1.3-7.7); Neutrophils % (A) 85 %; Platelet Count 325 k/uL (150-450); RBC 4.84 m/uL (4.30-5.90); RDW 12.5 % (11.5-15.5); WBC 15.9 k/uL (3.8-10.6)
[2017-06-28 07:07] LABS: ALT 14 U/L (21-72); AST 22 U/L (17-59); Albumin 4.5 g/dL (3.5-5.0); Alkaline Phosphatase 129 U/L (38-126); Anion Gap 14 mmol/L; Blood Urea Nitrogen 38 mg/dL (9-20); Calcium 9.9 mg/dL (8.4-10.2); Carbon Dioxide 24 mmol/L (22-30); Chloride 102 mmol/L (98-107); Glucose 113 mg/dL (74-99); Sodium 140 mmol/L (137-145); Total Protein 7.5 g/dL (6.3-8.2)
[2017-06-28 07:08] LABS: Potassium 3.7 mmol/L (3.5-5.1)
--- NOTE | 2017-06-28 07:27 | XR ---
EXAMINATION TYPE: XR abdomen 2V DATE OF EXAM: 06/28/2017 COMPARISON: 06/26/2017 HISTORY: Pain, constipation TECHNIQUE: Two view abdominal series FINDINGS: The osseous structures are intact. The bowel gas pattern is nonspecific. Cardiac leads are noted. De generative change spine. Tiny calcification right upper quadrant nonspecific. Calcifications in pelvi s likely vascular. Severe arthropathy of the hips greater on the left. IMPRESSION: 1. Nonspecific abdomen.
[2017-06-28] MEDS ORDERED: PANTOPRAZOLE 40 MG TABLET PO SCH (07:30)
[2017-06-28] MEDS: HYDROCHLOROTHIAZIDE 25 MG TAB PO SCH (09:26)
[2017-06-28] MEDS: LISINOPRIL 5 MG TAB PO SCH (09:26)
[2017-06-28] MEDS: DIGOXIN 250 MCG TAB PO SCH (09:27)
[2017-06-28] MEDS: DOCUSATE 100 MG CAP PO SCH (09:28)
[2017-06-28] MEDS: ENOXAPARIN 40 MG/0.4 ML SYRINGE SQ SCH (09:28)
[2017-06-28] MEDS: ESCITALOPRAM 5 MG TAB PO SCH (09:31)
[2017-06-28 10:00] VITALS: RESP 18
--- NOTE | 2017-06-28 13:27 | P.GSCN ---
History of Present Illness Consult date: 06/28/17 Reason for Consult: Abdominal pain History of present illness: 72-year-old male seen and examined at the request of the attending for surgical eval for abdominal pain patient presented to the emergency room with a chief complaint of abdominal pain with constipation no bowel movement for 4 days. Patient stated that he has been having issues with chronic constipation. Probably related to his opiates that he has been using for his chronic back pain as well as morphine . Patient stated that he did have a large bowel movement this morning as well as last night and the abdominal pain has resolved. Patient did have a KUB x-ray in the emergency room showed a moderate to large stool burden was no evidence of a bowel obstruction no free air. Patient states he often gets abdominal pain with this constipation. Patient is stating that he has chronic lower back pain x-ray of the abdomen obtained this morning 2 view no acute findings Patient's past medical history chronic back pain, debilitated, chronic constipation due to opiates. Nonischemic cardiomyopathy with last known EF of 20-25%, colon cancer Past surgical history ICD which has been turned off approximately 5 years ago, bowel resection with an ostomy in an ostomy reversal Review of Systems Essentially unremarkable except as mentioned in the present illness Past Medical History Past Medical History: Atrial Fibrillation, Heart Failure, COPD, GERD/Reflux, Osteoarthritis (OA) Additional Past Medical History / Comment(s): CHF, cardiomyopathy, chronic back and bilateral lower extremity pain and weakness, arthritis multiple joints, constipation d/t opiods, diverticulitis with bowel resection/colostomy then colostomy reversal, colon polyps, sepsis after colostomy reversal. History of Any Multi-Drug Resistant Organisms: None Reported Past Surgical History: AICD, Bowel Resection, Heart Catheterization Additional Past Surgical History / Comment(s): BiV ICD but pt states it was not firing properly so wires were disconnected, bowel resection d/t diverticular disease per pt and had colostomy/reversal of colostomy, colonoscopy/polypectomy- benign, TURP, Past Anesthesia/Blood Transfusion Reactions: No Reported Reaction Type of Cardiac Device: AICD Device Placement Date:: 2007 Smoking Status: Former smoker - Past Family History Mother Family Medical History: Cancer Additional Family Medical History / Comment(s): Mother had breast cancer. She lived to be 94 yrs old. Father Additional Family Medical History / Comment(s): diverticulitis Medications and Allergies Home Medications Medication Instructions Recorded Confirmed Type Lisinopril [Prinivil] 5 mg PO BID 03/08/14 06/26/17 History Baclofen [Lioresal] 10 mg PO HS 05/29/16 06/26/17 History Digoxin 250 mcg PO DAILY 06/28/16 06/26/17 History Docusate [Colace] 100 mg PO BID 06/26/17 06/26/17 History Hydrochlorothiazide [Hydrodiuril] 25 mg PO BID 06/26/17 06/26/17 History Lactulose 20 gm PO DAILY PRN 06/26/17 06/26/17 History Morphine Sulfate [Ms Contin] 30 mg PO Q8H 06/26/17 06/26/17 History Pantoprazole Sodium [Protonix] 40 mg PO DAILY 06/26/17 06/26/17 History Allergies Allergy/AdvReac Type Severity Reaction Status Date / Time No Known Allergies Allergy Verified 06/26/17 10:42 Surgical - Exam Vital Signs Temp Pulse Resp BP Pulse Ox 97.1 F L 105 H 18 128/70 99 06/26/17 10:15 06/26/17 10:15 06/26/17 10:15 06/26/17 10:15 06/26/17 10:15 GENERAL APPEARANCE: p 72-year-old male looking older than stated age alert, oriented, in no acute distress. VITAL SIGNS: Reviewed HEENT: Head is normocephalic and atraumatic. Pupils are equal and reactive. The nares are patent. Oropharynx is clear without lesions. NECK: Supple without lymphadenopathy. Traches midline. HEART: S1, S2. Regular rate and rhythm. no murmur noted LUNGS: No crackles or wheezes are heard. diminished at the bases ABDOMEN: Soft, nontender, nondistended with good bowel sounds. No peritoneal signs. No palpable organomegaly or masses. no facial grimacing with palpitation to the abdominal wall bowel tones present states had a large bowel movement this morning states abdominal pain resolved no nausea no vomiting EXTREMITIES: Normal skin color and turgor. No cyanosis, rash, ulceration, clubbing or edema. Radial pedal pulses are 2/4 bilaterally. NEUROLOGICAL: No focal deficits. Strength and sensation are grossly intact. Results - Labs 06/28/17 06:40 06/28/17 06:40 Abnormal Lab Results - Last 24 Hours (Table) 06/28/17 06/28/17 Range/Units 06:40 06:40 WBC 15.9 H (3.8-10.6) k/uL Neutrophils # 13.5 H (1.3-7.7) k/uL BUN 38 H (9-20) mg/dL Creatinine 1.30 H (0.66-1.25) mg/dL Glucose 113 H (74-99) mg/dL ALT 14 L (21-72) U/L Alkaline Phosphatase 129 H (38-126) U/L Diabetes panel 06/28/17 Range/Units 06:40 Sodium 140 (137-145) mmol/L Potassium 3.7 (3.5-5.1) mmol/L Chloride 102 (98-107) mmol/L Carbon Dioxide 24 (22-30) mmol/L BUN 38 H (9-20) mg/dL Creatinine 1.30 H (0.66-1.25) mg/dL Glucose 113 H (74-99) mg/dL Calcium 9.9 (8.4-10.2) mg/dL AST 22 (17-59) U/L ALT 14 L (21-72) U/L Alkaline Phosphatase 129 H (38-126) U/L Total Protein 7.5 (6.3-8.2) g/dL Albumin 4.5 (3.5-5.0) g/dL Calcium panel 06/28/17 Range/Units 06:40 Calcium 9.9 (8.4-10.2) mg/dL Albumin 4.5 (3.5-5.0) g/dL Pituitary panel 06/28/17 Range/Units 06:40 Sodium 140 (137-145) mmol/L Potassium 3.7 (3.5-5.1) mmol/L Chloride 102 (98-107) mmol/L Carbon Dioxide 24 (22-30) mmol/L BUN 38 H (9-20) mg/dL Creatinine 1.30 H (0.66-1.25) mg/dL Glucose 113 H (74-99) mg/dL Calcium 9.9 (8.4-10.2) mg/dL Adrenal panel 06/28/17 Range/Units 06:40 Sodium 140 (137-145) mmol/L Potassium 3.7 (3.5-5.1) mmol/L Chloride 102 (98-107) mmol/L Carbon Dioxide 24 (22-30) mmol/L BUN 38 H (9-20) mg/dL Creatinine 1.30 H (0.66-1.25) mg/dL Glucose 113 H (74-99) mg/dL Calcium 9.9 (8.4-10.2) mg/dL Total Bilirubin 1.0 (0.2-1.3) mg/dL AST 22 (17-59) U/L ALT 14 L (21-72) U/L Alkaline Phosphatase 129 H (38-126) U/L Total Protein 7.5 (6.3-8.2) g/dL Albumin 4.5 (3.5-5.0) g/dL Assessment and Plan Assessment: Impression Present on admission abdominal pain suspect due to constipation Chronic constipation related to chronic opiate use Chronic back pain with chronic opiate use Nonischemic cardiomyopathy refused AICD generator change Chronic nicotine dependency quit one month prior Opiate related constipation Plan No evidence of an acute surgical abdomen Continue with the bowel stimulant program Will follow with you with further surgical recommendations pending clinical course DVT and GI prophylaxis Home meds as appropriate Surgical consultation note dictated for dr green The above impression and plan of care have been discussed and directed by signing physician. Hannah Huddleston nurse practitioner acting as scribe for signing physician.
[2017-06-28 13:53] VITALS: BMI 20.8
--- NOTE | 2017-06-28 14:25 | P.DS ---
Providers Date of admission: 06/26/17 13:11 Expected date of discharge: 06/28/17 Attending physician: Koko Pat Consults: 06/26/17 13:11 Consult Physician Urgent Consulting Provider: Ct Belle Consult Reason/Comments: trop elevation Do you want consulting provider notified?: Yes 06/26/17 13:12 Consult Physician Routine Consulting Provider: Elizabeth Bautista Consult Reason/Comments: Suicidal ideation Do you want consulting provider notified?: Yes 06/27/17 12:46 Consult Physician Routine Consulting Provider: Marlon Cortez Consult Reason/Comments: abdominal, ileus Do you want consulting provider notified?: Yes Primary care physician: Koko Pat [facility] Course: Discharge Diagnosis: 1. Abdominal pain with opiate-induced constipation: KUB shows moderate to large amount of stool burden and small air-fluid levels in the upper to mid abdomen which could represent a mild regional ileus or enteritis. Patient was given negative citrate yesterday in the ER and has had multiple stools. Patient requesting consult with dietitian for appropriate diet to help with his constipation. Continue Colace and lactulose. We'll add MiraLAX. Urinalysis negative. Repeat abdominal x-ray shows nonspecific abdomen. Patient having bowel movements. Abdominal pain controlled. 2. Mild troponin leak: No chest pain. EKG showing a normal sinus rhythm with left bundle branch block. Seen by cardiology. They have signed off. No evidence of NE. 3. 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 No evidence of suicidal ideation. Evaluated by psychiatry. They've added Lexapro 5 mg daily 4. Chronic back pain and lower extremity pain. On oral morphine at home. Followed by pain service in the outpatient setting 5. History of nonischemic cardiomyopathy had refused AICD in the past 6. Essential hypertension 7. History of colon cancer status post bowel resection with colostomy reversal 8. Acute kidney injury: Creatinine 1.30 likely related to diuretics. Lasix discontinued. Hospital course This is a 72-year-old male with a known past medical history of hypertension, chronic tobacco use and quit about a month ago, nonischemic cardiomyopathy with an EF of 20-25%, colon cancer with colostomy and reversal. He has chronic back and leg pain which she is takes morphine at home. He has chronic opiate constipation. Patient presents to the emergency room with complaints of abdominal pain constipation with no bowel movement for about 3-4 days. Also having generalized weakness. KUB x-ray shows moderate to large stool burden. No evidence of bowel obstruction or free intraperitoneal air. A few small air fluid levels in the upper mid abdomen are nonspecific and could represent a mild regional ileus or enteritis. Chest x-ray reveals chronic changes without acute cardiopulmonary process. EKG shows normal sinus rhythm with a right bundle branch block. Apparently in the ER he had mentioned some suicidal ideation and psychiatry was consulted. He did have elevated troponin of 0.043 and cardiology was consulted. Patient denies any chest pain. BNP elevated at 3360 with no CHF findings on chest x-ray. Patient did receive a dose of IV Lasix in the emergency room and placed on Lasix 20 mg daily by cardiology. They felt that there were no overt signs of failure. Patient denies any vomiting has had some nausea. Denies any fever or chills or sweats. Does admit to an occasional cough. Denies any burning with urination or difficulty urinating. Patient gives and negative citrate in the emergency room and was able to have multiple bowel movements yesterday evening. But he is still complaining of diffuse abdominal pain. Patient was able to have multiple bowel movements. Constipation has resolved. Abdominal x-ray had shown improvement in the nonspecific abdomen. He was seen by surgical servicesurgical intervention required. MiraLAX will be added to his home regimen of medications he is continue with the lactulose as needed as well as stool softener. Patient is to continue also 4 with his morphine for pain control. Patient was seen by cardiology they had added Lasix to his regimen of medications. However he did end up having some acute kidney injury with a creatinine of 1.30 therefore the Lasix was discontinued. Patient is requesting to be discharged home initially was requesting hospice. However patient does not meet hospice criteria. At this point we will be discharging him home with home care for palliative care. And patient can be transitioned to hospice if needed. Patient understands this. He'll follow up with Dr. Pat in 1 week in the office. I performed an examination of the patient and discussed their management with the physician Laboratory Veterinarian. I have reviewed the Physician Laboratory Veterinarian's notes and agree with the documented findings and plan of care Patient Condition at Discharge: Stable Plan - Discharge Summary Discharge Rx Participant: No New Discharge Prescriptions: New Carvedilol [Coreg] 3.125 mg PO BID-W/MEALS #60 tab Escitalopram [Lexapro] 5 mg PO DAILY #30 tab Polyethylene Glycol 3350 [Miralax] 17 gm PO HS #30 powd.pack Continue Lisinopril [Prinivil] 5 mg PO BID Baclofen [Lioresal] 10 mg PO HS Digoxin 250 mcg PO DAILY Morphine Sulfate [Ms Contin] 30 mg PO Q8H Docusate [Colace] 100 mg PO BID Pantoprazole Sodium [Protonix] 40 mg PO DAILY Hydrochlorothiazide [Hydrodiuril] 25 mg PO BID Lactulose 20 gm PO DAILY PRN PRN Reason: Constipation Discharge Medication List Lisinopril [Prinivil] 5 mg PO BID 03/08/14 [History] Baclofen [Lioresal] 10 mg PO HS 05/29/16 [History] Digoxin 250 mcg PO DAILY 06/28/16 [History] Docusate [Colace] 100 mg PO BID 06/26/17 [History] Hydrochlorothiazide [Hydrodiuril] 25 mg PO BID 06/26/17 [History] Lactulose 20 gm PO DAILY PRN 06/26/17 [History] Morphine Sulfate [Ms Contin] 30 mg PO Q8H 06/26/17 [History] Pantoprazole Sodium [Protonix] 40 mg PO DAILY 06/26/17 [History] Carvedilol [Coreg] 3.125 mg PO BID-W/MEALS #60 tab 06/28/17 [Rx] Escitalopram [Lexapro] 5 mg PO DAILY #30 tab 06/28/17 [Rx] Polyethylene Glycol 3350 [Miralax] 17 gm PO HS #30 powd.pack 06/28/17 [Rx] Follow up Appointment(s)/Referral(s): Koko Pat MD [Primary Care Provider] - 1 Week Activity/Diet/Wound Care/Special Instructions: Palliative Home Care Diet: cardiac Activity: as tolerated Discharge Disposition: HOME WITH HOME HEALTH SERVICES
--- NOTE | 2017-06-28 14:38 | CONS ---
CONSULTATION DATE OF CONSULTATION: 06/28/2016 PURPOSE OF CONSULTATION: Evaluate for suicidal ideation and depression. INTERVAL HISTORY: The patient is seen in cross-coverage for Dr. Hernandes who consulted on the patient 06/26. It is noted that the patient was started on Lexapro 5 mg a day. When I talked to the patient today, he indicated that from a psychiatric standpoint he felt things were fairly stable. He continues to have some abdominal pain that was relieved that study so far have been negative. He does have severe cardiomyopathy as well. He says that he feels his mood is in a reasonable point and that he would not have expectations of feeling much better than he is. His main focus is on some of his physical complaints, namely the abdominal pain which he seems to have both on the left and right side. He says he sleeps fair at night. He gets woken up by the noise in the area. He says that he feels once he gets home. he will be more comfortable and anticipates that should help his mood. He acknowledges that he did have suicide thoughts, though he relates that more to frustration and irritability relating to the physical complaints he was having coming into the hospital. He did acknowledge treatment for depression back in the 1980s and use of SSRIs at some other point in his in the past. He has not had problems with the start of Lexapro. When I talked to the patient, he gave good eye contact. He was relaxed. He was spontaneous and somewhat interactive. He was a little reserved in his manner. He had a quiet mood. He did not seem distressed. ASSESSMENT: I will continue the current diagnosis and treatment plan. It would be appropriate to look at titrating up on his Lexapro to 10 mg and then possibly 20 mg over the next 1-2 weeks. It does sound as if the patient may be discharged to home fairly soon and this could be if followed up on an outpatient basis. At this point, the patient appeared to be doing fairly well from a psychiatric standpoint. He had some fair insight about his situation. He had motivation towards addressing some of his health issues. There was no indication for thoughts of harm to himself or others . Pf it is felt that he needs further psychiatric followup, please contact the psychiatric unit. Dr. Hernandes will return to service on Saturday. LEWIS / EDELN: [id number] /
[2017-06-28 17:08] VITALS: BP 128/68; PULSE 91; TEMP 98
--- NOTE | 2017-07-03 13:12 | ECHOF ---
Referral Reason:known cardiomyopathy, elevated troponin MEASUREMENTS -------- HEIGHT: 177.8 cm WEIGHT: 65.8 kg BP: 155/72 IVSd: 1.4 cm (0.6 - 1.1) LVIDd: 5.5 cm (3.9 - 5.3) LVPWd: 1.4 cm (0.6 - 1.1) IVSs: 1.6 cm LVIDs: 5.1 cm LVPWs: 1.5 cm LAESV Index (A-L): 21.33 ml/m Ao Diam: 2.5 cm (2.0 - 3.7) AV Cusp: 1.6 cm (1.5 - 2.6) LA Diam: 2.6 cm (2.7 - 3.8) MV E Logan: 1.26 m/s MV DecT: 254 ms MV A Logan: 1.12 m/s MV E/A Ratio: 1.12 AR PHT: 603 ms RAP: 5.00 mmHg RVSP: 12.74 mmHg FINDINGS -------- Resting tachycardia (HR>100bpm). This was a technically adequate study. Test terminated at patients request. The left ventricular size is normal. There is moderate concentric left ventricular hypertrophy. T here is severe global hypokinesis of LV . Overall left ventricular systolic function is severely im paired with, an EF < 20%. The right ventricle is normal in size and function. Normal LA size by volume 22+/-6 ml/m2. The right atrium is normal in size. Electronic pacemaker lead seen in the right ventricular cavity. There is mild aortic valve sclerosis. There is mild aortic regurgitation. The aortic pressure kimmie f-time by doppler is 603ms. There is no evidence of aortic stenosis. The mitral valve leaflets are mildly thickened. Mild mitral annular calcification present. Mild m itral regurgitation is present. Mild tricuspid regurgitation present. Right ventricular systolic pressure is normal at < 35 mmHg. There is no evidence of pulmonary hypertension. The pulmonic valve was not well visualized. The aortic root size is normal. IVC Not well visulized. There is no pericardial effusion. CONCLUSIONS -------- 1. Resting tachycardia (HR>100bpm). 2. This was a technically adequate study. 3. Test terminated at patients request. 4. The left ventricular size is normal. 5. There is moderate concentric left ventricular hypertrophy. 6. There is severe global hypokinesis of LV . 7. Overall left ventricular systolic function is severely impaired with, an EF < 20%. 8. Normal LA size by volume 22+/-6 ml/m2. 9. Electronic pacemaker lead seen in the right ventricular cavity. 10. There is mild aortic valve sclerosis. 11. There is mild aortic regurgitation. 12. The mitral valve leaflets are mildly thickened. 13. Mild mitral annular calcification present. 14. Mild mitral regurgitation is present. 15. Mild tricuspid regurgitation present. 16. Right ventricular systolic pressure is normal at < 35 mmHg. 17. There is no evidence of pulmonary hypertension. 18. The pulmonic valve was not well visualized. 19. The aortic root size is normal. 20. IVC Not well visulized. 21. There is no pericardial effusion. EMPLOYMENT TRAINING SPECIALIST: Ronni Arciniega RDCS
== END 2017-06-28 18:40 | disposition home health service (06) | DRG 392 ==
LOC: EC 10:04 → 6SEL 13:11
PROVIDERS: ADMIT Internal Medicine; ATTEND Internal Medicine
DX: K59.03 Drug induced constipation (principal); N17.9 Acute kidney failure, unspecified; I42.9 Cardiomyopathy, unspecified; I11.0 Hypertensive heart disease with heart failure; I48.91 Unspecified atrial fibrillation; I50.9 Heart failure, unspecified; R45.851 Suicidal ideations; I45.2 Bifascicular block; F32.9 Major depressive disorder, single episode, unspecified; T40.2X5A Adverse effect of other opioids, initial encounter; G89.29 Other chronic pain; J44.9 Chronic obstructive pulmonary disease, unspecified; K21.9 Gastro-esophageal reflux disease without esophagitis; E78.5 Hyperlipidemia, unspecified; Z51.5 Encounter for palliative care; T50.2X5A Adverse effect of carbonic-anhydrase inhibitors, benzothiadiazides and other diuretics, initial encounter; M79.605 Pain in left leg; M79.604 Pain in right leg; M19.90 Unspecified osteoarthritis, unspecified site; Z90.49 Acquired absence of other specified parts of digestive tract; Z85.038 Personal history of other malignant neoplasm of large intestine; Z79.899 Other long term (current) drug therapy; Z79.891 Long term (current) use of opiate analgesic; Z80.3 Family history of malignant neoplasm of breast; Z87.891 Personal history of nicotine dependence; Z95.810 Presence of automatic (implantable) cardiac defibrillator; Z71.3 Dietary counseling and surveillance; Z86.010 Personal history of colon polyps
CPT/HCPCS: 36415; 71046; 74018; 74019; 80053; 81003; 82550; 82553; 83605; 83735; 83880; 84484; 85025; 85610; 85730; 93005; 93306; 94760; 96374; 96375; 99285

== ENCOUNTER 2017-11-14 16:07 | Inpatient (IN) | payer MEDICARE ==
[2017-11-14] MEDS ORDERED: SODIUM CHLORIDE 0.9% 1,000 ML IV STA (16:57)
[2017-11-14] MEDS ORDERED: ONDANSETRON 4 MG/2 ML VIAL IVP STA (16:57)
[2017-11-14] MEDS ORDERED: MORPHINE SULFATE 2 MG/ML SYRINGE IVP STA (16:58)
--- NOTE | 2017-11-14 17:02 | ED ---
General Adult HPI - General Source: patient, RN notes reviewed Mode of arrival: ambulatory Limitations: no limitations <Jon Mayer - Last Filed: 11/14/17 16:59> <Vinh Funk - Last Filed: 11/14/17 20:50> - General Chief complaint: Abdominal Pain Stated complaint: abdominal pain/has colon cancer Time Seen by Provider: 11/14/17 16:49 - History of Present Illness Initial comments: Patient is a 72-year-old male presenting to the emergency room today with chief complaint of abdominal pain over the last 2 weeks. Patient does admit to symptoms of nausea vomiting and diarrhea. Patient admits to pain located on the left side of the abdomen. Rates it a 02/12. States it is sharp and crampy in nature. Patient does admit he's had similar symptoms in the past. Patient denies any other complaints at this time. Patient denies any recent fever, chills, shortness of breath, chest pain, back pain, abdominal pain, numbness or tingling, dysuria or hematuria, headaches or visual changes, or any other complaints. (Jon Mayer) - Related Data Home Medications Medication Instructions Recorded Confirmed Lisinopril [Prinivil] 5 mg PO BID 03/08/14 11/14/17 Baclofen [Lioresal] 10 mg PO HS 05/29/16 11/14/17 Digoxin 250 mcg PO DAILY 06/28/16 11/14/17 Hydrochlorothiazide [Hydrodiuril] 25 mg PO BID 06/26/17 11/14/17 Lactulose 20 gm PO DAILY PRN 06/26/17 11/14/17 Morphine Sulfate [Ms Contin] 30 mg PO Q8H 06/26/17 11/14/17 Carvedilol [Coreg] 3.125 mg PO DAILY 11/14/17 11/14/17 Previous Rx's Medication Instructions Recorded Escitalopram [Lexapro] 5 mg PO DAILY #30 tab 06/28/17 Polyethylene Glycol 3350 [Miralax] 17 gm PO HS #30 powd.pack 06/28/17 Allergies Allergy/AdvReac Type Severity Reaction Status Date / Time No Known Allergies Allergy Verified 11/14/17 20:34 Review of Systems ROS Other: All systems not noted in ROS Statement are negative. <Jon Mayer - Last Filed: 11/14/17 16:59> ROS Other: All systems not noted in ROS Statement are negative. <Vinh Funk - Last Filed: 11/14/17 20:50> ROS Statement: Those systems with pertinent positive or pertinent negative responses have been documented in the HPI. Past Medical History Past Medical History: Atrial Fibrillation, Heart Failure, COPD, GERD/Reflux, Osteoarthritis (OA) Additional Past Medical History / Comment(s): CHF, cardiomyopathy, chronic back and bilateral lower extremity pain and weakness, arthritis multiple joints, constipation d/t opiods, diverticulitis with bowel resection/colostomy then colostomy reversal, colon polyps, sepsis after colostomy reversal. History of Any Multi-Drug Resistant Organisms: None Reported Past Surgical History: AICD, Bowel Resection, Heart Catheterization Additional Past Surgical History / Comment(s): BiV ICD but pt states it was not firing properly so wires were disconnected, bowel resection d/t diverticular disease per pt and had colostomy/reversal of colostomy, colonoscopy/polypectomy- benign, TURP, Past Anesthesia/Blood Transfusion Reactions: No Reported Reaction Type of Cardiac Device: AICD Device Placement Date:: 2007 Past Psychological History: No Psychological Hx Reported Smoking Status: Former smoker Past Alcohol Use History: None Reported Past Drug Use History: None Reported - Past Family History Mother Family Medical History: Cancer Additional Family Medical History / Comment(s): Mother had breast cancer. She lived to be 94 yrs old. Father Additional Family Medical History / Comment(s): diverticulitis <Jon Mayer - Last Filed: 11/14/17 16:59> General Exam Limitations: no limitations <Jon Mayer - Last Filed: 11/14/17 16:59> <Vinh Funk - Last Filed: 11/14/17 20:50> - General Exam Comments Initial Comments: General: The patient is awake and alert, in no distress. Eye: Pupils are equal, round and reactive to light, extra-ocular movements are intact. No nystagmus. There is normal conjunctiva bilaterally. No signs of icterus. Ears, nose, mouth and throat: There are moist mucous membranes and no oral lesions. Neck: The neck is supple, there is no tenderness or JVD. Cardiovascular: There is a regular rate and rhythm. No murmur, rub or gallop is appreciated. Respiratory: Lungs are clear to auscultation, respirations are non-labored, breath sounds are equal. No wheezes, stridor, rales, or rhonchi. Gastrointestinal: Patient does have tenderness left lower quadrant. No rebound , guarding. Musculoskeletal: Normal ROM, no tenderness. Strength 5/5. Sensation intact. Pulses equal bilaterally 2+. Neurological: A&O x 3. CN II-XII intact, There are no obvious motor or sensory deficits. Coordination appears grossly intact. Speech is normal. Skin: Skin is warm and dry and no rashes or lesions are noted. Psychiatric: Cooperative, appropriate mood & affect, normal judgment. (Jon Mayer) Vital Signs 11/14/17 11/14/17 16:44 20:27 Temperature 97.7 F 98.8 F Pulse Rate 107 H 82 Respiratory 18 18 Rate Blood Pressure 103/70 143/64 O2 Sat by Pulse 100 98 Oximetry Medical Decision Making <Jon Mayer - Last Filed: 11/14/17 16:59> - Lab Data Result diagrams: 11/14/17 17:35 11/14/17 17:35 <Vinh Funk - Last Filed: 11/14/17 20:50> - Medical Decision Making CT scan shows distended colon but no obstruction. (Vinh Funk) - Lab Data Lab Results 11/14/17 11/14/17 Range/Units 17:35 17:35 WBC 13.1 H (3.8-10.6) k/uL RBC 5.38 (4.30-5.90) m/uL Hgb 15.9 (13.0-17.5) gm/dL Hct 48.7 (39.0-53.0) % MCV 90.5 (80.0-100.0) fL MCH 29.5 (25.0-35.0) pg MCHC 32.6 (31.0-37.0) g/dL RDW 13.9 (11.5-15.5) % Plt Count 315 (150-450) k/uL Neutrophils % 88 % Lymphocytes % 6 % Monocytes % 5 % Eosinophils % 0 % Basophils % 0 % Neutrophils # 11.6 H (1.3-7.7) k/uL Lymphocytes # 0.8 L (1.0-4.8) k/uL Monocytes # 0.6 (0-1.0) k/uL Eosinophils # 0.0 (0-0.7) k/uL Basophils # 0.0 (0-0.2) k/uL Sodium 136 L (137-145) mmol/L Potassium 3.9 (3.5-5.1) mmol/L Chloride 101 (98-107) mmol/L Carbon Dioxide 24 (22-30) mmol/L Anion Gap 11 mmol/L BUN 48 H (9-20) mg/dL Creatinine 1.10 (0.66-1.25) mg/dL Est GFR (CKD-EPI)AfAm 78 (>60 ml/min/1.73 sqM) Est GFR (CKD-EPI)NonAf 67 (>60 ml/min/1.73 sqM) Glucose 127 H (74-99) mg/dL Calcium 9.4 (8.4-10.2) mg/dL Total Bilirubin 0.9 (0.2-1.3) mg/dL AST 35 (17-59) U/L ALT 18 L (21-72) U/L Alkaline Phosphatase 100 (38-126) U/L Total Protein 7.3 (6.3-8.2) g/dL Albumin 4.3 (3.5-5.0) g/dL Amylase 40 (30-110) U/L Lipase 38 (23-300) U/L Disposition <Jon Mayer - Last Filed: 11/14/17 16:59> Time of Disposition: 20:50 <Vinh Funk - Last Filed: 11/14/17 20:50> Clinical Impression: Abdominal pain, Colon distention Disposition: ADMITTED IP TO THIS HOSP Referrals: Koko Pat MD [Primary Care Provider] - 1-2 days
[2017-11-14 18:02] LABS: Basophils % (A) 0 %; Eosinophils % (A) 0 %; HCT 48.7 % (39.0-53.0); HGB 15.9 gm/dL (13.0-17.5); Lymphocytes # (A) 0.8 k/uL (1.0-4.8); Lymphocytes % (A) 6 %; MCH 29.5 pg (25.0-35.0); MCHC 32.6 g/dL (31.0-37.0); MCV 90.5 fL (80.0-100.0); Mean Platelet Volume 7.6; Monocytes # (A) 0.6 k/uL (0-1.0); Monocytes % (A) 5 %; Neutrophils # (A) 11.6 k/uL (1.3-7.7); Neutrophils % (A) 88 %; Platelet Count 315 k/uL (150-450); RBC 5.38 m/uL (4.30-5.90); RDW 13.9 % (11.5-15.5); WBC 13.1 k/uL (3.8-10.6)
[2017-11-14 18:06] LABS: Albumin 4.3 g/dL (3.5-5.0); Calcium 9.4 mg/dL (8.4-10.2); Potassium 3.9 mmol/L (3.5-5.1); Total Bilirubin 0.9 mg/dL (0.2-1.3); Total Protein 7.3 g/dL (6.3-8.2)
--- NOTE | 2017-11-14 20:36 | CT ---
EXAMINATION TYPE: CT abdomen pelvis w con DATE OF EXAM: 11/14/2017 COMPARISON: HISTORY: Abdominal pain CT DLP: 561.1 mGycm Automated exposure control for dose reduction was used. TECHNIQUE: Helical acquisition of images was performed from the lung bases through the pelvis. CONTRAST: Performed without Oral Contrast and with IV Contrast, patient injected with 100 mL of Isovu e 300. FINDINGS: VISUALIZED LOWER THORAX: Extensive left and right coronary calcifications noted, along with cardiac p acemaker. Visualized lung bases and pleural spaces negative. LIVER/GB: No significant abnormality is appreciated. PANCREAS: No significant abnormality is seen. SPLEEN: No significant abnormality is seen. ADRENALS: No significant abnormality is seen. KIDNEYS: Innumerable bilateral renal cysts are noted, with global left renal atrophy and diminished c ontrast opacification of the left kidney when compared to the right kidney. FREE AIR: No free air is visualized. RETROPERITONEAL ADENOPATHY: None visualized REPRODUCTIVE ORGANS: No significant abnormality is seen URINARY BLADDER: No significant abnormality is seen. PELVIC ADENOPATHY: None visualized. OSSEOUS STRUCTURES: No significant abnormality is seen. BOWEL: Extensive colonic gas distention is noted, from the cecum to the sigmoid. If there is clinica l need for further evaluation, rectal contrast CT will clarify the lower half of bowel sutures. OTHER: Vasculature shows markedly advanced calcifications throughout the visualized arterial anatomy, nonaneurysmal atherosclerotic changes. IMPRESSION: COLONIC GASEOUS DISTENTION FROM THE CECUM TO THE SIGMOID. NO BOWEL OBSTRUCTION OR PNEUMATOSIS OR PNEU MOPERITONEUM. IF THERE IS NEED FOR FURTHER EVALUATION THEN RECTAL CONTRAST CT CAN BE UTILIZED. THE
[2017-11-14] MEDS ORDERED: SODIUM CHLORIDE 0.9% 1,000 ML IV ONE (20:50)
[2017-11-14 21:03] LABS: Appearance,Urine Clear (Clear); Bacteria,Urine Rare /hpf; Bilirubin,Urine Negative (Negative); Blood,Urine Negative (Negative); Color,Urine Yellow; Glucose,Urine (UA) Negative (Negative); Ketones,Urine 1+ (Negative); Leukocyte Esterase,Urine Negative (Negative); Mucus,Urine Rare /hpf; Nitrite,Urine Negative (Negative); PH, Urine 6.5 (5.0-8.0); Protein,Urine 1+ (Negative); RBC,Urine 1 /hpf (0-5); Specific Gravity,Urine 1.038 (1.001-1.035); Urobilinogen,Urine <2.0 mg/dL (<2.0); WBC,Urine 1 /hpf (0-5)
[2017-11-15] MEDS: MORPHINE SULFATE ER 30 MG TABLET PO SCH ×5 (01:10→20:01)
[2017-11-15] MEDS: BACLOFEN 10 MG TAB PO SCH ×3 (01:11→20:02)
[2017-11-15] MEDS: LISINOPRIL 5 MG TAB PO SCH ×2 (08:59→20:02)
[2017-11-15] MEDS: DIGOXIN 250 MCG TAB PO SCH (08:59)
[2017-11-15] MEDS: CARVEDILOL 3.125 MG TAB PO SCH (08:59)
[2017-11-15] MEDS: HYDROCHLOROTHIAZIDE 25 MG TAB PO SCH ×2 (08:59→20:02)
[2017-11-15] MEDS ORDERED: ESCITALOPRAM 5 MG TAB PO SCH (09:00)
--- NOTE | 2017-11-15 10:53 | P.HPIM ---
History of Present Illness H&P Date: 11/15/17 Chief Complaint: Abdominal pain This is a 72-year-old male with a known history of chronic back pain in which she takes oral morphine. He also has a history of nonischemic cardiomyopathy and his AICD was turned off, hypertension, colon cancer status post bowel resection with colostomy reversal and history of opiate-induced constipation. Patient presents to the emergency room with complaints of abdominal pain all over the abdomen. Initially in the ER report they reported vomiting and diarrhea. Patient reports that he's been feeling nauseous and constipated and has had no stools for about one week. Patient has had poor appetite. Patient is a poor historian. Computed tomography scan of the abdomen showing colonic gaseous distention from the cecum to the sigmoid. No bowel obstruction noted. Surgical consult placed. IV fluids have been ordered. Unfortunately patient has no IV access. And is a difficult IV start. Midline has been ordered. White count 13.1, BUN 48, creatinine 1.10. LFTs and amylase and lipase are normal. Patient denies any chest pain or shortness of breath. He admits to feeling hot and cold at times. No fever reported. He admits to passing gas. Denies any difficulty urinating. Review of Systems Please refer to HPI otherwise unremarkable Past Medical History Past Medical History: Atrial Fibrillation, Heart Failure, COPD, GERD/Reflux, Osteoarthritis (OA) Additional Past Medical History / Comment(s): CHF, cardiomyopathy, chronic back and bilateral lower extremity pain and weakness, arthritis multiple joints, constipation d/t opiods, diverticulitis with bowel resection/colostomy then colostomy reversal, colon polyps, sepsis after colostomy reversal.ddd History of Any Multi-Drug Resistant Organisms: None Reported Past Surgical History: AICD, Bowel Resection, Heart Catheterization Additional Past Surgical History / Comment(s): BiV ICD but pt states it was not firing properly so wires were disconnected, bowel resection d/t diverticular disease per pt and had colostomy/reversal of colostomy, colonoscopy/polypectomy- benign, TURP, Past Anesthesia/Blood Transfusion Reactions: No Reported Reaction Type of Cardiac Device: AICD Device Placement Date:: 2007 Smoking Status: Current every day smoker - Past Family History Mother Family Medical History: Cancer Additional Family Medical History / Comment(s): Mother had breast cancer. She lived to be 94 yrs old. Father Additional Family Medical History / Comment(s): diverticulitis Medications and Allergies Home Medications Medication Instructions Recorded Confirmed Type Lisinopril [Prinivil] 5 mg PO BID 03/08/14 11/14/17 History Baclofen [Lioresal] 10 mg PO HS 05/29/16 11/14/17 History Digoxin 250 mcg PO DAILY 06/28/16 11/14/17 History Hydrochlorothiazide [Hydrodiuril] 25 mg PO BID 06/26/17 11/14/17 History Lactulose 20 gm PO DAILY PRN 06/26/17 11/14/17 History Morphine Sulfate [Ms Contin] 30 mg PO Q8H 06/26/17 11/14/17 History Escitalopram [Lexapro] 5 mg PO DAILY #30 tab 06/28/17 11/14/17 Rx Polyethylene Glycol 3350 [Miralax] 17 gm PO HS #30 powd.pack 06/28/17 11/14/17 Rx Carvedilol [Coreg] 3.125 mg PO DAILY 11/14/17 11/14/17 History Allergies Allergy/AdvReac Type Severity Reaction Status Date / Time No Known Allergies Allergy Verified 11/14/17 20:34 Physical Exam Vitals: Vital Signs Temp Pulse Pulse Resp BP BP Pulse Ox 11/15/17 05:35 98.8 F 94 16 129/65 100 11/14/17 23:00 98.1 F 86 15 151/71 96 11/14/17 22:30 17 11/14/17 20:27 98.8 F 82 18 143/64 98 11/14/17 16:44 97.7 F 107 H 18 103/70 100 Intake and Output 11/14/17 11/15/17 11/15/17 22:59 06:59 14:59 Output Total 50 Balance -50 Output: Urine 50 Uretheral ([place]) 50 Other: # Voids 1 Weight 68.039 kg Head normocephalic Neck supple Lungs clear to auscultation bilaterally no wheezing or crackles Heart regular rate and rhythm S1-S2, no rub or gallop Abdomen is soft nondistended positive bowel sounds diffuse abdominal tenderness Extremities no edema Neuro alert and orientated to 3 Results CBC & Chem 7: 11/14/17 17:35 11/14/17 17:35 Labs: Abnormal Lab Results - Last 24 Hours (Table) 0711/14/17 11/14/17 Range/Units 17:35 17:35 20:45 WBC 13.1 H (3.8-10.6) k/uL Neutrophils # 11.6 H (1.3-7.7) k/uL Lymphocytes # 0.8 L (1.0-4.8) k/uL Sodium 136 L (137-145) mmol/L BUN 48 H (9-20) mg/dL Glucose 127 H (74-99) mg/dL ALT 18 L (21-72) U/L Ur Specific [place] 1.038 H (1.001-1.035) Urine Protein 1+ H (Negative) Urine Ketones 1+ H (Negative) Urine Bacteria Rare H (None) /hpf Urine Mucus Rare H (None) /hpf Thrombosis Risk Factor Assmnt - Choose All That Apply Any of the Below Risk Factors Present?: Yes Each Factor Represents 1 point: Abnormal pulmonary function (COPD) Other Risk Factors: Yes Each Risk Factor Represents 2 Points: Age 61-74 years Thrombosis Risk Factor Assessment Total Risk Factor Score: 3 Thrombosis Risk Factor Assessment Level: Moderate Risk Assessment and Plan Assessment: 1. Abdominal pain with a known history of opioid-induced constipation: Computed tomography scan of the abdomen and pelvis show colonic gaseous distention from the cecum to the sigmoid. Surgical consult placed. 2. Leukocytosis present on admission. Repeat white count, possibly reactive 3. Mild dehydration: BUN 48 . Trying to get IV access or midline placed The patient can receive IV fluids 4. Essential hypertension: Continue lisinopril, hydrochlorothiazide and Coreg 5. Chronic back pain continue oral morphine 6. History of Nonischemic cardiomyopathy patient has had his AICD turned off 7. History of colon cancer status post bowel resection with colostomy reversal 8. Depression continue Lexapro 9. One episode of paroxysmal atrial fibrillation in the past. Not on any anticoagulation. Patient takes digoxin and coreg GI prophylaxis Protonix and DVT prophylaxis SCDs until seen by the surgeon Time with Patient: Greater than 30 (Greater than 60% of the total time spent in counseling and coordination of care.I performed an examination of the patient and discussed their management with the physician Artist Scientific. I have reviewed the Physician Artist Scientific's notes and agree with the documented findings and plan of care)
[2017-11-15 11:16] LABS: Basophils % (A) 0 %; Eosinophils # (A) 0.2 k/uL (0-0.7); Eosinophils % (A) 1 %; HCT 41.5 % (39.0-53.0); HGB 14.2 gm/dL (13.0-17.5); Lymphocytes # (A) 0.8 k/uL (1.0-4.8); Lymphocytes % (A) 5 %; MCHC 34.2 g/dL (31.0-37.0); MCV 90.8 fL (80.0-100.0); Mean Platelet Volume 7.4; Monocytes # (A) 0.4 k/uL (0-1.0); Monocytes % (A) 3 %; Neutrophils % (A) 90 %; Platelet Count 305 k/uL (150-450); RBC 4.57 m/uL (4.30-5.90); RDW 14.4 % (11.5-15.5); WBC 14.4 k/uL (3.8-10.6)
[2017-11-15 11:41] LABS: Anisocytosis (M) Present; Poikilocytosis (M) Present
[2017-11-15 11:44] LABS: Anion Gap 9 mmol/L; Blood Urea Nitrogen 42 mg/dL (9-20); Calcium 8.5 mg/dL (8.4-10.2); Carbon Dioxide 23 mmol/L (22-30); Chloride 103 mmol/L (98-107); Glucose 112 mg/dL (74-99); Potassium 3.4 mmol/L (3.5-5.1); Sodium 135 mmol/L (137-145)
[2017-11-15] MEDS: PANTOPRAZOLE 40 MG TABLET PO SCH (12:45)
[2017-11-15] MEDS: LACTULOSE 20 GM/30 ML CUP PO PRN (12:45)
[2017-11-15] MEDS: SODIUM CHLORIDE 0.9% 1,000 ML IV SCH ×2 (12:46→22:18)
[2017-11-15] MEDS ORDERED: POTASSIUM CHLORIDE ER 10 MEQ TAB.ER.PRT PO STA (13:05)
[2017-11-15] MEDS ORDERED: LEVOFLOXACIN 500MG-D5W PMX 500 MG in DEXTROSE/WATER 1 100ML.BAG IVPB SCH (13:15)
--- NOTE | 2017-11-15 14:45 | P.GSCN ---
History of Present Illness Consult date: 11/15/17 Reason for Consult: Abdominal pain, constipation History of present illness: This a 72-year-old male well-known to myself. Patient history of metastatic colon cancer. Patient previous left colectomy with reversal of colostomy. The patient states he feels he is slightly constipated. He also has some lower abdominal pain. His CAT scan shows no evidence of obstruction. Past Medical History Past Medical History: Atrial Fibrillation, Heart Failure, COPD, GERD/Reflux, Osteoarthritis (OA) Additional Past Medical History / Comment(s): CHF, cardiomyopathy, chronic back and bilateral lower extremity pain and weakness, arthritis multiple joints, constipation d/t opiods, diverticulitis with bowel resection/colostomy then colostomy reversal, colon polyps, sepsis after colostomy reversal.ddd History of Any Multi-Drug Resistant Organisms: None Reported Past Surgical History: AICD, Bowel Resection, Heart Catheterization Additional Past Surgical History / Comment(s): BiV ICD but pt states it was not firing properly so wires were disconnected, bowel resection d/t diverticular disease per pt and had colostomy/reversal of colostomy, colonoscopy/polypectomy- benign, TURP, Past Anesthesia/Blood Transfusion Reactions: No Reported Reaction Type of Cardiac Device: AICD Device Placement Date:: 2007 Smoking Status: Current every day smoker - Past Family History Mother Family Medical History: Cancer Additional Family Medical History / Comment(s): Mother had breast cancer. She lived to be 94 yrs old. Father Additional Family Medical History / Comment(s): diverticulitis Medications and Allergies Home Medications Medication Instructions Recorded Confirmed Type Lisinopril [Prinivil] 5 mg PO BID 03/08/14 11/14/17 History Baclofen [Lioresal] 10 mg PO HS 05/29/16 11/14/17 History Digoxin 250 mcg PO DAILY 06/28/16 11/14/17 History Hydrochlorothiazide [Hydrodiuril] 25 mg PO BID 06/26/17 11/14/17 History Lactulose 20 gm PO DAILY PRN 06/26/17 11/14/17 History Morphine Sulfate [Ms Contin] 30 mg PO Q8H 06/26/17 11/14/17 History Escitalopram [Lexapro] 5 mg PO DAILY #30 tab 06/28/17 11/14/17 Rx Polyethylene Glycol 3350 [Miralax] 17 gm PO HS #30 powd.pack 06/28/17 11/14/17 Rx Carvedilol [Coreg] 3.125 mg PO DAILY 11/14/17 11/14/17 History Allergies Allergy/AdvReac Type Severity Reaction Status Date / Time No Known Allergies Allergy Verified 11/14/17 20:34 Surgical - Exam Vital Signs Temp Pulse Resp BP Pulse Ox 97.7 F 107 H 18 103/70 100 11/14/17 16:44 11/14/17 16:44 11/14/17 16:44 11/14/17 16:44 11/14/17 16:44 - General well developed, no distress - Eyes PERRL - ENT normal pinna - Neck no masses - Respiratory normal expansion - Cardiovascular Rhythm: regular - Abdomen No peritoneal signs. Abdomen: soft, non tender Results - Labs 11/15/17 11:05 11/15/17 11:05 Abnormal Lab Results - Last 24 Hours (Table) 11/14/17 11/14/17 11/14/17 Range/Units 17:35 17:35 20:45 WBC 13.1 H (3.8-10.6) k/uL Neutrophils # 11.6 H (1.3-7.7) k/uL Lymphocytes # 0.8 L (1.0-4.8) k/uL Sodium 136 L (137-145) mmol/L Potassium (3.5-5.1) mmol/L BUN 48 H (9-20) mg/dL Glucose 127 H (74-99) mg/dL ALT 18 L (21-72) U/L Ur Specific [place] 1.038 H (1.001-1.035) Urine Protein 1+ H (Negative) Urine Ketones 1+ H (Negative) Urine Bacteria Rare H (None) /hpf Urine Mucus Rare H (None) /hpf 11/15/17 11/15/17 Range/Units 11:05 11:05 WBC 14.4 H (3.8-10.6) k/uL Neutrophils # 13.0 H (1.3-7.7) k/uL Lymphocytes # 0.8 L (1.0-4.8) k/uL Sodium 135 L (137-145) mmol/L Potassium 3.4 L (3.5-5.1) mmol/L BUN 42 H (9-20) mg/dL Glucose 112 H (74-99) mg/dL ALT (21-72) U/L Ur Specific [place] (1.001-1.035) Urine Protein (Negative) Urine Ketones (Negative) Urine Bacteria (None) /hpf Urine Mucus (None) /hpf Diabetes panel 11/14/17 11/15/17 Range/Units 17:35 11:05 Sodium 136 L 135 L (137-145) mmol/L Potassium 3.9 3.4 L (3.5-5.1) mmol/L Chloride 101 103 (98-107) mmol/L Carbon Dioxide 24 23 (22-30) mmol/L BUN 48 H 42 H (9-20) mg/dL Creatinine 1.10 0.90 (0.66-1.25) mg/dL Glucose 127 H 112 H (74-99) mg/dL Calcium 9.4 8.5 (8.4-10.2) mg/dL AST 35 (17-59) U/L ALT 18 L (21-72) U/L Alkaline Phosphatase 100 (38-126) U/L Total Protein 7.3 (6.3-8.2) g/dL Albumin 4.3 (3.5-5.0) g/dL Calcium panel 11/14/17 11/15/17 Range/Units 17:35 11:05 Calcium 9.4 8.5 (8.4-10.2) mg/dL Albumin 4.3 (3.5-5.0) g/dL Pituitary panel 11/14/17 11/15/17 Range/Units 17:35 11:05 Sodium 136 L 135 L (137-145) mmol/L Potassium 3.9 3.4 L (3.5-5.1) mmol/L Chloride 101 103 (98-107) mmol/L Carbon Dioxide 24 23 (22-30) mmol/L BUN 48 H 42 H (9-20) mg/dL Creatinine 1.10 0.90 (0.66-1.25) mg/dL Glucose 127 H 112 H (74-99) mg/dL Calcium 9.4 8.5 (8.4-10.2) mg/dL Adrenal panel 11/14/17 11/15/17 Range/Units 17:35 11:05 Sodium 136 L 135 L (137-145) mmol/L Potassium 3.9 3.4 L (3.5-5.1) mmol/L Chloride 101 103 (98-107) mmol/L Carbon Dioxide 24 23 (22-30) mmol/L BUN 48 H 42 H (9-20) mg/dL Creatinine 1.10 0.90 (0.66-1.25) mg/dL Glucose 127 H 112 H (74-99) mg/dL Calcium 9.4 8.5 (8.4-10.2) mg/dL Total Bilirubin 0.9 (0.2-1.3) mg/dL AST 35 (17-59) U/L ALT 18 L (21-72) U/L Alkaline Phosphatase 100 (38-126) U/L Total Protein 7.3 (6.3-8.2) g/dL Albumin 4.3 (3.5-5.0) g/dL Assessment and Plan Assessment: History of metastatic colon cancer. The patient has no signs of obvious obstruction. He'll remain on a liquid diet. He'll be given a Fleet enema today.
[2017-11-15] MEDS ORDERED: metroNIDAZOLE-NS PMX 500 MG in SALINE 1 100ML.BAG IVPB SCH (16:00)
[2017-11-15] MEDS ORDERED: NA PHOS,M-B/NA PHOS,DI-BA 133 ML ENEMA RECTAL STA (16:00)
[2017-11-15] MEDS ORDERED: NA PHOS,M-B/NA PHOS,DI-BA 133 ML ENEMA RECTAL ONE (18:00)
[2017-11-15] MEDS: metroNIDAZOLE 500 MG TAB PO SCH ×3 (18:17→22:18)
[2017-11-15] MEDS: LEVOFLOXACIN 500 MG TAB PO SCH (18:17)
[2017-11-15] MEDS: POLYETHYLENE GLYCOL 3350 17 GM POWD.PACK PO SCH (20:03)
[2017-11-16] MEDS: MORPHINE SULFATE ER 30 MG TABLET PO SCH ×3 (05:46→20:30)
[2017-11-16] MEDS: PANTOPRAZOLE 40 MG TABLET PO SCH (07:37)
[2017-11-16] MEDS: HYDROCHLOROTHIAZIDE 25 MG TAB PO SCH ×2 (07:38→20:30)
[2017-11-16] MEDS: CARVEDILOL 3.125 MG TAB PO SCH (07:38)
[2017-11-16] MEDS: DIGOXIN 250 MCG TAB PO SCH (07:38)
[2017-11-16] MEDS: metroNIDAZOLE 500 MG TAB PO SCH ×4 (07:39→21:16)
[2017-11-16] MEDS: LISINOPRIL 5 MG TAB PO SCH ×2 (07:39→20:30)
[2017-11-16 07:54] LABS: Albumin 3.7 g/dL (3.5-5.0); Calcium 8.5 mg/dL (8.4-10.2); Total Bilirubin 0.9 mg/dL (0.2-1.3); Total Protein 6.3 g/dL (6.3-8.2)
[2017-11-16 08:13] LABS: Basophils % (A) 0 %; Eosinophils % (A) 0 %; HCT 48.5 % (39.0-53.0); HGB 15.9 gm/dL (13.0-17.5); Lymphocytes # (A) 0.8 k/uL (1.0-4.8); Lymphocytes % (A) 5 %; MCH 30.8 pg (25.0-35.0); MCHC 32.9 g/dL (31.0-37.0); MCV 93.8 fL (80.0-100.0); Mean Platelet Volume 7.5; Monocytes # (A) 0.5 k/uL (0-1.0); Monocytes % (A) 3 %; Neutrophils # (A) 15.5 k/uL (1.3-7.7); Neutrophils % (A) 91 %; Platelet Count 261 k/uL (150-450); RBC 5.17 m/uL (4.30-5.90); RDW 14.4 % (11.5-15.5)
[2017-11-16] MEDS: SODIUM CHLORIDE 0.9% 1,000 ML IV SCH ×2 (09:50→17:52)
--- NOTE | 2017-11-16 11:24 | P.PN ---
Subjective Progress Note Date: 11/16/17 The patient is a 72-year-old male who presents with history of metastatic colon cancer. He denies any significant abdominal pain. He reports being tired. He has had poor sleep while being in the hospital. Objective - Vital Signs Vital signs: Vital Signs Temp 97.1 F L 11/16/17 05:00 Pulse 90 11/16/17 05:00 Resp 16 11/16/17 05:00 BP 150/67 11/16/17 05:00 Pulse Ox 98 11/16/17 05:00 Intake & Output 11/15/17 11/16/17 11/16/17 18:59 06:59 18:59 Intake Total 200 Output Total 200 200 Balance 0 -200 Weight 68.039 kg 68.039 kg Intake: Intake, IV Titration 200 Amount Sodium Chloride 0.9% 1, 200 000 ml @ 100 mls/hr IV . Q10H ROSAS Rx#:[id number] Output: Urine 200 200 Other: Voiding Method Toilet Toilet # Voids 1 1 1 - Exam ABDOMEN: Soft, nontender. Nondistended. GENERAL: Well developed and in no acute distress. Pleasant. HEENT: No sclera icterus. Extraocular movements grossly intact. Moist buccal mucosa. Head is atraumatic, normocephalic. Hears conversational speech. No nasal drainage. NECK: Supple without lymphadenopathy. CHEST: Non-labored respirations and equal bilateral excursions. CARDIOVASCULAR: Regular rate and rhythm. Palpable 2+ radial pulses. MUSCULOSKELETAL: No clubbing, cyanosis or edema. NEUROLOGIC: No focal or lateralizing signs. PSYCH: Poor appropriate affect. Alert and oriented to person, place and time. SKIN: Good skin turgor. Well perfused. - Labs CBC & Chem 7: 11/16/17 07:03 11/16/17 07:03 Labs: Abnormal Lab Results - Last 24 Hours (Table) 11/15/17 11/15/17 11/16/17 Range/Units 11:05 11:05 07:03 WBC 14.4 H 17.0 H (3.8-10.6) k/uL Neutrophils # 13.0 H 15.5 H (1.3-7.7) k/uL Lymphocytes # 0.8 L 0.8 L (1.0-4.8) k/uL Sodium 135 L (137-145) mmol/L Potassium 3.4 L (3.5-5.1) mmol/L Carbon Dioxide (22-30) mmol/L BUN 42 H (9-20) mg/dL Glucose 112 H (74-99) mg/dL 11/16/17 Range/Units 07:03 WBC (3.8-10.6) k/uL Neutrophils # (1.3-7.7) k/uL Lymphocytes # (1.0-4.8) k/uL Sodium 135 L (137-145) mmol/L Potassium (3.5-5.1) mmol/L Carbon Dioxide 18 L (22-30) mmol/L BUN 45 H (9-20) mg/dL Glucose (74-99) mg/dL - Imaging and Cardiology CT scan - abdomen: image reviewed CT scan - pelvis: image reviewed (No free air found. Stool in the ascending colon. Gaseous distention of the colon found.) Assessment and Plan (1) Colon cancer Current Visit: No Status: Acute Code(s): C18.9 - MALIGNANT NEOPLASM OF COLON , UNSPECIFIED SNOMED Code(s): 032760355 (2) History of colostomy reversal Current Visit: No Status: Acute Code(s): TGM6654 - SNOMED Code(s): 107405166 (3) Constipation Current Visit: Yes Status: Acute Code(s): K59.00 - CONSTIPATION, UNSPECIFIED SNOMED Code(s): 74135302 Plan: 1. No surgical intervention needed. 2. Diet as tolerated. 3. May benefit from sleep aid. 4. Milk of magnesia for constipation.
--- NOTE | 2017-11-16 12:39 | P.PN ---
Subjective Progress Note Date: 11/16/17 This is a 72-year-old male with a known history of chronic back pain in which she takes oral morphine. He also has a history of nonischemic cardiomyopathy and his AICD was turned off, hypertension, colon cancer status post bowel resection with colostomy reversal and history of opiate-induced constipation. Patient presents to the emergency room with complaints of abdominal pain all over the abdomen. Initially in the ER report they reported vomiting and diarrhea. Patient reports that he's been feeling nauseous and constipated and has had no stools for about one week. Patient has had poor appetite. Patient is a poor historian. Computed tomography scan of the abdomen showing colonic gaseous distention from the cecum to the sigmoid. No bowel obstruction noted. Surgical consult placed. IV fluids have been ordered. Unfortunately patient has no IV access. And is a difficult IV start. Midline has been ordered. White count 13.1, BUN 48, creatinine 1.10. LFTs and amylase and lipase are normal. Patient denies any chest pain or shortness of breath. He admits to feeling hot and cold at times. No fever reported. He admits to passing gas. Denies any difficulty urinating. 11/16/2017 patient is alert and oriented 3 he had multiple bowel movements after he received Fleet enemas, abdominal pain has subsided there is no fever or chills no headache or dizziness no nausea or vomiting he is tolerating liquid diet well, he is asking for more food, white blood count has gone up from 14,000-17,000 today. Consultation for critical care has been initiated for triple-lumen placement patient was seen by Dr. Payne however patient refused to have any line placed. Objective - Vital Signs Vital signs: Vital Signs Temp 97.1 F L 11/16/17 05:00 Pulse 90 11/16/17 05:00 Resp 16 11/16/17 05:00 BP 150/67 11/16/17 05:00 Pulse Ox 98 11/16/17 05:00 Intake & Output 11/15/17 11/16/17 11/16/17 18:59 06:59 18:59 Intake Total 200 Output Total 200 200 Balance 0 -200 Weight 68.039 kg 68.039 kg Intake: Intake, IV Titration 200 Amount Sodium Chloride 0.9% 1, 200 000 ml @ 100 mls/hr IV . Q10H [facility] Rx#:[id number] Output: Urine 200 200 Other: Voiding Method Toilet Toilet # Voids 1 1 1 - Exam Head normocephalic and atraumatic Neck supple no JVD no goiter Lungs clear to auscultation bilaterally no wheezing or crackles Heart regular rate and rhythm S1-S2, no rub or gallop Abdomen is soft nondistended positive bowel sounds diffuse abdominal tenderness Extremities no edema Neuro alert and orientated to 3 - Labs CBC & Chem 7: 11/16/17 07:03 11/16/17 07:03 Labs: Abnormal Lab Results - Last 24 Hours (Table) 11/16/17 11/16/17 Range/Units 07:03 07:03 WBC 17.0 H (3.8-10.6) k/uL Neutrophils # 15.5 H (1.3-7.7) k/uL Lymphocytes # 0.8 L (1.0-4.8) k/uL Sodium 135 L (137-145) mmol/L Carbon Dioxide 18 L (22-30) mmol/L BUN 45 H (9-20) mg/dL Assessment and Plan Plan: 1. Abdominal pain with a known history of opioid-induced constipation: Computed tomography scan of the abdomen and pelvis show colonic gaseous distention from the cecum to the sigmoid. Surgical consult placed. 2. Leukocytosis present on admission. Repeat white count, possibly reactive white blood count up today Will continue to monitor patient was started on oral Levaquin and Flagyl due to finding related to colon on computed tomography scan 3. Mild dehydration: BUN 48 . Trying to get IV access or midline placed The patient can receive IV fluids 4. Essential hypertension: Continue lisinopril, hydrochlorothiazide and Coreg 5. Chronic back pain continue oral morphine 6. History of Nonischemic cardiomyopathy patient has had his AICD turned off 7. History of colon cancer status post bowel resection with colostomy reversal 8. Depression continue Lexapro 9. One episode of paroxysmal atrial fibrillation in the past. Not on any anticoagulation. Patient takes digoxin and coreg
[2017-11-16] MEDS: MAGNESIUM HYDROXIDE 2,400 MG/10 ML CUP PO SCH (13:25)
[2017-11-16] MEDS: LEVOFLOXACIN 500 MG TAB PO SCH (17:53)
[2017-11-16] MEDS: BACLOFEN 10 MG TAB PO SCH (20:30)
[2017-11-16] MEDS: POLYETHYLENE GLYCOL 3350 17 GM POWD.PACK PO SCH (21:16)
[2017-11-17] MEDS: MORPHINE SULFATE ER 30 MG TABLET PO SCH ×3 (05:01→21:30)
[2017-11-17] MEDS: SODIUM CHLORIDE 0.9% 1,000 ML IV SCH ×2 (05:01→14:23)
[2017-11-17 07:47] LABS: Basophils % (A) 0 %; Eosinophils # (A) 0.1 k/uL (0-0.7); Eosinophils % (A) 0 %; HCT 41.3 % (39.0-53.0); HGB 13.6 gm/dL (13.0-17.5); Lymphocytes % (A) 7 %; MCH 30.5 pg (25.0-35.0); MCV 92.4 fL (80.0-100.0); Monocytes # (A) 0.5 k/uL (0-1.0); Monocytes % (A) 4 %; Neutrophils % (A) 89 %; Platelet Count 226 k/uL (150-450); RBC 4.46 m/uL (4.30-5.90); RDW 14.4 % (11.5-15.5); WBC 14.7 k/uL (3.8-10.6)
[2017-11-17 07:57] LABS: Calcium 8.1 mg/dL (8.4-10.2); Total Bilirubin 0.5 mg/dL (0.2-1.3); Total Protein 5.2 g/dL (6.3-8.2)
[2017-11-17 08:00] LABS: Potassium 3.8 mmol/L (3.5-5.1)
[2017-11-17] MEDS: CARVEDILOL 3.125 MG TAB PO SCH (08:40)
[2017-11-17] MEDS: HYDROCHLOROTHIAZIDE 25 MG TAB PO SCH (08:40)
[2017-11-17] MEDS: metroNIDAZOLE 500 MG TAB PO SCH ×4 (08:40→21:31)
[2017-11-17] MEDS: LISINOPRIL 5 MG TAB PO SCH ×2 (08:40→21:31)
[2017-11-17] MEDS: PANTOPRAZOLE 40 MG TABLET PO SCH (08:40)
[2017-11-17] MEDS: MAGNESIUM HYDROXIDE 2,400 MG/10 ML CUP PO SCH (08:41)
[2017-11-17] MEDS: DIGOXIN 250 MCG TAB PO SCH (08:41)
--- NOTE | 2017-11-17 14:02 | P.PN ---
Subjective Progress Note Date: 11/17/17 This is a 72-year-old male with a known history of chronic back pain in which she takes oral morphine. He also has a history of nonischemic cardiomyopathy and his AICD was turned off, hypertension, colon cancer status post bowel resection with colostomy reversal and history of opiate-induced constipation. Patient presents to the emergency room with complaints of abdominal pain all over the abdomen. Initially in the ER report they reported vomiting and diarrhea. Patient reports that he's been feeling nauseous and constipated and has had no stools for about one week. Patient has had poor appetite. Patient is a poor historian. Computed tomography scan of the abdomen showing colonic gaseous distention from the cecum to the sigmoid. No bowel obstruction noted. Surgical consult placed. IV fluids have been ordered. Unfortunately patient has no IV access. And is a difficult IV start. Midline has been ordered. White count 13.1, BUN 48, creatinine 1.10. LFTs and amylase and lipase are normal. Patient denies any chest pain or shortness of breath. He admits to feeling hot and cold at times. No fever reported. He admits to passing gas. Denies any difficulty urinating. 11/16/2017 patient is alert and oriented 3 he had multiple bowel movements after he received Fleet enemas, abdominal pain has subsided there is no fever or chills no headache or dizziness no nausea or vomiting he is tolerating liquid diet well, he is asking for more food, white blood count has gone up from 14,000-17,000 today. Consultation for critical care has been initiated for triple-lumen placement patient was seen by Dr. Payne however patient refused to have any line placed. On 11/17/2017 patient is alert and oriented complaining of some abdominal discomfort otherwise denies any complaints no bowel movement in the last 24 hours, white blood count is improved from 17.0 down to 14.7, however kidney function has worsened was elevated BUN at 56 and elevated creatinine at 1.53 Objective - Vital Signs Vital signs: Vital Signs Temp 97.6 F 11/17/17 07:38 Pulse 59 L 11/17/17 07:38 Resp 16 11/17/17 07:38 BP 113/58 11/17/17 07:38 Pulse Ox 99 11/17/17 07:38 Intake & Output 11/16/17 11/17/17 11/17/17 18:59 06:59 18:59 Intake Total 380 Output Total 600 Balance -220 Weight 68.039 kg Intake: Oral 380 Output: Urine 600 Other: Voiding Method Toilet Toilet Bedside Commode # Voids 2 1 # Bowel Movements 1 - Exam Head normocephalic and atraumatic Neck supple no JVD no goiter Lungs clear to auscultation bilaterally no wheezing or crackles Heart regular rate and rhythm S1-S2, no rub or gallop Abdomen is soft nondistended positive bowel sounds diffuse abdominal tenderness Extremities no edema Neuro alert and orientated to 3 - Labs CBC & Chem 7: 11/17/17 07:05 11/17/17 07:05 Labs: Abnormal Lab Results - Last 24 Hours (Table) 11/17/17 11/17/17 Range/Units 07:05 07:05 WBC 14.7 H (3.8-10.6) k/uL Neutrophils # 13.0 H (1.3-7.7) k/uL Sodium 132 L (137-145) mmol/L BUN 56 H (9-20) mg/dL Creatinine 1.53 H (0.66-1.25) mg/dL Calcium 8.1 L (8.4-10.2) mg/dL ALT 19 L (21-72) U/L Total Protein 5.2 L (6.3-8.2) g/dL Albumin 3.0 L (3.5-5.0) g/dL Assessment and Plan Plan: 1. Abdominal pain with a known history of opioid-induced constipation: Computed tomography scan of the abdomen and pelvis show colonic gaseous distention from the cecum to the sigmoid. Surgical consult placed. 2. Leukocytosis present on admission. Repeat white count, possibly reactive white blood count up today Will continue to monitor patient was started on oral Levaquin and Flagyl due to finding related to colon on computed tomography scan 3. Duration was acute renal failure due to prerenal azotemia creatinine up to 1.53, no IV access, patient refused triple-lumen, he was encouraged to drink more water, if kidney function is worsening will proceed with PICC line tomorrow 4. Essential hypertension: Continue lisinopril, hydrochlorothiazide and Coreg 5. Chronic back pain continue oral morphine 6. History of Nonischemic cardiomyopathy patient has had his AICD turned off 7. History of colon cancer status post bowel resection with colostomy reversal 8. Depression continue Lexapro 9. One episode of paroxysmal atrial fibrillation in the past. Not on any anticoagulation. Patient takes digoxin and coreg
[2017-11-17] MEDS: LEVOFLOXACIN 500 MG TAB PO SCH (17:39)
[2017-11-17] MEDS: BACLOFEN 10 MG TAB PO SCH (21:31)
[2017-11-17] MEDS: POLYETHYLENE GLYCOL 3350 17 GM POWD.PACK PO SCH (21:31)
[2017-11-18] MEDS: SODIUM CHLORIDE 0.9% 1,000 ML IV SCH ×2 (05:01→10:00)
[2017-11-18] MEDS: MORPHINE SULFATE ER 30 MG TABLET PO SCH ×3 (05:17→21:11)
[2017-11-18 08:13] LABS: Basophils % (A) 0 %; Eosinophils # (A) 0.3 k/uL (0-0.7); Eosinophils % (A) 2 %; HCT 42.6 % (39.0-53.0); HGB 14.1 gm/dL (13.0-17.5); Lymphocytes # (A) 1.2 k/uL (1.0-4.8); Lymphocytes % (A) 7 %; MCH 30.6 pg (25.0-35.0); MCHC 33.1 g/dL (31.0-37.0); MCV 92.3 fL (80.0-100.0); Mean Platelet Volume 8.2; Monocytes # (A) 0.7 k/uL (0-1.0); Monocytes % (A) 4 %; Neutrophils # (A) 14.7 k/uL (1.3-7.7); Neutrophils % (A) 86 %; Platelet Count 217 k/uL (150-450); RBC 4.62 m/uL (4.30-5.90); RDW 14.2 % (11.5-15.5); WBC 17.1 k/uL (3.8-10.6)
[2017-11-18 08:39] LABS: Albumin 3.3 g/dL (3.5-5.0); Calcium 8.7 mg/dL (8.4-10.2); Total Bilirubin 0.4 mg/dL (0.2-1.3); Total Protein 5.6 g/dL (6.3-8.2)
[2017-11-18] MEDS: LISINOPRIL 5 MG TAB PO SCH (09:59)
[2017-11-18] MEDS: PANTOPRAZOLE 40 MG TABLET PO SCH (09:59)
[2017-11-18] MEDS: CARVEDILOL 3.125 MG TAB PO SCH (09:59)
[2017-11-18] MEDS: metroNIDAZOLE 500 MG TAB PO SCH ×4 (09:59→21:11)
[2017-11-18] MEDS: DIGOXIN 250 MCG TAB PO SCH (09:59)
[2017-11-18] MEDS: MAGNESIUM HYDROXIDE 2,400 MG/10 ML CUP PO SCH (10:00)
--- NOTE | 2017-11-18 11:37 | P.PN ---
Subjective Progress Note Date: 11/18/17 This is a 72-year-old male with a known history of chronic back pain in which she takes oral morphine. He also has a history of nonischemic cardiomyopathy and his AICD was turned off, hypertension, colon cancer status post bowel resection with colostomy reversal and history of opiate-induced constipation. Patient presents to the emergency room with complaints of abdominal pain all over the abdomen. Initially in the ER report they reported vomiting and diarrhea. Patient reports that he's been feeling nauseous and constipated and has had no stools for about one week. Patient has had poor appetite. Patient is a poor historian. Computed tomography scan of the abdomen showing colonic gaseous distention from the cecum to the sigmoid. No bowel obstruction noted. Surgical consult placed. IV fluids have been ordered. Unfortunately patient has no IV access. And is a difficult IV start. Midline has been ordered. White count 13.1, BUN 48, creatinine 1.10. LFTs and amylase and lipase are normal. Patient denies any chest pain or shortness of breath. He admits to feeling hot and cold at times. No fever reported. He admits to passing gas. Denies any difficulty urinating. 11/16/2017 patient is alert and oriented 3 he had multiple bowel movements after he received Fleet enemas, abdominal pain has subsided there is no fever or chills no headache or dizziness no nausea or vomiting he is tolerating liquid diet well, he is asking for more food, white blood count has gone up from 14,000-17,000 today. Consultation for critical care has been initiated for triple-lumen placement patient was seen by Dr. Payne however patient refused to have any line placed. On 11/17/2017 patient is alert and oriented complaining of some abdominal discomfort otherwise denies any complaints no bowel movement in the last 24 hours, white blood count is improved from 17.0 down to 14.7, however kidney function has worsened was elevated BUN at 56 and elevated creatinine at 1.53 On 11/18/2017 patient is alert and oriented sitting in bed comfortably. Per nursing staff patient did have a bowel movement last night. Patient does state his abdominal discomfort has improved slightly. WBC this a.m. trending back up at 17.1. Awaiting infectious disease consultation. Patient remains on oral Levaquin and Flagyl. Blood cultures and urine cultures have been ordered. Per surgical services no intervention is needed, diet as tolerated and milk of magnesia given for constipation. Bun 51, creatinine 1.32. Per nursing staff patient does not have IV access at this time. Patient denies chest pain or shortness of breath. patient denies diarrhea nausea or vomiting. Denies burning with urination and frequency. Objective - Vital Signs Vital signs: Vital Signs Temp 97.3 F L 11/18/17 06:34 Pulse 55 L 11/18/17 06:34 Resp 18 11/18/17 06:34 BP 123/60 11/18/17 06:34 Pulse Ox 100 11/18/17 06:34 Intake & Output 11/17/17 11/18/17 11/18/17 18:59 06:59 18:59 Intake Total 650 800 Output Total 200 2 Balance 450 798 Weight 68.039 kg Intake: Oral 650 800 Output: Urine 200 Stool 2 Other: Voiding Method Bedside Commode Bedside Commode Bedside Commode # Voids 2 2 - Exam Head normocephalic and atraumatic Neck supple no JVD no goiter Lungs clear to auscultation bilaterally no wheezing or crackles Heart regular rate and rhythm S1-S2, no rub or gallop Abdomen is soft nondistended positive bowel sounds diffuse abdominal tenderness Extremities no edema Neuro alert and orientated to 3 - Labs CBC & Chem 7: 11/18/17 07:53 11/18/17 07:53 Labs: Abnormal Lab Results - Last 24 Hours (Table) 11/18/17 11/18/17 Range/Units 07:53 07:53 WBC 17.1 H (3.8-10.6) k/uL Neutrophils # 14.7 H (1.3-7.7) k/uL Sodium 133 L (137-145) mmol/L BUN 51 H (9-20) mg/dL Creatinine 1.32 H (0.66-1.25) mg/dL Glucose 121 H (74-99) mg/dL ALT 20 L (21-72) U/L Total Protein 5.6 L (6.3-8.2) g/dL Albumin 3.3 L (3.5-5.0) g/dL Assessment and Plan Assessment: 1. Abdominal pain with a known history of opioid-induced constipation: Computed tomography scan of the abdomen and pelvis show colonic gaseous distention from the cecum to the sigmoid. Surgical consult placed. Per surgical services no surgical intervention needed, diet as tolerated and milk of magnesia given for constipation. Per nursing staff patient did have bowel movement 2. Leukocytosis present on admission. Repeat white count, possibly reactive white blood count up today Will continue to monitor patient was started on oral Levaquin and Flagyl due to finding related to colon on computed tomography scan. WBC trending up at 17.1. 3. Duration was acute renal failure due to prerenal azotemia creatinine up to 1.53, no IV access, patient refused triple-lumen, he was encouraged to drink more water, if kidney function is worsening will proceed with PICC line tomorrow. Bun 51, creatinine 1.32. 4. Essential hypertension: patient on Coreg. Patient's hydrochlorothiazide and lisinopril DC'd due to kidney function 5. Chronic back pain continue oral morphine 6. History of Nonischemic cardiomyopathy patient has had his AICD turned off 7. History of colon cancer status post bowel resection with colostomy reversal 8. Depression continue Lexapro 9. One episode of paroxysmal atrial fibrillation in the past. Not on any anticoagulation. Patient takes digoxin and coreg I performed an examination of the patient and discussed their management with the Nurse Practitioner. I have reviewed the Nurse Practitioner's notes and agree with the documented findings and plan of care
[2017-11-18] MEDS: LEVOFLOXACIN 500 MG TAB PO SCH (17:58)
[2017-11-18] MEDS: POLYETHYLENE GLYCOL 3350 17 GM POWD.PACK PO SCH (21:08)
[2017-11-18] MEDS: BACLOFEN 10 MG TAB PO SCH (21:11)
[2017-11-19] MEDS: AMPICILLIN-SULBACTAM 3 GM in SODIUM CHLORIDE 0.9% 100 ML IVPB SCH ×4 (04:19→18:23)
[2017-11-19] MEDS: SODIUM CHLORIDE 0.9% 1,000 ML IV SCH ×3 (04:20→15:44)
[2017-11-19] MEDS: MORPHINE SULFATE ER 30 MG TABLET PO SCH ×3 (05:10→21:09)
[2017-11-19] MEDS: DIGOXIN 250 MCG TAB PO SCH (08:00)
[2017-11-19] MEDS: CARVEDILOL 3.125 MG TAB PO SCH (08:00)
[2017-11-19] MEDS: IOPAMIDOL-300 CONTRAST 30 ML VIAL (ORAL USE) PO PRN ×2 (08:05→09:13)
--- NOTE | 2017-11-19 10:55 | P.PN ---
Subjective Progress Note Date: 11/19/17 This is a 72-year-old male with a known history of chronic back pain in which she takes oral morphine. He also has a history of nonischemic cardiomyopathy and his AICD was turned off, hypertension, colon cancer status post bowel resection with colostomy reversal and history of opiate-induced constipation. Patient presents to the emergency room with complaints of abdominal pain all over the abdomen. Initially in the ER report they reported vomiting and diarrhea. Patient reports that he's been feeling nauseous and constipated and has had no stools for about one week. Patient has had poor appetite. Patient is a poor historian. Computed tomography scan of the abdomen showing colonic gaseous distention from the cecum to the sigmoid. No bowel obstruction noted. Surgical consult placed. IV fluids have been ordered. Unfortunately patient has no IV access. And is a difficult IV start. Midline has been ordered. White count 13.1, BUN 48, creatinine 1.10. LFTs and amylase and lipase are normal. Patient denies any chest pain or shortness of breath. He admits to feeling hot and cold at times. No fever reported. He admits to passing gas. Denies any difficulty urinating. 11/16/2017 patient is alert and oriented 3 he had multiple bowel movements after he received Fleet enemas, abdominal pain has subsided there is no fever or chills no headache or dizziness no nausea or vomiting he is tolerating liquid diet well, he is asking for more food, white blood count has gone up from 14,000-17,000 today. Consultation for critical care has been initiated for triple-lumen placement patient was seen by Dr. Payne however patient refused to have any line placed. On 11/17/2017 patient is alert and oriented complaining of some abdominal discomfort otherwise denies any complaints no bowel movement in the last 24 hours, white blood count is improved from 17.0 down to 14.7, however kidney function has worsened was elevated BUN at 56 and elevated creatinine at 1.53 On 11/18/2017 patient is alert and oriented sitting in bed comfortably. Per nursing staff patient did have a bowel movement last night. Patient does state his abdominal discomfort has improved slightly. WBC this a.m. trending back up at 17.1. Awaiting infectious disease consultation. Patient remains on oral Levaquin and Flagyl. Blood cultures and urine cultures have been ordered. Per surgical services no intervention is needed, diet as tolerated and milk of magnesia given for constipation. Bun 51, creatinine 1.32. Per nursing staff patient does not have IV access at this time. Patient denies chest pain or shortness of breath. patient denies diarrhea nausea or vomiting. Denies burning with urination and frequency. On 11/19/2017 patient is alert and sitting in bed comfortably received a midline this morning. Antibiotics were switched per Dr. Raymundo to Unasyn that he will now receive through his midline. Patient also received normal saline at 100. Lab results Currently pending. CT of the abdomen and pelvis with oral contrast was ordered per Dr. Montero. Last Bowel movement was 2 days ago. Per nursing Patient had refused stool softners but will continue to encourage patient to take it. Urine and blood cultures pending. Patient denies chest pain or shortness of breath at this time. Objective - Vital Signs Vital signs: Vital Signs Temp 98.1 F 11/19/17 08:32 Pulse 54 L 11/19/17 08:37 Resp 18 11/19/17 08:37 BP 143/64 11/19/17 08:32 Pulse Ox 100 11/19/17 08:32 Intake & Output 11/18/17 11/19/17 11/19/17 18:59 06:59 18:59 Output Total 2 Balance -2 Weight 58 kg Output: Stool 2 Other: Voiding Method Bedside Commode Bedside Commode # Voids 2 1 - Exam Head normocephalic and atraumatic Neck supple no JVD no goiter Lungs clear to auscultation bilaterally no wheezing or crackles Heart regular rate and rhythm S1-S2, no rub or gallop Abdomen is soft nondistended positive bowel sounds diffuse abdominal tenderness Extremities no edema Neuro alert and orientated to 3 - Labs CBC & Chem 7: 11/18/17 07:53 11/18/17 07:53 Assessment and Plan Assessment: 1. Abdominal pain with a known history of opioid-induced constipation: Computed tomography scan of the abdomen and pelvis show colonic gaseous distention from the cecum to the sigmoid. Surgical consult placed. Per surgical services no surgical intervention needed, diet as tolerated and milk of magnesia given for constipation. CT of abdomen and pelvis ordered per Dr. Raymundo results currently pending. Per nursing staff patient had bowel movement 2 days ago and will continue to encourage uses stool softeners. 2. Leukocytosis present on admission. Repeat white count, possibly reactive white blood count up today Will continue to monitor patient was started on oral Levaquin and Flagyl due to finding related to colon on computed tomography scan. WBC trending up at 17.1. Per Dr. Raymundo patient has been started on antibiotic Unasyn. 3. Duration was acute renal failure due to prerenal azotemia creatinine up to 1.53, no IV access, patient refused triple-lumen, he was encouraged to drink more water, if kidney function is worsening will proceed with PICC line tomorrow. Bun 51, creatinine 1.32. Received midline placement morning, will be started on normal saline fluid at 100. 4. Essential hypertension: patient on Coreg. Patient's hydrochlorothiazide and lisinopril DC'd due to kidney function 5. Chronic back pain continue oral morphine 6. History of Nonischemic cardiomyopathy patient has had his AICD turned off 7. History of colon cancer status post bowel resection with colostomy reversal 8. Depression continue Lexapro 9. One episode of paroxysmal atrial fibrillation in the past. Not on any anticoagulation. Patient takes digoxin and coreg I performed an examination of the patient and discussed their management with the Nurse Practitioner. I have reviewed the Nurse Practitioner's notes and agree with the documented findings and plan of care
[2017-11-19 10:59] LABS: Albumin 3.3 g/dL (3.5-5.0); Calcium 8.7 mg/dL (8.4-10.2); Potassium 4.1 mmol/L (3.5-5.1); Total Bilirubin 0.4 mg/dL (0.2-1.3); Total Protein 5.4 g/dL (6.3-8.2)
[2017-11-19] MEDS: PANTOPRAZOLE 40 MG TABLET PO SCH (11:15)
--- NOTE | 2017-11-19 11:16 | CT ---
EXAMINATION TYPE: CT abdomen pelvis wo con DATE OF EXAM: 11/19/2017 COMPARISON: 11/14/2017 HISTORY: 72-year-old male abdominal Pain, leukocytosis CT DLP: 830 mGycm. Automated exposure control for dose reduction was used. TECHNIQUE: Contiguous axial scanning of the abdomen and pelvis without IV contrast. Coronal and sagit darshana reconstructions performed. FINDINGS: AICD leads are present, right atrial, right ventricular, and coronary sinus leads. Heart normal size without pericardial effusion. Strandy atelectasis/scarring in the lower lungs. Noncontrast appearance of the liver, gallbladder, right adrenal gland, small spleen, and atrophic glez creas shows no gross abnormality. Multiple cystic lesions within the kidneys measuring up to 5.8 cm on the right and 3.3 cm on the left . The lower pole of the left kidney is somewhat atrophic possibly secondary to accessory left renal a rtery supply. Moderate to severe atherosclerotic calcifications throughout the abdominal aorta and iliac arteries. There is a new severely dilated loop of small bowel in the right side of the abdomen measuring up to 5.3 cm in caliber. There is a staple line suggesting small bowel anastomosis just distally, refer to coronal images 32 and 44. Caliber change at this level. Fecalization of small bowel content here and stoppage of the oral contrast column. In addition, there is moderate to large stool burden with colon dilated up to 6.2 cm. There is a stap le line along the sigmoid colon with abnormal irregular wall thickening in this region, referred to a xial image 60 and 61. Additional abnormal nodularity along the anterior bladder wall, axial image 69 measuring 2.4 cm. Mild diffuse anasarca type changes. Trace abdominal ascites. No free air. Marked distention of the urinary bladder. Prostate gland is enlarged measuring 5.1 cm wide. No abnorm al fluid collection the pelvis. Bones: Degenerative changes at the hips, severe on the left. Additional degenerative changes througho ut the visualized spine. IMPRESSION: 1. A new markedly dilated loop of small bowel in the right side of the abdomen measures 5.3 cm with f ecalization of intraluminal content and stoppage of the oral contrast column. There is a staple line just distally from prior bowel anastomosis and apparent transition point here. Findings suggest small bowel obstruction. 2. The colon is also dilated measuring up to 6.1 cm. There is an additional anastomosis at the mid si gmoid. This may represent a second transition point with abnormal irregular soft tissue thickening he re. Neoplasm as a source of narrowing in not excluded especially given a 2.4 cm soft tissue nodule al narayan the anterior bladder wall, possible serosal implant or other mass. 3. Atrophic lower half left kidney could be secondary to renal artery stenosis of an accessory branch .
[2017-11-19] MEDS: MAGNESIUM HYDROXIDE 2,400 MG/10 ML CUP PO SCH (11:17)
--- NOTE | 2017-11-19 11:23 | CONS ---
CONSULTATION DATE OF SERVICE: 11/18/2017 REASON FOR CONSULTATION: Leukocytosis. HISTORY OF PRESENT ILLNESS: The patient is a 72-year-old male with a past medical history significant for colon cancer, status post bowel resection, colostomy with subsequent reversal. The patient presenting to the ER on 11/14/2017 with chief complaints of abdominal pain and constipation for almost a week. The patient did not have any bowel movement. The patient has been complaining of some vague lower abdominal pain, more of a colicky in nature 4 to 5 out of 10 and no radiation. The patient denies having any nausea , no vomiting. With these symptoms, the patient presented to the [facility] ER. The patient has been evaluated by the ER physician on arrival to the ER. The patient has been afebrile. However, his white count was elevated at 13.1 thousand. The patient did have a CT of abdomen and pelvis; however, that was completed without any oral or IV contrast, which did show bilateral renal cyst, colonic gaseous distention from the cecum to the sigmoid. No bowel obstruction or pneumatosis. The patient's white count continued to be getting worse and the patient has been managed with Levaquin and Flagyl. Infectious Disease was consulted for further recommendation of antibiotic therapy. The patient did mention that he did have a bowel movement yesterday. However, he was unable to tell me if was hard, soft or if has any bleeding per rectum. The patient denies having any nausea or vomiting. Denies having any chest pain or shortness of breath or cough. REVIEW OF SYSTEMS: CONSTITUTIONAL: Positive for weakness. No high-grade fever. EYES: No complaint. ENT: No complaint. RESPIRATORY: No complaint. CARDIOVASCULAR: No complaint. GENITOURINARY: No complaint. GASTROINTESTINAL: As per HPI. MUSCULOSKELETAL: No complaint. INTEGUMENTARY: No complaint. PSYCHOLOGICAL: No complaint. ENDOCRINE: No complaint. NEUROLOGICAL: No complaint. PAST MEDICAL HISTORY: His past medical history is significant for atrial fibrillation, heart failure, COPD, gastroesophageal reflux disease, osteoarthritis, cardiomyopathy, diverticulitis. PAST SURGICAL HISTORY: AICD placement, bowel resection and heart catheterization. SOCIAL HISTORY: Current everyday smoker . Denies drinking or any drug use. FAMILY HISTORY: Mother with history of breast cancer. Father history of diverticulitis. ALLERGIES: No known drug allergies. MEDICATION: Medications include the patient is currently on Levaquin, Flagyl, baclofen, Coreg, Lanoxin, lactulose, milk of magnesia, MS Contin, Protonix, MiraLAX. PHYSICAL EXAMINATION: On examination, blood pressure is 119/58 with a pulse of 57, temp is 97.5. He is 100% on room air. General description is an elderly male lying in bed in no distress. No tachypnea or accessory muscle of respiration use. HEENT examination shows no pallor or scleral icterus. Oral mucous membrane is dry. No pharyngeal erythema or thrush. NECK: Trachea is central. No thyromegaly. LUNGS: Unlabored breathing, clear to auscultation anteriorly. No wheeze or crackle. HEART: S1, S2. Regular rate and rhythm. No added sounds. ABDOMEN: Soft, no tenderness. No guarding or rigidity. EXTREMITIES: No edema of feet. SKIN EXAMINATION: No rash or mass palpable. NEUROLOGICAL: Patient is awake, alert, oriented x3. Mood and affect normal. LABS: Hemoglobin is 14.1, white count 17.1. BUN of 51, creatinine 1.32. Electrolytes have been normal. Urine was negative. No culture this admission. DIAGNOSTIC IMPRESSION AND PLAN: Patient with leukocytosis in a patient admitted to the hospital with abdominal pain and constipation. The patient did have previous history of a bowel resection, colostomy and subsequent reversal in a patient who did have abnormal CT; however that was done without any contrast; hence, not significantly useful and likely source is abdomen for this elevated white count. The patient has no other clinical focus of infection. PLAN: 1. We will obtain a CT abdomen and pelvis with oral contrast to better define any intraabdominal pathology. 2. Blood cultures x1 stat. 3. Discontinue the Levaquin and Flagyl. 4. We will start the patient on Unasyn 3 grams q.6 hours. 5. We will follow on his clinical condition and culture to further adjust medication if needed. Thank you for this consultation. Will follow this patient along with you. MMODL / IJN: [id number] / MTDD
[2017-11-19 11:47] LABS: Basophils % (A) 0 %; Eosinophils # (A) 0.3 k/uL (0-0.7); Eosinophils % (A) 2 %; Lymphocytes # (A) 0.9 k/uL (1.0-4.8); Lymphocytes % (A) 6 %; MCH 30.3 pg (25.0-35.0); MCHC 32.7 g/dL (31.0-37.0); MCV 92.6 fL (80.0-100.0); Mean Platelet Volume 8.6; Monocytes # (A) 0.6 k/uL (0-1.0); Monocytes % (A) 4 %; Neutrophils # (A) 12.6 k/uL (1.3-7.7); Neutrophils % (A) 87 %; Platelet Count 186 k/uL (150-450); RBC 4.64 m/uL (4.30-5.90); RDW 14.7 % (11.5-15.5); WBC 14.5 k/uL (3.8-10.6)
[2017-11-19] MEDS: LACTULOSE 20 GM/30 ML CUP PO PRN (15:44)
[2017-11-19] MEDS: BACLOFEN 10 MG TAB PO SCH (21:08)
[2017-11-19] MEDS: POLYETHYLENE GLYCOL 3350 17 GM POWD.PACK PO SCH (21:10)
[2017-11-19] MEDS ORDERED: HYDROmorphone 0.5 MG/0.5 ML SYRINGE IVP PRN (22:24)
[2017-11-19] MEDS ORDERED: HYDROmorphone 0.5 MG/0.5 ML SYRINGE ONE (23:40)
[2017-11-20 01:49] LABS: Glucose,Whole Blood 191 mg/dL (75-99)
[2017-11-20] MEDS ORDERED: HYDROmorphone 0.5 MG/0.5 ML SYRINGE ONE ×2 (02:45→03:17)
[2017-11-20] MEDS ORDERED: HYDROmorphone 0.5 MG/0.5 ML SYRINGE IM PRN (04:49)
[2017-11-20] MEDS: AMPICILLIN-SULBACTAM 3 GM in SODIUM CHLORIDE 0.9% 100 ML IVPB SCH ×5 (05:43→23:34)
[2017-11-20] MEDS: SODIUM CHLORIDE 0.9% 1,000 ML IV SCH ×3 (05:43→23:32)
[2017-11-20] MEDS: MORPHINE SULFATE ER 30 MG TABLET PO SCH ×3 (05:51→18:36)
[2017-11-20 08:36] LABS: Basophils % (A) 0 %; Eosinophils % (A) 0 %; HCT 47.7 % (39.0-53.0); HGB 15.6 gm/dL (13.0-17.5); Lymphocytes # (A) 0.6 k/uL (1.0-4.8); Lymphocytes % (A) 3 %; MCH 30.1 pg (25.0-35.0); MCHC 32.8 g/dL (31.0-37.0); MCV 91.9 fL (80.0-100.0); Mean Platelet Volume 8.6; Monocytes # (A) 0.5 k/uL (0-1.0); Monocytes % (A) 2 %; Neutrophils % (A) 94 %; Platelet Count 245 k/uL (150-450); RBC 5.19 m/uL (4.30-5.90); RDW 14.6 % (11.5-15.5); WBC 20.2 k/uL (3.8-10.6)
[2017-11-20] MEDS: CARVEDILOL 3.125 MG TAB PO SCH (08:37)
[2017-11-20] MEDS: DIGOXIN 250 MCG TAB PO SCH (08:37)
[2017-11-20] MEDS: PANTOPRAZOLE 40 MG TABLET PO SCH (08:37)
[2017-11-20] MEDS: MAGNESIUM HYDROXIDE 2,400 MG/10 ML CUP PO SCH (08:39)
[2017-11-20 08:55] LABS: Calcium 8.8 mg/dL (8.4-10.2)
--- NOTE | 2017-11-20 10:46 | P.PN ---
Subjective Progress Note Date: 11/20/17 This is a 72-year-old male with a known history of chronic back pain in which she takes oral morphine. He also has a history of nonischemic cardiomyopathy and his AICD was turned off, hypertension, colon cancer status post bowel resection with colostomy reversal and history of opiate-induced constipation. Patient presents to the emergency room with complaints of abdominal pain all over the abdomen. Initially in the ER report they reported vomiting and diarrhea. Patient reports that he's been feeling nauseous and constipated and has had no stools for about one week. Patient has had poor appetite. Patient is a poor historian. Computed tomography scan of the abdomen showing colonic gaseous distention from the cecum to the sigmoid. No bowel obstruction noted. Surgical consult placed. IV fluids have been ordered. Unfortunately patient has no IV access. And is a difficult IV start. Midline has been ordered. White count 13.1, BUN 48, creatinine 1.10. LFTs and amylase and lipase are normal. Patient denies any chest pain or shortness of breath. He admits to feeling hot and cold at times. No fever reported. He admits to passing gas. Denies any difficulty urinating. 11/16/2017 patient is alert and oriented 3 he had multiple bowel movements after he received Fleet enemas, abdominal pain has subsided there is no fever or chills no headache or dizziness no nausea or vomiting he is tolerating liquid diet well, he is asking for more food, white blood count has gone up from 14,000-17,000 today. Consultation for critical care has been initiated for triple-lumen placement patient was seen by Dr. Payne however patient refused to have any line placed. On 11/17/2017 patient is alert and oriented complaining of some abdominal discomfort otherwise denies any complaints no bowel movement in the last 24 hours, white blood count is improved from 17.0 down to 14.7, however kidney function has worsened was elevated BUN at 56 and elevated creatinine at 1.53 On 11/18/2017 patient is alert and oriented sitting in bed comfortably. Per nursing staff patient did have a bowel movement last night. Patient does state his abdominal discomfort has improved slightly. WBC this a.m. trending back up at 17.1. Awaiting infectious disease consultation. Patient remains on oral Levaquin and Flagyl. Blood cultures and urine cultures have been ordered. Per surgical services no intervention is needed, diet as tolerated and milk of magnesia given for constipation. Bun 51, creatinine 1.32. Per nursing staff patient does not have IV access at this time. Patient denies chest pain or shortness of breath. patient denies diarrhea nausea or vomiting. Denies burning with urination and frequency. On 11/19/2017 patient is alert and sitting in bed comfortably received a midline this morning. Antibiotics were switched per Dr. Raymundo to Unasyn that he will now receive through his midline. Patient also received normal saline at 100. Lab results Currently pending. CT of the abdomen and pelvis with oral contrast was ordered per Dr. Montero. Last Bowel movement was 2 days ago. Per nursing Patient had refused stool softners but will continue to encourage patient to take it. Urine and blood cultures pending. Patient denies chest pain or shortness of breath at this time. On 11/20/2017. Patient currently resting in bed comfortably. Per nursing staff patient midline that was placed yesterday has infiltrated and patient has no IV access. CT completed yesterday per Dr. Raymundo showing severely dilated loop of small bowel right-sided the abdomen measuring 5.3 cm in caliber is stable suggesting small bowel anastomosis. Patient was made nothing by mouth and surgical services have been reconsulted. White blood cell also increasing to 20.2. Infectious disease ordered Unasyn but with IV access lost he has been unable to get medication. Dr. Eddy per critical care has been consulted for possible triple-lumen line placement critical care management. Patient also has a history of paroxysmal atrial fibrillation. Heart rate irregular upon auscultation. EKG ordered and cardiology consult Objective - Vital Signs Vital signs: Vital Signs Temp 98.0 F 11/20/17 07:31 Pulse 105 H 11/20/17 07:31 Resp 20 11/20/17 07:31 BP 130/65 11/20/17 07:31 Pulse Ox 96 11/20/17 07:31 Intake & Output 11/19/17 11/20/17 11/20/17 18:59 06:59 18:59 Intake Total 550 Balance 550 Weight 57 kg 57 kg Intake: Intake, IV Titration 550 Amount Ampicillin-Sulbactam 3 gm 50 In Sodium Chloride 0.9% 100 ml @ 100 mls/hr IVPB Q6HR [facility] Rx#:[id number] Sodium Chloride 0.9% 1, 500 000 ml @ 100 mls/hr IV . Q10H [facility] Rx#:[id number] Other: Voiding Method Urinal # Voids 1 1 # Bowel Movements 1 1 - Exam Head normocephalic and atraumatic Neck supple no JVD no goiter Lungs clear to auscultation bilaterally no wheezing or crackles Heart regular rate and rhythm S1-S2, no rub or gallop Abdomen is soft nondistended positive bowel sounds diffuse abdominal tenderness Extremities no edema Neuro alert and orientated to 3 - Labs CBC & Chem 7: 11/20/17 07:34 11/20/17 07:34 Labs: Abnormal Lab Results - Last 24 Hours (Table) 11/19/17 11/19/17 11/20/17 Range/Units 08:13 11:03 01:47 WBC 14.5 H (3.8-10.6) k/uL Neutrophils # 12.6 H (1.3-7.7) k/uL Lymphocytes # 0.9 L (1.0-4.8) k/uL Sodium 134 L (137-145) mmol/L BUN 42 H (9-20) mg/dL Creatinine (0.66-1.25) mg/dL Glucose (74-99) mg/dL POC Glucose (mg/dL) 191 H (75-99) mg/dL Total Protein 5.4 L (6.3-8.2) g/dL Albumin 3.3 L (3.5-5.0) g/dL 11/20/1718 Range/Units 07:34 07:34 WBC 20.2 H (3.8-10.6) k/uL Neutrophils # 19.0 H (1.3-7.7) k/uL Lymphocytes # 0.6 L (1.0-4.8) k/uL Sodium 135 L (137-145) mmol/L BUN 46 H (9-20) mg/dL Creatinine 1.31 H (0.66-1.25) mg/dL Glucose 171 H (74-99) mg/dL POC Glucose (mg/dL) (75-99) mg/dL Total Protein (6.3-8.2) g/dL Albumin (3.5-5.0) g/dL Microbiology - Last 24 Hours (Table) 11/18/17 22:30 Urine Culture - Final Urine,Voided 11/18/17 12:20 Blood Culture - Preliminary Blood No Growth after 24 hours Assessment and Plan Assessment: 1. Abdominal pain with a known history of opioid-induced constipation: Computed tomography scan of the abdomen and pelvis show colonic gaseous distention from the cecum to the sigmoid. Surgical consult placed. Per surgical services no surgical intervention needed, diet as tolerated and milk of magnesia given for constipation. CT of the abdomen ordered per Dr. Raymundo. CT showing new marked dilated loop of small bowel in the right abdomen measures 5.3 cm with dilatation of intraluminal contents infarct or oral contrast. Surgical services have been consulted and patient made nothing by mouth. Per nursing staff midline yesterday has infiltrated the patient currently does not have any IV access. Dr. Eddy per critical care has been consulted for management and to obtain IV access. 2. Leukocytosis present on admission. Repeat white count, possibly reactive white blood count up today Will continue to monitor patient was started on oral Levaquin and Flagyl due to finding related to colon on computed tomography scan. WBC trending up at 17.1. Per Dr. Raymundo patient has been started on antibiotic Unasyn. Patient's white blood count increasing to 20.2. Dr. Eddy has been consulted to obtain IV access patient currently on Unasyn 3. Duration was acute renal failure due to prerenal azotemia creatinine up to 1.53, no IV access, patient refused triple-lumen, he was encouraged to drink more water, if kidney function is worsening will proceed with PICC line tomorrow. Bun 51, creatinine 1.32. Received midline placement morning, will be started on normal saline fluid at 100. Patient's creatinine trending up 1.31. 4. Essential hypertension: patient on Coreg. Patient's hydrochlorothiazide and lisinopril DC'd due to kidney function 5. Chronic back pain continue oral morphine 6. History of Nonischemic cardiomyopathy patient has had his AICD turned off 7. History of colon cancer status post bowel resection with colostomy reversal 8. Depression continue Lexapro 9. One episode of paroxysmal atrial fibrillation in the past. Not on any anticoagulation. Patient takes digoxin and coreg. Cardiology has been consulted for possible irregular rhythm. I performed an examination of the patient and discussed their management with the Nurse Practitioner. I have reviewed the Nurse Practitioner's notes and agree with the documented findings and plan of care
--- NOTE | 2017-11-20 10:48 | PN ---
PROGRESS NOTE DATE OF SERVICE: 11/19/2017 REASON FOR FOLLOWUP VISIT: Leukocytosis, abdominal source. INTERVAL HISTORY: The patient is afebrile. He just came back from a CT abdominal pelvis. Patient denies having any nausea, vomiting. Did have small bowel movement. Denies having any chest pain or shortness of breath or cough. PHYSICAL EXAMINATION: Blood pressure 128/60 with a pulse of 55, temperature 98.2, she is 98% on room air. General description is an elderly male, lying in bed in no distress. RESPIRATORY SYSTEM: Unlabored breathing, clear to auscultation anteriorly. HEART: S1, S2. Regular rate and rhythm. ABDOMEN: Soft, nontender. EXTREMITIES: No edema of the feet. LABS: Hemoglobin is 14, white count 14.5. CT abdominal pelvis completed, it shows possible obstruction with mild clear dilated loop of small bowel right-sided abdomen with colon dilated as well. DIAGNOSTIC IMPRESSION AND PLAN: Patient with leukocytosis, source is abdominal, patient admitted to hospital with constipation, now with a significant abdominal CT. Patient to be evaluated by General Surgery. Keep the patient on Unasyn at this point. Continue supportive care. MMODL / IJN: [id number] /
--- NOTE | 2017-11-20 12:17 | P.PN ---
Subjective Progress Note Date: 11/20/17 The patient is a 72-year-old male who had acute onset abdominal pain last night. He had lost IV access and I was notified by nursing for pain management. This morning, he is passing flatus. He had a bowel movement this morning. "I am thirsty!" "I do not want surgery." Patients abdominal pain has improved. CT of the abdomen pelvis was reviewed hence I am asked to re-evaluate him. Objective - Vital Signs Vital signs: Vital Signs Temp 98.0 F 11/20/17 07:31 Pulse 105 H 11/20/17 08:00 Resp 20 11/20/17 08:00 BP 130/65 11/20/17 07:31 Pulse Ox 96 11/20/17 07:31 Intake & Output 11/19/17 11/20/17 11/20/17 18:59 06:59 18:59 Intake Total 550 Output Total 2 Balance 550 -2 Weight 57 kg 57 kg Intake: Intake, IV Titration 550 Amount Ampicillin-Sulbactam 3 gm 50 In Sodium Chloride 0.9% 100 ml @ 100 mls/hr IVPB Q6HR [facility] Rx#:[id number] Sodium Chloride 0.9% 1, 500 000 ml @ 100 mls/hr IV . Q10H [facility] Rx#:[id number] Output: Stool 2 Other: Voiding Method Urinal Urinal # Voids 1 1 # Bowel Movements 1 1 - Exam ABDOMEN: Soft. Nondistended. No peritonitis. Minimal tenderness along the left lower abdominal to palpation. GENERAL: Well developed and in no acute distress. Pleasant. HEENT: No sclera icterus. Extraocular movements grossly intact. Dry buccal mucosa. Head is atraumatic, normocephalic. Hears conversational speech. No nasal drainage. NECK: Supple without lymphadenopathy. CHEST: Non-labored respirations and equal bilateral excursions. CARDIOVASCULAR: Regular rate and rhythm. Palpable 2+ radial pulses. MUSCULOSKELETAL: No clubbing, cyanosis or edema. NEUROLOGIC: No focal or lateralizing signs. PSYCH: Poor appropriate affect. Alert and oriented to person, place and time. SKIN: Good skin turgor. Well perfused. - Labs CBC & Chem 7: 11/20/17 07:34 11/20/17 07:34 Labs: Abnormal Lab Results - Last 24 Hours (Table) 11/20/17 11/20/1711/20/18 Range/Units 01:47 07:34 07:34 WBC 20.2 H (3.8-10.6) k/uL Neutrophils # 19.0 H (1.3-7.7) k/uL Lymphocytes # 0.6 L (1.0-4.8) k/uL Sodium 135 L (137-145) mmol/L BUN 46 H (9-20) mg/dL Creatinine 1.31 H (0.66-1.25) mg/dL Glucose 171 H (74-99) mg/dL POC Glucose (mg/dL) 191 H (75-99) mg/dL Microbiology - Last 24 Hours (Table) 11/18/17 22:30 Urine Culture - Final Urine,Voided 11/18/17 12:20 Blood Culture - Preliminary Blood No Growth after 24 hours - Imaging and Cardiology CT scan - abdomen: report reviewed, image reviewed CT scan - pelvis: report reviewed, image reviewed (Focal area of small bowel dilation at right lower quadrant with moderate stool burden. No free air.) Assessment and Plan (1) History of colostomy reversal Current Visit: No Status: Acute Code(s): IQT1818 - SNOMED Code(s): 564373044 (2) Constipation Current Visit: Yes Status: Acute Code(s): K59.00 - CONSTIPATION, UNSPECIFIED SNOMED Code(s): 36279896 (3) Small bowel obstruction Current Visit: Yes Status: Acute Code(s): K56.609 - UNSP INTESTNL OBST, UNSP TO PARTIAL VERSUS COMPLETE OBST SNOMED Code(s): 198604567 Plan: 1. Patient's abdominal pain had improved. 2. Patient does not want surgery. 3. May have clear liquid diet. 4. May benefit from midline for IV access.
[2017-11-20] MEDS: LACTULOSE 20 GM/30 ML CUP PO PRN (12:33)
--- NOTE | 2017-11-20 12:33 | CONS ---
CONSULTATION This is a 72-year-old male patient who has known nonischemic cardiomyopathy. He is to follow up in the office several years back and has not done so for the last 3 years. He has been battling colon cancer and now has METS and was admitted with an intestinal obstruction and is awaiting surgery. When I talked to him he was lying flat in bed. He looked comfortable. No respiratory distress. He denied any chest discomfort. No shortness of breath. He does not have any orthopnea or PND. He says he was very hungry, wanted to have some water, but he is obviously n.p.o. Past history of nonischemic cardiomyopathy and colon cancer with mets and admitted with intestinal obstruction. He has an ICD which has now been turned off because of his terminal condition and should not be turned back on obviously. This means that ICD will not fire inappropriately in response to RF energy during surgery. REVIEW OF SYSTEMS: Not available. He is a poor historian. Medication list was reviewed and is documented in the chart. His labs are reviewed. White count is elevated at 20,000. His electrolytes are normal. BUN is 46, creatinine is 1.3. PHYSICAL EXAMINATION: His blood pressure is 130/65 mmHg. Pulse rate is 105 beats per minute. He is afebrile. He is emaciated, breath sounds are reduced bilaterally. Heart sounds S1, S2 are soft. Abdomen is soft. Extremities are warm. IMPRESSION: 1. History of nonischemic cardiomyopathy, history of ICD implant, which has now been turned off on account of his terminal neoplastic condition. 2. No clinical evidence for acute heart failure at this time. If this gentleman needs surgery, you may proceed with surgery. Obviously, there is an elevated risk of cardiovascular events, preoperatively. His 12-lead ECG shows sinus tachycardia with a left bundle branch block. I would continue carvedilol. He should receive his cardiac medications today. I would continue carvedilol 3.125 mg twice daily. I would reduce the dose of digoxin to 0.125 mg p.o. daily and be careful with IV fluids administration and maintain a strict intake output chart and keep him in a relative negative fluid balance as long as vitals are stable. Please call us as needed. His ICD has been turned off, which means that it will not respond inappropriately to RF radiofrequency signals or cautery signals. Therefore, a magnet does not need to be placed. MMODL / IJN: [id number] /
--- NOTE | 2017-11-20 15:10 | P.CNPUL ---
History of Present Illness Consult date: 11/20/17 Reason for consult: other Chief complaint: Central venous access placement History of present illness: Tomas is a 72-year-old white male patient of Dr. Pat who was admitted to the hospital on 11/14/2017 for concerns of abdominal pain, nausea, vomiting, diarrhea. Initial CAT scan showed distended colon but no obstruction. Patient has had previous abdominal surgeries for his history of diverticulitis, and previous history of small bowel obstruction, colon cancer status post left colectomy with reversal of colostomy. Past medical history is also positive for opiate-induced constipation, nonischemic cardiomyopathy with AICD placement , which is currently turned off, hypertension, atrial fibrillation, congestive heart failure, COPD, GERD/reflux, osteoarthritis, chronic back and leg pain. Patient has been followed by surgery and infectious disease service. Patient has leukocytosis, which is worse on today's labs, acute kidney injury, which improved, and got slightly worse on today's labs. Patient has been having difficulty with have an IV access, currently has none. Midline venous catheter was placed in the left upper arm, and subsequently infiltrated and was discontinued. We were initially consult on this patient a few days ago in regards to placement of central venous catheter, however the patient was adamantly refusing. Today we are asked to see the patient again in regards to placement of a central venous catheter, as the IV access remains a problem. Patient is on empiric antibiotics in the form of Unasyn. Patient had another CT of abdomen and pelvis on 11/19/2017 in regards to increased white count, increasing renal profile, and it showed possible obstruction with mild clear dilated loop of small bowel on the right side of the abdomen. Patient was reevaluated by surgery, but he started passing movements and gas, no nausea, no vomiting, no abdominal pain. Patient was started on clear liquid diet, and he is tolerating it well. Review of Systems All systems: negative Constitutional: Denies chills, Denies fever Eyes: denies blurred vision, denies pain Ears, nose, mouth and throat: Denies headache, Denies sore throat Cardiovascular: Denies chest pain, Denies shortness of breath Respiratory: Denies cough Gastrointestinal: Denies abdominal pain, Denies diarrhea, Denies nausea, Denies vomiting Musculoskeletal: Denies myalgias Integumentary: Denies pruritus, Denies rash Neurological: Denies numbness, Denies weakness Psychiatric: Denies anxiety, Denies depression Endocrine: Denies fatigue, Denies weight change Past Medical History Past Medical History: Atrial Fibrillation, Heart Failure, COPD, GERD/Reflux, Osteoarthritis (OA) Additional Past Medical History / Comment(s): CHF, cardiomyopathy, chronic back and bilateral lower extremity pain and weakness, arthritis multiple joints, constipation d/t opiods, diverticulitis with bowel resection/colostomy then colostomy reversal, colon polyps, sepsis after colostomy reversal.ddd History of Any Multi-Drug Resistant Organisms: None Reported Past Surgical History: AICD, Bowel Resection, Heart Catheterization Additional Past Surgical History / Comment(s): BiV ICD but pt states it was not firing properly so wires were disconnected, bowel resection d/t diverticular disease per pt and had colostomy/reversal of colostomy, colonoscopy/polypectomy- benign, TURP, Past Anesthesia/Blood Transfusion Reactions: No Reported Reaction Type of Cardiac Device: AICD Device Placement Date:: 2007 Smoking Status: Current every day smoker - Past Family History Mother Family Medical History: Cancer Additional Family Medical History / Comment(s): Mother had breast cancer. She lived to be 94 yrs old. Father Additional Family Medical History / Comment(s): diverticulitis Medications and Allergies Home Medications Medication Instructions Recorded Confirmed Type Lisinopril [Prinivil] 5 mg PO BID 03/08/14 11/14/17 History Baclofen [Lioresal] 10 mg PO HS 05/29/16 11/14/17 History Digoxin 250 mcg PO DAILY 06/28/16 11/14/17 History Hydrochlorothiazide [Hydrodiuril] 25 mg PO BID 06/26/17 11/14/17 History Lactulose 20 gm PO DAILY PRN 06/26/17 11/14/17 History Morphine Sulfate [Ms Contin] 30 mg PO Q8H 06/26/17 11/14/17 History Escitalopram [Lexapro] 5 mg PO DAILY #30 tab 06/28/17 11/14/17 Rx Polyethylene Glycol 3350 [Miralax] 17 gm PO HS #30 powd.pack 06/28/17 11/14/17 Rx Carvedilol [Coreg] 3.125 mg PO DAILY 11/14/17 11/14/17 History Allergies Allergy/AdvReac Type Severity Reaction Status Date / Time No Known Allergies Allergy Verified 11/14/17 20:34 Physical Exam Vitals: Vital Signs Temp Pulse Resp BP Pulse Ox 11/20/17 08:00 105 H 20 11/20/17 07:31 98.0 F 105 H 20 130/65 96 11/19/17 22:41 85 16 11/19/17 20:28 98.1 F 85 16 121/74 98 11/19/17 14:52 98.2 F 65 16 128/60 98 Intake and Output 11/19/17 11/20/17 11/20/17 22:59 06:59 14:59 Intake Total 550 Output Total 2 Balance 550 -2 Intake: Intake, IV Titration 550 Amount Ampicillin-Sulbactam 3 gm 50 In Sodium Chloride 0.9% 100 ml @ 100 mls/hr IVPB Q6HR ROSAS Rx#:[id number] Sodium Chloride 0.9% 1, 500 000 ml @ 100 mls/hr IV . Q10H ROSAS Rx#:[id number] Output: Stool 2 Other: Voiding Method Urinal Urinal # Voids 1 # Bowel Movements 1 1 Weight 57 kg 57 kg GENERAL EXAM: Alert, cachectic, elderly white male comfortable in no apparent distress. HEAD: Normocephalic/atraumatic. EYES: Normal reaction of pupils, equal size. Conjunctiva pink, sclera white. NOSE: Clear with pink turbinates. THROAT: No erythema or exudates. NECK: No masses, no JVD, no thyroid enlargement, no adenopathy. CHEST: No chest wall deformity. Symmetrical expansion. LUNGS: Equal air entry with no crackles, wheeze, rhonchi or dullness. CVS: Regular rate and rhythm, normal S1 and S2, no gallops, no murmurs, no rubs ABDOMEN: Soft, nontender. Normal bowel sounds, there is a old mid abdominal surgical incision EXTREMITIES: No clubbing, no edema, no cyanosis, 2+ pulses and upper and lower extremities. MUSCULOSKELETAL: Muscle strength and tone normal. SPINE: No scoliosis or deformity SKIN: No rashes CENTRAL NERVOUS SYSTEM: Alert and oriented -3. No focal deficits, tone is normal in all 4 extremities. PSYCHIATRIC: Alert and oriented -3. Patient is somewhat irritable, and a bit reluctant to care Results - Laboratory Findings CBC and BMP: 11/20/17 07:34 11/20/17 07:34 Abnormal lab findings: Abnormal Labs 11/14/17 11/14/17 11/14/17 17:35 17:35 20:45 WBC 13.1 H Neutrophils # 11.6 H Lymphocytes # 0.8 L Sodium 136 L Potassium Carbon Dioxide BUN 48 H Creatinine Glucose 127 H POC Glucose (mg/dL) Calcium ALT 18 L Total Protein Albumin Ur Specific [place] 1.038 H Urine Protein 1+ H Urine Ketones 1+ H Urine Bacteria Rare H Urine Mucus Rare H 11/15/17 11/15/17 11/16/17 11:05 11:05 07:03 WBC 14.4 H 17.0 H Neutrophils # 13.0 H 15.5 H Lymphocytes # 0.8 L 0.8 L Sodium 135 L Potassium 3.4 L Carbon Dioxide BUN 42 H Creatinine Glucose 112 H POC Glucose (mg/dL) Calcium ALT Total Protein Albumin Ur Specific [place] Urine Protein Urine Ketones Urine Bacteria Urine Mucus 11/16/17 11/17/17 11/17/17 07:03 07:05 07:05 WBC 14.7 H Neutrophils # 13.0 H Lymphocytes # Sodium 135 L 132 L Potassium Carbon Dioxide 18 L BUN 45 H 56 H Creatinine 1.53 H Glucose POC Glucose (mg/dL) Calcium 8.1 L ALT 19 L Total Protein 5.2 L Albumin 3.0 L Ur Specific [place] Urine Protein Urine Ketones Urine Bacteria Urine Mucus 11/18/17 11/18/17 11/19/17 07:53 07:53 08:13 WBC 17.1 H Neutrophils # 14.7 H Lymphocytes # Sodium 133 L 134 L Potassium Carbon Dioxide BUN 51 H 42 H Creatinine 1.32 H Glucose 121 H POC Glucose (mg/dL) Calcium ALT 20 L Total Protein 5.6 L 5.4 L Albumin 3.3 L 3.3 L Ur Specific [place] Urine Protein Urine Ketones Urine Bacteria Urine Mucus 11/19/17 11/20/17 11/20/17 11:03 01:47 07:34 WBC 14.5 H 20.2 H Neutrophils # 12.6 H 19.0 H Lymphocytes # 0.9 L 0.6 L Sodium Potassium Carbon Dioxide BUN Creatinine Glucose POC Glucose (mg/dL) 191 H Calcium ALT Total Protein Albumin Ur Specific [place] Urine Protein Urine Ketones Urine Bacteria Urine Mucus 11/20/17 07:34 WBC Neutrophils # Lymphocytes # Sodium 135 L Potassium Carbon Dioxide BUN 46 H Creatinine 1.31 H Glucose 171 H POC Glucose (mg/dL) Calcium ALT Total Protein Albumin Ur Specific [place] Urine Protein Urine Ketones Urine Bacteria Urine Mucus - Diagnostic Findings Chest x-ray: report reviewed, image reviewed Additional studies: Results of the abdomen and pelvis CT reviewed Assessment and Plan Plan: Assessment: #1. Small bowel obstruction versus moderate fecal impaction and ileus, not requiring surgery #2. Leukocytosis likely related to abdominal source #3. Acute kidney injury, likely related to ATN, and small bowel obstruction #4. Difficulty obtaining IV access, and patient has been resistant to placement of central venous catheter #5. History of colon cancer, status post left colectomy and reversal of colostomy #6. History of ischemic cardiomyopathy, with placement of AICD, which is currently turned off #7. History of COPD #8. History of chronic back pain #9. History of atrial fibrillation, heart failure #10. Chronic and ongoing nicotine dependence Plan: The patient is very resistant to placement of a new venous access. After discussing the case with ID service is unclear if the patient will need an extended course of IV antibiotics. For that reason it is probably reasonable to consult interventional radiology for placement of a more long-term central venous access, like PICC line. I performed a history & physical examination of the patient and discussed their management with my nurse practitioner, Naty Mckeon. I reviewed the nurse practitioner's note and agree with the documented findings and plan of care. Lung sounds are diminished. The findings and the impression was discussed with the patient. I attest to the documentation by the nurse practitioner. Time with Patient: Greater than 30
[2017-11-20] MEDS ORDERED: HYDROmorphone 1 MG/ML 1 ML SYRINGE IVP PRN (17:53)
--- NOTE | 2017-11-20 20:17 | US ---
EXAMINATION TYPE: US venous doppler duplex UE LT DATE OF EXAM: 11/20/2017 COMPARISON: NONE CLINICAL HISTORY: dvt. Left arm edema. Exam limitations due to edema. SIDE PERFORMED: Left Left Arm: Negative for DVT No evidence of DVT of vessels imaged. Cephalic vein not seen due to edema. IMPRESSION: No evidence of deep venous thrombosis in the left arm.
[2017-11-20] MEDS: POLYETHYLENE GLYCOL 3350 17 GM POWD.PACK PO SCH ×2 (20:45→21:02)
[2017-11-20] MEDS: HYDROmorphone 1 MG/ML 1 ML SYRINGE IM PRN (20:45)
[2017-11-20] MEDS: BACLOFEN 10 MG TAB PO SCH (20:45)
[2017-11-20] MEDS: ZOLPIDEM 5 MG TAB PO PRN (23:06)
--- NOTE | 2017-11-20 23:15 | PN ---
PROGRESS NOTE DATE OF SERVICE: 11/20/2017 REASON FOR FOLLOWUP: Leukocytosis, abdominal source. INTERVAL HISTORY: The patient is afebrile. He has been breathing comfortably. The patient has lost his IV access and hence unable to get any antibiotics. The patient denies having any chest pain, shortness of breath or cough. No nausea, vomiting and no diarrhea. PHYSICAL EXAMINATION: Blood pressure 124/60 with a pulse of 83, temperature of 97.1. He is 98% on room air. General description is an elderly male lying in bed in no distress. RESPIRATORY SYSTEM: Unlabored breathing. Clear to auscultation anteriorly. HEART: S1, S2. Regular rate and rhythm. ABDOMEN: Soft. No tenderness. No guarding or rigidity. EXTREMITIES: No edema of the feet. LABS: Hemoglobin is 15.6, white count of 20.2, BUN of 46, creatinine 1.31. DIAGNOSTIC IMPRESSION AND PLAN: Patient with leukocytosis. Source is abdominal in a patient did have evidence of a small-bowel obstruction as well as dilatation of his large bowel. Surgery has seen the patient. Apparently he was refusing any surgery; hence no further workup has been recommended at this point. We are waiting for placement of his central line by Pulmonary or a PICC line placement to continue with Unasyn while watching his clinical course closely. Continue with supportive care. MMODL / IJN: [id number] /
[2017-11-21] MEDS: MORPHINE SULFATE ER 30 MG TABLET PO SCH ×3 (05:55→20:08)
[2017-11-21] MEDS: HYDROmorphone 1 MG/ML 1 ML SYRINGE IM PRN ×3 (05:56→19:18)
[2017-11-21] MEDS: AMPICILLIN-SULBACTAM 3 GM in SODIUM CHLORIDE 0.9% 100 ML IVPB SCH ×4 (06:04→20:12)
[2017-11-21 07:58] LABS: Basophils % (A) 0 %; Eosinophils # (A) 0.1 k/uL (0-0.7); Eosinophils % (A) 0 %; HCT 43.3 % (39.0-53.0); HGB 14.3 gm/dL (13.0-17.5); Lymphocytes # (A) 0.7 k/uL (1.0-4.8); Lymphocytes % (A) 3 %; MCH 30.3 pg (25.0-35.0); Mean Platelet Volume 8.4; Monocytes # (A) 0.8 k/uL (0-1.0); Monocytes % (A) 3 %; Neutrophils # (A) 21.7 k/uL (1.3-7.7); Neutrophils % (A) 93 %; Platelet Count 230 k/uL (150-450); RDW 14.7 % (11.5-15.5); WBC 23.4 k/uL (3.8-10.6)
[2017-11-21 08:03] LABS: INR 1.2 (<1.2); Prothrombin Time 11.1 sec (9.0-12.0)
[2017-11-21] MEDS: PANTOPRAZOLE 40 MG TABLET PO SCH (08:22)
[2017-11-21] MEDS: CARVEDILOL 3.125 MG TAB PO SCH (08:22)
[2017-11-21] MEDS: DIGOXIN 250 MCG TAB PO SCH (08:22)
[2017-11-21 08:24] LABS: Calcium 8.4 mg/dL (8.4-10.2)
[2017-11-21] MEDS: MAGNESIUM HYDROXIDE 2,400 MG/10 ML CUP PO SCH (08:24)
--- NOTE | 2017-11-21 11:48 | P.PN ---
Subjective Progress Note Date: 11/21/17 This is a 72-year-old male with a known history of chronic back pain in which she takes oral morphine. He also has a history of nonischemic cardiomyopathy and his AICD was turned off, hypertension, colon cancer status post bowel resection with colostomy reversal and history of opiate-induced constipation. Patient presents to the emergency room with complaints of abdominal pain all over the abdomen. Initially in the ER report they reported vomiting and diarrhea. Patient reports that he's been feeling nauseous and constipated and has had no stools for about one week. Patient has had poor appetite. Patient is a poor historian. Computed tomography scan of the abdomen showing colonic gaseous distention from the cecum to the sigmoid. No bowel obstruction noted. Surgical consult placed. IV fluids have been ordered. Unfortunately patient has no IV access. And is a difficult IV start. Midline has been ordered. White count 13.1, BUN 48, creatinine 1.10. LFTs and amylase and lipase are normal. Patient denies any chest pain or shortness of breath. He admits to feeling hot and cold at times. No fever reported. He admits to passing gas. Denies any difficulty urinating. 11/16/2017 patient is alert and oriented 3 he had multiple bowel movements after he received Fleet enemas, abdominal pain has subsided there is no fever or chills no headache or dizziness no nausea or vomiting he is tolerating liquid diet well, he is asking for more food, white blood count has gone up from 14,000-17,000 today. Consultation for critical care has been initiated for triple-lumen placement patient was seen by Dr. Payne however patient refused to have any line placed. On 11/17/2017 patient is alert and oriented complaining of some abdominal discomfort otherwise denies any complaints no bowel movement in the last 24 hours, white blood count is improved from 17.0 down to 14.7, however kidney function has worsened was elevated BUN at 56 and elevated creatinine at 1.53 On 11/18/2017 patient is alert and oriented sitting in bed comfortably. Per nursing staff patient did have a bowel movement last night. Patient does state his abdominal discomfort has improved slightly. WBC this a.m. trending back up at 17.1. Awaiting infectious disease consultation. Patient remains on oral Levaquin and Flagyl. Blood cultures and urine cultures have been ordered. Per surgical services no intervention is needed, diet as tolerated and milk of magnesia given for constipation. Bun 51, creatinine 1.32. Per nursing staff patient does not have IV access at this time. Patient denies chest pain or shortness of breath. patient denies diarrhea nausea or vomiting. Denies burning with urination and frequency. On 11/19/2017 patient is alert and sitting in bed comfortably received a midline this morning. Antibiotics were switched per Dr. Raymundo to Unasyn that he will now receive through his midline. Patient also received normal saline at 100. Lab results Currently pending. CT of the abdomen and pelvis with oral contrast was ordered per Dr. Montero. Last Bowel movement was 2 days ago. Per nursing Patient had refused stool softners but will continue to encourage patient to take it. Urine and blood cultures pending. Patient denies chest pain or shortness of breath at this time. On 11/20/2017. Patient currently resting in bed comfortably. Per nursing staff patient midline that was placed yesterday has infiltrated and patient has no IV access. CT completed yesterday per Dr. Raymundo showing severely dilated loop of small bowel right-sided the abdomen measuring 5.3 cm in caliber is stable suggesting small bowel anastomosis. Patient was made nothing by mouth and surgical services have been reconsulted. White blood cell also increasing to 20.2. Infectious disease ordered Unasyn but with IV access lost he has been unable to get medication. Dr. Surjit bean critical care has been consulted for possible triple-lumen line placement critical care management. Patient also has a history of paroxysmal atrial fibrillation. Heart rate irregular upon auscultation. EKG ordered and cardiology consult On 11/21/2017 patient is currently in bed agitated about everyone asking him if he wants to get a PICC line. Patient lost midline and IV access yesterday. White blood cell continuing to go up at 23.4. Dr. Raymundo recommending line placement to continue with Unasyn antibiotic infusion. Dr. Surjit bean critical care was consulted yesterday for possible triple-lumen line placement but patient refused. Discussed in depth with patient the risk of not getting IV antibiotics. Patient became agitated and stated he does not "want any line that they are not able to get one on him." Per nursing staff will reach out to and family about decisions. Primary care office called to address any DPO paperwork but none are reported on file. Patient refused any surgical intervention. Cardiology following for history of A. fib and ICD. Per cardiology ICD had been turned off previously. Objective - Vital Signs Vital signs: Vital Signs Temp 98.1 F 11/21/17 06:25 Pulse 96 11/21/17 06:25 Resp 16 11/21/17 06:25 BP 119/59 11/21/17 06:25 Pulse Ox 96 11/21/17 06:25 Intake & Output 11/20/17 11/21/17 11/21/17 18:59 06:59 18:59 Intake Total 1500 Output Total 4 Balance -4 1500 Weight 57 kg 57.5 kg Intake: Oral 1500 Output: Stool 4 Other: Voiding Method Urinal # Voids 1 1 # Bowel Movements 1 - Exam Head normocephalic and atraumatic Neck supple no JVD no goiter Lungs clear to auscultation bilaterally no wheezing or crackles Heart regular rate and rhythm S1-S2, no rub or gallop Abdomen is soft nondistended positive bowel sounds diffuse abdominal tenderness Extremities no edema Neuro alert and orientated to 3 - Labs CBC & Chem 7: 11/21/17 07:08 11/21/17 07:08 Labs: Abnormal Lab Results - Last 24 Hours (Table) 11/21/17 11/21/17 11/21/17 Range/Units 07:08 07:08 07:08 WBC 23.4 H (3.8-10.6) k/uL Neutrophils # 21.7 H (1.3-7.7) k/uL Lymphocytes # 0.7 L (1.0-4.8) k/uL INR 1.2 H (<1.2) Sodium 133 L (137-145) mmol/L BUN 49 H (9-20) mg/dL Glucose 120 H (74-99) mg/dL Microbiology - Last 24 Hours (Table) 11/18/17 12:20 Blood Culture - Preliminary Blood No Growth after 48 hours 11/18/17 22:30 Urine Culture - Final Urine,Voided Assessment and Plan Assessment: 1. Abdominal pain with a known history of opioid-induced constipation: Computed tomography scan of the abdomen and pelvis show colonic gaseous distention from the cecum to the sigmoid. Surgical consult placed. Per surgical services no surgical intervention needed, diet as tolerated and milk of magnesia given for constipation. CT of the abdomen ordered per Dr. Raymundo. CT showing new marked dilated loop of small bowel in the right abdomen measures 5.3 cm with dilatation of intraluminal contents infarct or oral contrast. Surgical services have been consulted and patient made nothing by mouth. Per nursing staff midline yesterday has infiltrated the patient currently does not have any IV access. Dr. Eddy per critical care has been consulted for management and to obtain IV access. Patient refused triple line by Dr. Eddy yesterday. Patient at this point is refusing PICC line. Discussed in depth about the risk of not receiving IV antibiotics. Nursing staff will discuss with family further decisions. Primary care office called no DPO paperwork on file. 2. Leukocytosis present on admission. Repeat white count, possibly reactive white blood count up today Will continue to monitor patient was started on oral Levaquin and Flagyl due to finding related to colon on computed tomography scan. WBC trending up at 17.1. Per Dr. Raymundo patient has been started on antibiotic Unasyn. Patient's white blood count increasing to 20.2. Dr. Eddy has been consulted to obtain IV access patient currently on Unasyn. She refused any IV access at this point white blood cell increasing to 23.4. 3. Duration was acute renal failure due to prerenal azotemia creatinine up to 1.53, no IV access, patient refused triple-lumen, he was encouraged to drink more water, if kidney function is worsening will proceed with PICC line tomorrow. Bun 51, creatinine 1.32. Received midline placement morning, will be started on normal saline fluid at 100. Patient's creatinine trending up 1.31. Creatinine improving at 1.23. 4. Essential hypertension: patient on Coreg. Patient's hydrochlorothiazide and lisinopril DC'd due to kidney function 5. Chronic back pain continue oral morphine 6. History of Nonischemic cardiomyopathy patient has had his AICD turned off 7. History of colon cancer status post bowel resection with colostomy reversal 8. Depression continue Lexapro 9. One episode of paroxysmal atrial fibrillation in the past. Not on any anticoagulation. Patient takes digoxin and coreg. Cardiology has been consulted for possible irregular rhythm. Cardiology consulted. Per cardiology ICD had been turned off previously and patient wanted to go hospice. EKG showing sinus tachycardia with a left bundle branch block per cardiology. I performed an examination of the patient and discussed their management with the Nurse Practitioner. I have reviewed the Nurse Practitioner's notes and agree with the documented findings and plan of care
[2017-11-21] MEDS: SODIUM CHLORIDE 0.9% 1,000 ML IV SCH ×2 (12:13→17:23)
--- NOTE | 2017-11-21 13:57 | P.PN ---
Subjective Progress Note Date: 11/21/17 Principal diagnosis: Central venous access placement, small bowel obstruction versus ileus versus fecal impaction Tomas is a 72-year-old white male patient of Dr. Pat who was admitted to the hospital on 11/14/2017 for concerns of abdominal pain, nausea, vomiting, diarrhea. Initial CAT scan showed distended colon but no obstruction. Patient has had previous abdominal surgeries for his history of diverticulitis, and previous history of small bowel obstruction, colon cancer status post left colectomy with reversal of colostomy. Past medical history is also positive for opiate-induced constipation, nonischemic cardiomyopathy with AICD placement , which is currently turned off, hypertension, atrial fibrillation, congestive heart failure, COPD, GERD/reflux, osteoarthritis, chronic back and leg pain. Patient has been followed by surgery and infectious disease service. Patient has leukocytosis, which is worse on today's labs, acute kidney injury, which improved, and got slightly worse on today's labs. Patient has been having difficulty with have an IV access, currently has none. Midline venous catheter was placed in the left upper arm, and subsequently infiltrated and was discontinued. We were initially consult on this patient a few days ago in regards to placement of central venous catheter, however the patient was adamantly refusing. Today we are asked to see the patient again in regards to placement of a central venous catheter, as the IV access remains a problem. Patient is on empiric antibiotics in the form of Unasyn. Patient had another CT of abdomen and pelvis on 11/19/2017 in regards to increased white count, increasing renal profile, and it showed possible obstruction with mild clear dilated loop of small bowel on the right side of the abdomen. Patient was reevaluated by surgery, but he started passing movements and gas, no nausea, no vomiting, no abdominal pain. Patient was started on clear liquid diet, and he is tolerating it well. On 11/21/2017 patient is seen in follow-up, yesterday he has refused placement of central venous catheter, and he is not refusing the PICC line placement as well. As a matter fact he just wants to be "left alone". He does not seem to want any further medical treatment other than pain medications. He is complaining of some abdominal pain today, his bowel sounds are hypoactive, but there has been no vomiting. He states he is able to pass some flatus. His abdomen is soft, nondistended. He denies nausea. Vital signs remain stable, he is on room air with a pulse ox of 96%. He does not seem to want any further medical interventions. We will sign off at this time, and see the patient on as -needed basis. I think it is reasonable to discuss further goals of care with the patient's family and the patient, and make appropriate arrangements. Objective - Vital Signs Vital signs: Vital Signs Temp 98.1 F 11/21/17 06:25 Pulse 96 11/21/17 06:25 Resp 16 11/21/17 06:25 BP 119/59 11/21/17 06:25 Pulse Ox 96 11/21/17 06:25 Intake & Output 11/20/17 11/21/17 11/21/17 18:59 06:59 18:59 Intake Total 1500 Output Total 4 Balance -4 1500 Weight 57 kg 57.5 kg Intake: Oral 1500 Output: Stool 4 Other: Voiding Method Urinal Diaper Incontinent # Voids 1 1 # Bowel Movements 1 - Exam GENERAL EXAM: Alert, cachectic, elderly white male comfortable in no apparent distress. HEAD: Normocephalic/atraumatic. EYES: Normal reaction of pupils, equal size. Conjunctiva pink, sclera white. NOSE: Clear with pink turbinates. THROAT: No erythema or exudates. NECK: No masses, no JVD, no thyroid enlargement, no adenopathy. CHEST: No chest wall deformity. Symmetrical expansion. LUNGS: Equal air entry with no crackles, wheeze, rhonchi or dullness. CVS: Regular rate and rhythm, normal S1 and S2, no gallops, no murmurs, no rubs ABDOMEN: Soft, nontender. Normal bowel sounds, there is a old mid abdominal surgical incision EXTREMITIES: No clubbing, no edema, no cyanosis, 2+ pulses and upper and lower extremities. MUSCULOSKELETAL: Muscle strength and tone normal. SPINE: No scoliosis or deformity SKIN: No rashes CENTRAL NERVOUS SYSTEM: Alert and oriented -3. No focal deficits, tone is normal in all 4 extremities. PSYCHIATRIC: Alert and oriented -3. Patient is somewhat irritable, and a bit reluctant to care - Labs CBC & Chem 7: 11/21/17 07:08 11/21/17 07:08 Labs: Abnormal Lab Results - Last 24 Hours (Table) 11/21/17 11/21/17 11/21/17 Range/Units 07:08 07:08 07:08 WBC 23.4 H (3.8-10.6) k/uL Neutrophils # 21.7 H (1.3-7.7) k/uL Lymphocytes # 0.7 L (1.0-4.8) k/uL INR 1.2 H (<1.2) Sodium 133 L (137-145) mmol/L BUN 49 H (9-20) mg/dL Glucose 120 H (74-99) mg/dL Microbiology - Last 24 Hours (Table) 11/18/17 12:20 Blood Culture - Preliminary Blood No Growth after 48 hours 11/18/17 22:30 Urine Culture - Final Urine,Voided Assessment and Plan Plan: Assessment: #1. Small bowel obstruction versus moderate fecal impaction and ileus, not requiring surgery #2. Leukocytosis likely related to abdominal source #3. Acute kidney injury, likely related to ATN, and small bowel obstruction #4. Difficulty obtaining IV access, and patient has been resistant to placement of central venous catheter #5. History of colon cancer, status post left colectomy and reversal of colostomy #6. History of ischemic cardiomyopathy, with placement of AICD, which is currently turned off #7. History of COPD #8. History of chronic back pain #9. History of atrial fibrillation, heart failure #10. Chronic and ongoing nicotine dependence Plan: Patient seems to be resistant to all medical treatment now, he just was to be "left alone", does not want antibiotics, does not want IV fluids, does not want surgery. Seems to be having some increased abdominal discomfort today, but no nausea, no vomiting, he states he is passing some flatus. He just wants something for pain. Goals of treatment need to be discussed with the patient and the family, and appropriate arrangements will need to be made based on that. We will sign off at this time, thank you for this consultation. I performed a history & physical examination of the patient and discussed their management with my nurse practitioner, Naty Mckeon. I reviewed the nurse practitioner's note and agree with the documented findings and plan of care. Lung sounds are diminished. The findings and the impression was discussed with the patient. I attest to the documentation by the nurse practitioner. Time with Patient: Less than 30
--- NOTE | 2017-11-21 18:46 | P.PN ---
Subjective Progress Note Date: 11/21/17 The patient is a 72-year-old male with history of previous abdominal pain. He is passing flatus and having bowel movements. No acute abdominal per patient. Objective - Vital Signs Vital signs: Vital Signs Temp 98.1 F 11/21/17 15:40 Pulse 91 11/21/17 15:40 Resp 22 11/21/17 15:40 BP 130/62 11/21/17 15:40 Pulse Ox 97 11/21/17 15:40 Intake & Output 11/20/17 11/21/17 11/21/17 18:59 06:59 18:59 Intake Total 1500 Output Total 4 Balance -4 1500 Weight 57 kg 57.5 kg Intake: Oral 1500 Output: Stool 4 Other: Voiding Method Urinal Diaper Incontinent # Voids 1 1 2 # Bowel Movements 1 - Exam ABDOMEN: Soft. Nondistended. No peritonitis. GENERAL: Well developed and in no acute distress. Pleasant. HEENT: No sclera icterus. Extraocular movements grossly intact. Head is atraumatic, normocephalic. Hears conversational speech. No nasal drainage. NECK: Supple without lymphadenopathy. CHEST: Non-labored respirations and equal bilateral excursions. CARDIOVASCULAR: Palpable 2+ radial pulses. MUSCULOSKELETAL: No clubbing, cyanosis or edema. NEUROLOGIC: No focal or lateralizing signs. PSYCH: Alert and oriented to person, place and time. SKIN: Good skin turgor. Well perfused. - Labs CBC & Chem 7: 11/21/17 07:08 11/21/17 07:08 Labs: Abnormal Lab Results - Last 24 Hours (Table) 11/21/17 11/21/17 11/21/17 Range/Units 07:08 07:08 07:08 WBC 23.4 H (3.8-10.6) k/uL Neutrophils # 21.7 H (1.3-7.7) k/uL Lymphocytes # 0.7 L (1.0-4.8) k/uL INR 1.2 H (<1.2) Sodium 133 L (137-145) mmol/L BUN 49 H (9-20) mg/dL Glucose 120 H (74-99) mg/dL Microbiology - Last 24 Hours (Table) 11/18/17 12:20 Blood Culture - Preliminary Blood No Growth after 72 hours Assessment and Plan (1) History of colostomy reversal Current Visit: No Status: Acute Code(s): MSF3704 - SNOMED Code(s): 677085709 (2) Constipation Current Visit: Yes Status: Acute Code(s): K59.00 - CONSTIPATION, UNSPECIFIED SNOMED Code(s): 63085104 (3) Small bowel obstruction Current Visit: Yes Status: Acute Code(s): K56.609 - UNSP INTESTNL OBST, UNSP TO PARTIAL VERSUS COMPLETE OBST SNOMED Code(s): 265857605 Plan: 1. He is doing fair from his abdominal pain. 2. No acute surgical intervention.
[2017-11-21] MEDS: BACLOFEN 10 MG TAB PO SCH (20:08)
[2017-11-21] MEDS: ZOLPIDEM 5 MG TAB PO PRN (20:08)
[2017-11-21] MEDS: POLYETHYLENE GLYCOL 3350 17 GM POWD.PACK PO SCH (20:10)
--- NOTE | 2017-11-21 21:13 | PN ---
PROGRESS NOTE DATE OF SERVICE: 11/21/2017. REASON FOR FOLLOWUP: Leukocytosis with small-bowel obstruction, source possibly abdominal. INTERVAL HISTORY: The patient is afebrile, has been complaining of abdominal pain. No nausea, no vomiting. The patient has been refusing placement of a PICC line or any surgical intervention. No bowel movement. EXAMINATION: Blood pressure 130/52 with a pulse of 91, temperature 98.1. He is 97% on room air. General description is an elderly male lying in bed in no distress. HEENT: Shows no pallor or scleral icterus. Oral mucosa membranes are dry. Lungs unlabored breathing. Clear to auscultation anteriorly. Heart S1, S2. Regular rate and rhythm. Abdomen soft, mild drainage. No guarding. No rigidity. LABS: White count 23.4 with a BUN of 49 and creatinine 1.23. Blood culture as well as a urine culture have been negative. DIAGNOSTIC IMPRESSION AND PLAN: Patient with leukocytosis, source was abdominal, possible anastomosis cell obstruction. The patient did have significant distention of his small bowel as the CT was reviewed with . Unfortunately the patient has been refusing any surgical intervention or a PICC line for IV access as the patient unable to get any antibiotic in the IV. Hospice may be a better option in view of his refusing his care. This was communicated and discussed with the admitting team. Continue supportive care. LEWIS / EDELN: [id number] /
[2017-11-21] MEDS: LEVOFLOXACIN 500 MG TAB PO SCH (21:21)
[2017-11-21] MEDS: metroNIDAZOLE 500 MG TAB PO SCH (21:22)
[2017-11-22] MEDS ORDERED: HYDROmorphone 1 MG/ML 1 ML SYRINGE ONE (02:45)
[2017-11-22] MEDS: SODIUM CHLORIDE 0.9% 1,000 ML IV SCH ×2 (04:53→12:53)
[2017-11-22] MEDS: MORPHINE SULFATE ER 30 MG TABLET PO SCH ×3 (04:54→20:03)
[2017-11-22] MEDS: AMPICILLIN-SULBACTAM 3 GM in SODIUM CHLORIDE 0.9% 100 ML IVPB SCH ×3 (04:54→16:39)
[2017-11-22] MEDS: HYDROmorphone 1 MG/ML 1 ML SYRINGE IM PRN ×3 (05:16→12:53)
[2017-11-22] MEDS: PANTOPRAZOLE 40 MG TABLET PO SCH (07:33)
[2017-11-22] MEDS: CARVEDILOL 6.25 MG TAB PO SCH (07:34)
[2017-11-22] MEDS: metroNIDAZOLE 500 MG TAB PO SCH ×3 (07:34→22:02)
[2017-11-22] MEDS: DIGOXIN 250 MCG TAB PO SCH (07:34)
[2017-11-22] MEDS: MAGNESIUM HYDROXIDE 2,400 MG/10 ML CUP PO SCH (07:36)
[2017-11-22 08:17] LABS: Calcium 8.1 mg/dL (8.4-10.2)
[2017-11-22 08:27] LABS: Potassium 4.4 mmol/L (3.5-5.1)
[2017-11-22 08:45] LABS: Basophils % (A) 0 %; Eosinophils # (A) 0.1 k/uL (0-0.7); Eosinophils % (A) 0 %; HCT 43.5 % (39.0-53.0); HGB 14.3 gm/dL (13.0-17.5); Lymphocytes # (A) 0.8 k/uL (1.0-4.8); Lymphocytes % (A) 5 %; MCHC 32.8 g/dL (31.0-37.0); MCV 94.7 fL (80.0-100.0); Mean Platelet Volume 8.8; Monocytes # (A) 0.9 k/uL (0-1.0); Monocytes % (A) 6 %; Neutrophils # (A) 14.2 k/uL (1.3-7.7); Neutrophils % (A) 88 %; Platelet Count 181 k/uL (150-450); RDW 14.7 % (11.5-15.5); WBC 16.1 k/uL (3.8-10.6)
[2017-11-22 11:00] VITALS: BMI 18.1
--- NOTE | 2017-11-22 11:23 | P.PN ---
Subjective Progress Note Date: 11/22/17 This is a 72-year-old male with a known history of chronic back pain in which she takes oral morphine. He also has a history of nonischemic cardiomyopathy and his AICD was turned off, hypertension, colon cancer status post bowel resection with colostomy reversal and history of opiate-induced constipation. Patient presents to the emergency room with complaints of abdominal pain all over the abdomen. Initially in the ER report they reported vomiting and diarrhea. Patient reports that he's been feeling nauseous and constipated and has had no stools for about one week. Patient has had poor appetite. Patient is a poor historian. Computed tomography scan of the abdomen showing colonic gaseous distention from the cecum to the sigmoid. No bowel obstruction noted. Surgical consult placed. IV fluids have been ordered. Unfortunately patient has no IV access. And is a difficult IV start. Midline has been ordered. White count 13.1, BUN 48, creatinine 1.10. LFTs and amylase and lipase are normal. Patient denies any chest pain or shortness of breath. He admits to feeling hot and cold at times. No fever reported. He admits to passing gas. Denies any difficulty urinating. 11/16/2017 patient is alert and oriented 3 he had multiple bowel movements after he received Fleet enemas, abdominal pain has subsided there is no fever or chills no headache or dizziness no nausea or vomiting he is tolerating liquid diet well, he is asking for more food, white blood count has gone up from 14,000-17,000 today. Consultation for critical care has been initiated for triple-lumen placement patient was seen by Dr. Payne however patient refused to have any line placed. On 11/17/2017 patient is alert and oriented complaining of some abdominal discomfort otherwise denies any complaints no bowel movement in the last 24 hours, white blood count is improved from 17.0 down to 14.7, however kidney function has worsened was elevated BUN at 56 and elevated creatinine at 1.53 On 11/18/2017 patient is alert and oriented sitting in bed comfortably. Per nursing staff patient did have a bowel movement last night. Patient does state his abdominal discomfort has improved slightly. WBC this a.m. trending back up at 17.1. Awaiting infectious disease consultation. Patient remains on oral Levaquin and Flagyl. Blood cultures and urine cultures have been ordered. Per surgical services no intervention is needed, diet as tolerated and milk of magnesia given for constipation. Bun 51, creatinine 1.32. Per nursing staff patient does not have IV access at this time. Patient denies chest pain or shortness of breath. patient denies diarrhea nausea or vomiting. Denies burning with urination and frequency. On 11/19/2017 patient is alert and sitting in bed comfortably received a midline this morning. Antibiotics were switched per Dr. Raymundo to Unasyn that he will now receive through his midline. Patient also received normal saline at 100. Lab results Currently pending. CT of the abdomen and pelvis with oral contrast was ordered per Dr. Montero. Last Bowel movement was 2 days ago. Per nursing Patient had refused stool softners but will continue to encourage patient to take it. Urine and blood cultures pending. Patient denies chest pain or shortness of breath at this time. On 11/20/2017. Patient currently resting in bed comfortably. Per nursing staff patient midline that was placed yesterday has infiltrated and patient has no IV access. CT completed yesterday per Dr. Raymundo showing severely dilated loop of small bowel right-sided the abdomen measuring 5.3 cm in caliber is stable suggesting small bowel anastomosis. Patient was made nothing by mouth and surgical services have been reconsulted. White blood cell also increasing to 20.2. Infectious disease ordered Unasyn but with IV access lost he has been unable to get medication. Dr. Surjit bean critical care has been consulted for possible triple-lumen line placement critical care management. Patient also has a history of paroxysmal atrial fibrillation. Heart rate irregular upon auscultation. EKG ordered and cardiology consult On 11/21/2017 patient is currently in bed agitated about everyone asking him if he wants to get a PICC line. Patient lost midline and IV access yesterday. White blood cell continuing to go up at 23.4. Dr. Raymundo recommending line placement to continue with Unasyn antibiotic infusion. Dr. Surjit bean critical care was consulted yesterday for possible triple-lumen line placement but patient refused. Discussed in depth with patient the risk of not getting IV antibiotics. Patient became agitated and stated he does not "want any line that they are not able to get one on him." Per nursing staff will reach out to and family about decisions. Primary care office called to address any DPO paperwork but none are reported on file. Patient refused any surgical intervention. Cardiology following for history of A. fib and ICD. Per cardiology ICD had been turned off previously. 11/22/2017 patient is now asking for IV to be placed. He is agreeable for further treatment at this point. Pulmonary service has been consulted for triple-lumen placement. Discussed with nursing staff to have consent signed and Belle before critical care even is up to the floor to discuss triple-lumen placement. Patient still needs IV fluids. Creatinine 1.10 however sodium is continued to decrease at 128. White count improved from 23.4-16.1. He is still requiring antibiotics. Doppler was negative for DVT of the left arm. CEA elevated at 6.7. Patient is having small bowel movements and is passing gas. No nausea or vomiting. Denies any chest pain or shortness of breath. Denies any difficulty urinating. He is still complaining of abdominal pain. Objective - Vital Signs Vital signs: Vital Signs Temp 98.0 F 11/22/17 05:30 Pulse 83 11/22/17 05:30 Resp 20 11/22/17 05:30 BP 134/62 11/22/17 05:30 Pulse Ox 97 11/22/17 05:30 Intake & Output 11/21/17 11/22/17 11/22/17 18:59 06:59 18:59 Intake Total 450 Balance 450 Weight 57.2 kg 57.2 kg Intake: Oral 450 Other: Voiding Method Diaper Diaper Incontinent Incontinent # Voids 2 - Exam Head normocephalic Neck supple Lungs clear to auscultation bilaterally no wheezing or crackles Heart regular rate and rhythm S1-S2, no rub or gallop Abdomen is soft diffuse tenderness distended positive bowel sounds no hepatosplenomegaly Extremities no edema Neuro alert and orientated to 3 - Labs CBC & Chem 7: 11/22/17 07:35 11/22/17 07:35 Labs: Abnormal Lab Results - Last 24 Hours (Table) 11/21/17 11/22/17 11/22/17 Range/Units 07:08 07:35 07:35 WBC 16.1 H (3.8-10.6) k/uL Neutrophils # 14.2 H (1.3-7.7) k/uL Lymphocytes # 0.8 L (1.0-4.8) k/uL Sodium 128 L (137-145) mmol/L Chloride 93 L (98-107) mmol/L BUN 51 H (9-20) mg/dL Glucose 107 H (74-99) mg/dL Calcium 8.1 L (8.4-10.2) mg/dL Carcinoembryonic Ag 6.7 H (0.0-4.9) ng/mL Microbiology - Last 24 Hours (Table) 11/18/17 12:20 Blood Culture - Preliminary Blood No Growth after 72 hours Assessment and Plan Assessment: 1. Abdominal pain with a known history of opioid-induced constipation: Evidence of small bowel obstruction on computed tomography scan. Followed by surgical service. No surgical intervention at this time. 2. Leukocytosis with abdominal source: Seen by infectious disease they had recommended IV antibiotics. Patient does not have IV access and had refused IV. Now agreeable to IV access. At this time he is only on oral Levaquin and Flagyl. 3. acute renal failure due to prerenal azotemia creatinine: Patient had refused IV access during this admission. Creatinine is showing improvement with oral hydration. Creatinine has decreased from 1.23-1.10. Patient still would benefit from IV fluids 4. Essential hypertension: patient on Coreg. Patient's hydrochlorothiazide and lisinopril DC'd due to kidney function 5. Chronic back pain continue oral morphine 6. History of Nonischemic cardiomyopathy patient has had his AICD turned off 7. History of colon cancer status post bowel resection with colostomy reversal 8. Depression continue Lexapro 9. One episode of paroxysmal atrial fibrillation in the past. Not on any anticoagulation. Patient takes digoxin and coreg. Cardiology has been consulted for possible irregular rhythm. Cardiology consulted. Per cardiology ICD had been turned off previously and patient wanted to go hospice. EKG showing sinus tachycardia with a left bundle branch block per cardiology. 10. Hyponatremia secondary to dehydration: Sodium continues to worsen at 128. Patient now agreeable to IV access. Critical care has been reconsulted for triple-lumen placement for IV hydration and IV antibiotics I performed an examination of the patient and discussed their management with the physician Security Guard Dispatcher. I have reviewed the Physician Security Guard Dispatcher's notes and agree with the documented findings and plan of care
--- NOTE | 2017-11-22 13:14 | PCN ---
PROCEDURE NOTE OPERATIVE REPORT: Placement of a right femoral triple-lumen catheter. PREOPERATIVE DIAGNOSIS: Small bowel obstruction, leukocytosis, and abdominal pain. POSTOPERATIVE DIAGNOSIS: Small bowel obstruction, leukocytosis and abdominal pain. ANESTHESIA USED: 2 mL of 1% lidocaine. PROCEDURE: The patient was placed in the supine position, the area of the right groin was prepared in a sterile fashion and drapes were applied. The area was locally anesthetized with 2 mL of 1% lidocaine. Then, the right femoral vein was easily cannulated, and a guidewire was placed. The area of the skin was dilated using a scalpel and using a dilator. Then a standard triple-lumen catheter was inserted over the guidewire, and the guidewire was removed. Good blood flow was noted in the 3 different ports of the triple-lumen catheter. No evidence of any immediate complication. Line was secured using 3.0 silk sutures. MMODL / IJN: [id number] /
[2017-11-22] MEDS: LEVOFLOXACIN 500 MG TAB PO SCH (16:34)
[2017-11-22] MEDS: HYDROmorphone 1 MG/ML 1 ML SYRINGE IVP PRN ×2 (16:34→19:21)
--- NOTE | 2017-11-22 18:11 | PN ---
PROGRESS NOTE DATE OF SERVICE: 11/22/2017 REASON FOR FOLLOWUP: Leukocytosis, abdominal source, in a patient who did have possible small bowel obstruction. INTERVAL HISTORY: The patient is afebrile. The patient finally agreed and did have a central line placed by carport erector. The patient is complaining of some abdominal pain, though controlled with pain medication. No nausea or vomiting. Currently on clear liquid diet. He did have small bowel movement with no bleeding per rectum. PHYSICAL EXAMINATION: Blood pressure 103/63 with a pulse of 79, temperature 97.9. He is 95% on room air. General description is an elderly male lying in bed in no distress. RESPIRATORY SYSTEM: Unlabored breathing. Clear to auscultation anteriorly. HEART: S1, S2. Regular rate and rhythm. ABDOMEN: Soft. Mildly distended. No guarding or rigidity. EXTREMITIES: No edema of the feet. LABS: Hemoglobin is 14.3, white count 16.1. BUN of 51, creatinine 1.10. DIAGNOSTIC IMPRESSION AND PLAN: Patient with leukocytosis. Source is abdominal. The patient did have a small bowel obstruction with significant distention of the small bowel loops. Was on Unasyn. The patient was refusing an IV but finally got a central line. Will continue with Unasyn at this point while waiting for his ileus to resolve. Continue with supportive care. MMODL / IJN: [id number] /
[2017-11-22] MEDS: ZOLPIDEM 5 MG TAB PO PRN (20:03)
[2017-11-22] MEDS: POLYETHYLENE GLYCOL 3350 17 GM POWD.PACK PO SCH (20:03)
[2017-11-22] MEDS: BACLOFEN 10 MG TAB PO SCH (20:04)
[2017-11-22] MEDS: HEPARIN SODIUM,PORCINE 5,000 UNIT/ML 1 ML VIAL SQ SCH (20:04)
[2017-11-22] MEDS: ONDANSETRON 4 MG/2 ML VIAL IVP PRN (21:40)
[2017-11-22] MEDS: PANTOPRAZOLE 40 MG/10 ML VIAL IVP SCH (21:58)
[2017-11-23] MEDS: HYDROmorphone 1 MG/ML 1 ML SYRINGE IVP PRN ×5 (00:55→21:53)
[2017-11-23] MEDS: SODIUM CHLORIDE 0.9% 1,000 ML IV SCH ×3 (00:55→21:57)
[2017-11-23] MEDS: AMPICILLIN-SULBACTAM 3 GM in SODIUM CHLORIDE 0.9% 100 ML IVPB SCH ×4 (00:56→18:13)
[2017-11-23] MEDS: MORPHINE SULFATE ER 30 MG TABLET PO SCH ×3 (03:40→21:59)
[2017-11-23 07:54] LABS: Basophils % (A) 0 %; Eosinophils % (A) 0 %; HCT 40.2 % (39.0-53.0); HGB 13.3 gm/dL (13.0-17.5); Lymphocytes # (A) 0.7 k/uL (1.0-4.8); Lymphocytes % (A) 5 %; MCH 29.9 pg (25.0-35.0); MCV 90.8 fL (80.0-100.0); Mean Platelet Volume 8.4; Monocytes # (A) 0.6 k/uL (0-1.0); Monocytes % (A) 5 %; Neutrophils # (A) 11.7 k/uL (1.3-7.7); Neutrophils % (A) 89 %; Platelet Count 194 k/uL (150-450); RBC 4.43 m/uL (4.30-5.90); RDW 14.6 % (11.5-15.5); WBC 13.1 k/uL (3.8-10.6)
[2017-11-23 08:27] LABS: Albumin 2.8 g/dL (3.5-5.0); Calcium 7.6 mg/dL (8.4-10.2); Potassium 3.7 mmol/L (3.5-5.1); Total Bilirubin 0.7 mg/dL (0.2-1.3); Total Protein 4.9 g/dL (6.3-8.2)
[2017-11-23] MEDS: CARVEDILOL 6.25 MG TAB PO SCH (09:00)
[2017-11-23] MEDS: ONDANSETRON 4 MG/2 ML VIAL IVP PRN (09:00)
[2017-11-23] MEDS: DIGOXIN 250 MCG TAB PO SCH (09:00)
[2017-11-23] MEDS: metroNIDAZOLE 500 MG TAB PO SCH (09:01)
[2017-11-23] MEDS: MAGNESIUM HYDROXIDE 2,400 MG/10 ML CUP PO SCH (09:01)
[2017-11-23] MEDS: HEPARIN SODIUM,PORCINE 5,000 UNIT/ML 1 ML VIAL SQ SCH ×2 (09:03→21:58)
[2017-11-23] MEDS: PANTOPRAZOLE 40 MG/10 ML VIAL IVP SCH (09:03)
--- NOTE | 2017-11-23 10:11 | P.GSCN ---
History of Present Illness Consult date: 11/23/17 Reason for Consult: Small bowel obstruction History of present illness: The patient had complaints of nausea vomiting last night. Apparently he was being followed by Dr. Sharma last week. As of apparently the patient was having bowel movements and flatus. The patient had crampy abdominal pain and nausea last night. Nasogastric tube is in place. Past Medical History Past Medical History: Atrial Fibrillation, Heart Failure, COPD, GERD/Reflux, Osteoarthritis (OA) Additional Past Medical History / Comment(s): CHF, cardiomyopathy, chronic back and bilateral lower extremity pain and weakness, arthritis multiple joints, constipation d/t opiods, diverticulitis with bowel resection/colostomy then colostomy reversal, colon polyps, sepsis after colostomy reversal.ddd History of Any Multi-Drug Resistant Organisms: None Reported Past Surgical History: AICD, Bowel Resection, Heart Catheterization Additional Past Surgical History / Comment(s): BiV ICD but pt states it was not firing properly so wires were disconnected, bowel resection d/t diverticular disease per pt and had colostomy/reversal of colostomy, colonoscopy/polypectomy- benign, TURP, Past Anesthesia/Blood Transfusion Reactions: No Reported Reaction Type of Cardiac Device: AICD Device Placement Date:: 2007 Smoking Status: Current every day smoker - Past Family History Mother Family Medical History: Cancer Additional Family Medical History / Comment(s): Mother had breast cancer. She lived to be 94 yrs old. Father Additional Family Medical History / Comment(s): diverticulitis Medications and Allergies Home Medications Medication Instructions Recorded Confirmed Type Lisinopril [Prinivil] 5 mg PO BID 03/08/14 11/14/17 History Baclofen [Lioresal] 10 mg PO HS 05/29/16 11/14/17 History Digoxin 250 mcg PO DAILY 06/28/16 11/14/17 History Hydrochlorothiazide [Hydrodiuril] 25 mg PO BID 06/26/17 11/14/17 History Lactulose 20 gm PO DAILY PRN 06/26/17 11/14/17 History Morphine Sulfate [Ms Contin] 30 mg PO Q8H 06/26/17 11/14/17 History Escitalopram [Lexapro] 5 mg PO DAILY #30 tab 06/28/17 11/14/17 Rx Polyethylene Glycol 3350 [Miralax] 17 gm PO HS #30 powd.pack 06/28/17 11/14/17 Rx Carvedilol [Coreg] 3.125 mg PO DAILY 11/14/17 11/14/17 History Allergies Allergy/AdvReac Type Severity Reaction Status Date / Time No Known Allergies Allergy Verified 11/14/17 20:34 Surgical - Exam Vital Signs Temp Pulse Resp BP Pulse Ox 97.7 F 107 H 18 103/70 100 11/14/17 16:44 11/14/17 16:44 11/14/17 16:44 11/14/17 16:44 11/14/17 16:44 - General no distress - Eyes PERRL - ENT normal pinna - Neck no masses - Respiratory normal expansion - Cardiovascular Rhythm: regular - Abdomen Minimal tenderness. There is no rebound or guarding. Abdomen: soft Results - Labs 11/23/17 07:05 11/23/17 07:05 Abnormal Lab Results - Last 24 Hours (Table) 11/23/17 11/23/17 Range/Units 07:05 07:05 WBC 13.1 H (3.8-10.6) k/uL Neutrophils # 11.7 H (1.3-7.7) k/uL Lymphocytes # 0.7 L (1.0-4.8) k/uL Sodium 131 L (137-145) mmol/L Chloride 93 L (98-107) mmol/L BUN 52 H (9-20) mg/dL Creatinine 1.37 H (0.66-1.25) mg/dL Calcium 7.6 L (8.4-10.2) mg/dL ALT 20 L (21-72) U/L Total Protein 4.9 L (6.3-8.2) g/dL Albumin 2.8 L (3.5-5.0) g/dL Microbiology - Last 24 Hours (Table) 11/18/17 12:20 Blood Culture - Preliminary Blood No Growth after 96 hours Diabetes panel 11/23/17 Range/Units 07:05 Sodium 131 L (137-145) mmol/L Potassium 3.7 (3.5-5.1) mmol/L Chloride 93 L (98-107) mmol/L Carbon Dioxide 29 (22-30) mmol/L BUN 52 H (9-20) mg/dL Creatinine 1.37 H (0.66-1.25) mg/dL Glucose 90 (74-99) mg/dL Calcium 7.6 L (8.4-10.2) mg/dL AST 20 (17-59) U/L ALT 20 L (21-72) U/L Alkaline Phosphatase 71 (38-126) U/L Total Protein 4.9 L (6.3-8.2) g/dL Albumin 2.8 L (3.5-5.0) g/dL Calcium panel 11/23/17 Range/Units 07:05 Calcium 7.6 L (8.4-10.2) mg/dL Albumin 2.8 L (3.5-5.0) g/dL Pituitary panel 11/23/17 Range/Units 07:05 Sodium 131 L (137-145) mmol/L Potassium 3.7 (3.5-5.1) mmol/L Chloride 93 L (98-107) mmol/L Carbon Dioxide 29 (22-30) mmol/L BUN 52 H (9-20) mg/dL Creatinine 1.37 H (0.66-1.25) mg/dL Glucose 90 (74-99) mg/dL Calcium 7.6 L (8.4-10.2) mg/dL Adrenal panel 11/23/17 Range/Units 07:05 Sodium 131 L (137-145) mmol/L Potassium 3.7 (3.5-5.1) mmol/L Chloride 93 L (98-107) mmol/L Carbon Dioxide 29 (22-30) mmol/L BUN 52 H (9-20) mg/dL Creatinine 1.37 H (0.66-1.25) mg/dL Glucose 90 (74-99) mg/dL Calcium 7.6 L (8.4-10.2) mg/dL Total Bilirubin 0.7 (0.2-1.3) mg/dL AST 20 (17-59) U/L ALT 20 L (21-72) U/L Alkaline Phosphatase 71 (38-126) U/L Total Protein 4.9 L (6.3-8.2) g/dL Albumin 2.8 L (3.5-5.0) g/dL - Imaging CT scan - abdomen: report reviewed (Computed tomography scan performed on 2017 shows evidence of small bowel obstruction with dilated small bowel.) Assessment and Plan Assessment: Total obstruction with previous history of metastatic colon cancer. The patient will have nasogastric tube placed. He'll be decompressed. If he does not open up he may require exploratory laparotomy.
--- NOTE | 2017-11-23 11:44 | P.PN ---
Subjective Progress Note Date: 11/23/17 This is a 72-year-old male with a known history of chronic back pain in which she takes oral morphine. He also has a history of nonischemic cardiomyopathy and his AICD was turned off, hypertension, colon cancer status post bowel resection with colostomy reversal and history of opiate-induced constipation. Patient presents to the emergency room with complaints of abdominal pain all over the abdomen. Initially in the ER report they reported vomiting and diarrhea. Patient reports that he's been feeling nauseous and constipated and has had no stools for about one week. Patient has had poor appetite. Patient is a poor historian. Computed tomography scan of the abdomen showing colonic gaseous distention from the cecum to the sigmoid. No bowel obstruction noted. Surgical consult placed. IV fluids have been ordered. Unfortunately patient has no IV access. And is a difficult IV start. Midline has been ordered. White count 13.1, BUN 48, creatinine 1.10. LFTs and amylase and lipase are normal. Patient denies any chest pain or shortness of breath. He admits to feeling hot and cold at times. No fever reported. He admits to passing gas. Denies any difficulty urinating. 11/16/2017 patient is alert and oriented 3 he had multiple bowel movements after he received Fleet enemas, abdominal pain has subsided there is no fever or chills no headache or dizziness no nausea or vomiting he is tolerating liquid diet well, he is asking for more food, white blood count has gone up from 14,000-17,000 today. Consultation for critical care has been initiated for triple-lumen placement patient was seen by Dr. Payne however patient refused to have any line placed. On 11/17/2017 patient is alert and oriented complaining of some abdominal discomfort otherwise denies any complaints no bowel movement in the last 24 hours, white blood count is improved from 17.0 down to 14.7, however kidney function has worsened was elevated BUN at 56 and elevated creatinine at 1.53 On 11/18/2017 patient is alert and oriented sitting in bed comfortably. Per nursing staff patient did have a bowel movement last night. Patient does state his abdominal discomfort has improved slightly. WBC this a.m. trending back up at 17.1. Awaiting infectious disease consultation. Patient remains on oral Levaquin and Flagyl. Blood cultures and urine cultures have been ordered. Per surgical services no intervention is needed, diet as tolerated and milk of magnesia given for constipation. Bun 51, creatinine 1.32. Per nursing staff patient does not have IV access at this time. Patient denies chest pain or shortness of breath. patient denies diarrhea nausea or vomiting. Denies burning with urination and frequency. On 11/19/2017 patient is alert and sitting in bed comfortably received a midline this morning. Antibiotics were switched per Dr. Raymundo to Unasyn that he will now receive through his midline. Patient also received normal saline at 100. Lab results Currently pending. CT of the abdomen and pelvis with oral contrast was ordered per Dr. Montero. Last Bowel movement was 2 days ago. Per nursing Patient had refused stool softners but will continue to encourage patient to take it. Urine and blood cultures pending. Patient denies chest pain or shortness of breath at this time. On 11/20/2017. Patient currently resting in bed comfortably. Per nursing staff patient midline that was placed yesterday has infiltrated and patient has no IV access. CT completed yesterday per Dr. Raymundo showing severely dilated loop of small bowel right-sided the abdomen measuring 5.3 cm in caliber is stable suggesting small bowel anastomosis. Patient was made nothing by mouth and surgical services have been reconsulted. White blood cell also increasing to 20.2. Infectious disease ordered Unasyn but with IV access lost he has been unable to get medication. Dr. Surjit bean critical care has been consulted for possible triple-lumen line placement critical care management. Patient also has a history of paroxysmal atrial fibrillation. Heart rate irregular upon auscultation. EKG ordered and cardiology consult On 11/21/2017 patient is currently in bed agitated about everyone asking him if he wants to get a PICC line. Patient lost midline and IV access yesterday. White blood cell continuing to go up at 23.4. Dr. Raymundo recommending line placement to continue with Unasyn antibiotic infusion. Dr. Surjit bean critical care was consulted yesterday for possible triple-lumen line placement but patient refused. Discussed in depth with patient the risk of not getting IV antibiotics. Patient became agitated and stated he does not "want any line that they are not able to get one on him." Per nursing staff will reach out to and family about decisions. Primary care office called to address any DPO paperwork but none are reported on file. Patient refused any surgical intervention. Cardiology following for history of A. fib and ICD. Per cardiology ICD had been turned off previously. 11/22/2017 patient is now asking for IV to be placed. He is agreeable for further treatment at this point. Pulmonary service has been consulted for triple-lumen placement. Discussed with nursing staff to have consent signed and Belle before critical care even is up to the floor to discuss triple-lumen placement. Patient still needs IV fluids. Creatinine 1.10 however sodium is continued to decrease at 128. White count improved from 23.4-16.1. He is still requiring antibiotics. Doppler was negative for DVT of the left arm. CEA elevated at 6.7. Patient is having small bowel movements and is passing gas. No nausea or vomiting. Denies any chest pain or shortness of breath. Denies any difficulty urinating. He is still complaining of abdominal pain. On 11/23/2017 patient had Femoral triple-lumen catheter placed by Dr. Eddy yesterday. Patient is now receiving IV fluid and IV antibiotic Unasyn per infectious disease recommendation. White blood cell improving at 13.1. Sodium increasing to 131. Creatinine 1.37. Per nursing staff patient had episode of emesis last night appearing to be fecal material. Surgical services Dr. Cortez was informed and order for NG tube was placed. Per nursing staff patient had greater than 2000 mL output from NG tube. Per Dr. Cortez and has total obstruction with previous history of metastatic colon cancer. He'll be decompressed at this time however he does not open up he may require exploratory lap. Objective - Vital Signs Vital signs: Vital Signs Temp 98.2 F 11/23/17 05:52 Pulse 101 H 11/23/17 05:52 Resp 16 11/23/17 05:52 BP 114/54 11/23/17 05:52 Pulse Ox 94 L 11/23/17 05:52 Intake & Output 11/22/17 11/23/17 11/23/17 18:59 06:59 18:59 Intake Total 600 1000 Output Total 206 3000 Balance 394 -2000 Weight 57.2 kg 59 kg Intake: Intake, IV Titration 100 1000 Amount Ampicillin-Sulbactam 3 gm 100 100 In Sodium Chloride 0.9% 100 ml @ 100 mls/hr IVPB Q6HR [facility] Rx#:[id number] Sodium Chloride 0.9% 1, 900 000 ml @ 100 mls/hr IV . Q10H [facility] Rx#:[id number] Oral 500 Output: Gastric Drainage 2400 Urine 200 Stool 6 Emesis 600 Other: Voiding Method Diaper Toilet Incontinent Diaper # Voids 2 1 # Bowel Movements 1 - Exam Head normocephalic Neck supple Lungs clear to auscultation bilaterally no wheezing or crackles Heart regular rate and rhythm S1-S2, no rub or gallop Abdomen is soft nontender nondistended positive bowel sounds no hepatosplenomegaly. NG tube in place Extremities no edema Neuro alert and orientated to 3 - Labs CBC & Chem 7: 11/23/17 07:05 11/23/17 07:05 Labs: Abnormal Lab Results - Last 24 Hours (Table) 11/23/17 11/23/17 Range/Units 07:05 07:05 WBC 13.1 H (3.8-10.6) k/uL Neutrophils # 11.7 H (1.3-7.7) k/uL Lymphocytes # 0.7 L (1.0-4.8) k/uL Sodium 131 L (137-145) mmol/L Chloride 93 L (98-107) mmol/L BUN 52 H (9-20) mg/dL Creatinine 1.37 H (0.66-1.25) mg/dL Calcium 7.6 L (8.4-10.2) mg/dL ALT 20 L (21-72) U/L Total Protein 4.9 L (6.3-8.2) g/dL Albumin 2.8 L (3.5-5.0) g/dL Microbiology - Last 24 Hours (Table) 11/18/17 12:20 Blood Culture - Preliminary Blood No Growth after 96 hours Assessment and Plan Assessment: 1. Abdominal pain with a known history of opioid-induced constipation: Evidence of small bowel obstruction on computed tomography scan. Followed by surgical service. No surgical intervention at this time. Per nursing staff patient had episode of emesis appearing to be fecal material last night. Dr. Cortez called and orderes recieved for NG tube placement. Output of greater then 2000ml per Nursing staff. Per Dr. Cortez patient has total obstruction with previous history of metastatic colon cancer. He'll be decompressed at this time however if he does not open up he may require exploratory lap. 2. Leukocytosis with abdominal source: Seen by infectious disease they had recommended IV antibiotics. Patient does not have IV access and had refused IV. Now agreeable to IV access. At this time he is only on oral Levaquin and Flagyl. Patient agreed to triple-lumen placement per Dr. Eddy yesterday. Receiving Unasyn IV antibiotic per ID recommendation. 3. acute renal failure due to prerenal azotemia creatinine: Patient had refused IV access during this admission. Creatinine is showing improvement with oral hydration. Creatinine has decreased from 1.23-1.10. Patient still would benefit from IV fluids. Creatinine 1.37. Patient now has triple-lumen receiving normal saline at 100ml/hr. 4. Essential hypertension: patient on Coreg. Patient's hydrochlorothiazide and lisinopril DC'd due to kidney function 5. Chronic back pain continue oral morphine 6. History of Nonischemic cardiomyopathy patient has had his AICD turned off 7. History of colon cancer status post bowel resection with colostomy reversal 8. Depression continue Lexapro 9. One episode of paroxysmal atrial fibrillation in the past. Not on any anticoagulation. Patient takes digoxin and coreg. Cardiology has been consulted for possible irregular rhythm. Cardiology consulted. Per cardiology ICD had been turned off previously and patient wanted to go hospice. EKG showing sinus tachycardia with a left bundle branch block per cardiology. Per cardiology if patient does need surgery, we may proceed with surgery. 10. Hyponatremia secondary to dehydration: Sodium continues to worsen at 128. Patient now agreeable to IV access. Receiving fluid normal saline at 100m,l/ hr sodium improving at 131. Critical care has been reconsulted for triple-lumen placement for IV hydration and IV antibiotics DVT prophylaxis heparin. GI prophylaxis Protonix I performed an examination of the patient and discussed their management with the Nurse Practitioner. I have reviewed the Nurse Practitioner's notes and agree with the documented findings and plan of care
[2017-11-23] MEDS: metroNIDAZOLE-NS PMX 500 MG in SALINE 1 100ML.BAG IVPB SCH (15:35)
[2017-11-23 20:52] VITALS: RESP 16
[2017-11-23] MEDS: BACLOFEN 10 MG TAB PO SCH (21:57)
[2017-11-23] MEDS: POLYETHYLENE GLYCOL 3350 17 GM POWD.PACK PO SCH (21:58)
[2017-11-24] MEDS: AMPICILLIN-SULBACTAM 3 GM in SODIUM CHLORIDE 0.9% 100 ML IVPB SCH (00:51)
[2017-11-24] MEDS: HYDROmorphone 1 MG/ML 1 ML SYRINGE IVP PRN ×2 (01:10→04:32)
[2017-11-24] MEDS: metroNIDAZOLE-NS PMX 500 MG in SALINE 1 100ML.BAG IVPB SCH (01:53)
[2017-11-24] MEDS: MORPHINE SULFATE ER 30 MG TABLET PO SCH (05:12)
[2017-11-24 05:14] VITALS: BP 89/51; PULSE 93; TEMP 97.4
--- NOTE | 2017-11-24 06:46 | PN ---
PROGRESS NOTE DATE OF SERVICE: 11/23/2017. REASON FOR FOLLOWUP: Leukocytosis, small-bowel obstruction. INTERVAL HISTORY: The patient has been evaluated by Dr. Cortez. The patient did get for decompression of his small bowel. The patient did complain of feeling thirsty and wants to drink. No chest pain and no diarrhea. EXAMINATION: His blood pressure is 99/54 with a pulse of 90, temperature 99.3. He is 92% on room air. General description is an elderly male lying in bed in no distress. Respiratory system: Unlabored breathing, clear to auscultation anteriorly. Heart S1, S2. Regular rate and rhythm. Abdomen soft, no tenderness. LABS: Hemoglobin 13.8, white count 13.1 with a BUN of 52, creatinine 1.37. DIAGNOSTIC IMPRESSION AND PLAN: Patient with leukocytosis source abdominal and the patient did have small bowel obstruction with possible concern for the anastomosis obstruction. Surgery has evaluated the patient and has been ordered. He will continue with the Unasyn for now. White count has shown downward trend. Continue supportive care. MMODL / IJN: [id number] /
[2017-11-24] MEDS ORDERED: HYDROmorphone 1 MG/ML 1 ML SYRINGE IVP PRN (07:23)
[2017-11-24 07:58] LABS: Basophils % (A) 0 %; Eosinophils % (A) 0 %; HCT 38.3 % (39.0-53.0); HGB 12.5 gm/dL (13.0-17.5); Lymphocytes # (A) 0.5 k/uL (1.0-4.8); Lymphocytes % (A) 3 %; MCHC 32.6 g/dL (31.0-37.0); MCV 92.1 fL (80.0-100.0); Mean Platelet Volume 8.4; Monocytes # (A) 0.6 k/uL (0-1.0); Monocytes % (A) 4 %; Neutrophils # (A) 12.4 k/uL (1.3-7.7); Neutrophils % (A) 92 %; Platelet Count 219 k/uL (150-450); RBC 4.15 m/uL (4.30-5.90); RDW 14.7 % (11.5-15.5); WBC 13.5 k/uL (3.8-10.6)
[2017-11-24 08:19] LABS: Albumin 2.6 g/dL (3.5-5.0); Calcium 7.4 mg/dL (8.4-10.2); Potassium 3.5 mmol/L (3.5-5.1); Total Bilirubin 0.6 mg/dL (0.2-1.3); Total Protein 4.7 g/dL (6.3-8.2)
== END 2017-11-24 07:45 | disposition hospice, inpatient (51) | DRG 388 ==
LOC: EC 16:07 → 5MS5E 20:50 → OBSVTOIN 11-19 07:21
PROVIDERS: ADMIT Internal Medicine; ATTEND Internal Medicine
PROC: 06HM33Z Insertion of Infusion Device into Right Femoral Vein, Percutaneous Approach (ICD-10-PCS; principal; 2017-11-22)
PROC: 0D9670Z Drainage of Stomach with Drainage Device, Via Natural or Artificial Opening (ICD-10-PCS; 2017-11-22)
DX: K56.609 Unspecified intestinal obstruction, unspecified as to partial versus complete obstruction (principal); N17.0 Acute kidney failure with tubular necrosis; I42.9 Cardiomyopathy, unspecified; E87.1 Hypo-osmolality and hyponatremia; R64 Cachexia; Z68.1 Body mass index [BMI] 19.9 or less, adult; I11.0 Hypertensive heart disease with heart failure; I50.9 Heart failure, unspecified; I48.0 Paroxysmal atrial fibrillation; E86.0 Dehydration; J44.9 Chronic obstructive pulmonary disease, unspecified; N28.1 Cyst of kidney, acquired; I44.7 Left bundle-branch block, unspecified; D72.829 Elevated white blood cell count, unspecified; G89.29 Other chronic pain; T40.2X5A Adverse effect of other opioids, initial encounter; M54.9 Dorsalgia, unspecified; M79.604 Pain in right leg; Z53.29 Procedure and treatment not carried out because of patient's decision for other reasons; M79.605 Pain in left leg; Z51.5 Encounter for palliative care; F32.9 Major depressive disorder, single episode, unspecified; K21.9 Gastro-esophageal reflux disease without esophagitis; Z79.891 Long term (current) use of opiate analgesic; Z79.899 Other long term (current) drug therapy; Z85.038 Personal history of other malignant neoplasm of large intestine; Z90.49 Acquired absence of other specified parts of digestive tract; Z86.010 Personal history of colon polyps; Z87.891 Personal history of nicotine dependence; Z80.3 Family history of malignant neoplasm of breast; Z83.79 Family history of other diseases of the digestive system
CPT/HCPCS: 36415; 36569; 74176; 74177; 76937; 80048; 80053; 81001; 82150; 82378; 83690; 85025; 85610; 87040; 87086; 93005; 96361; 96374; 96375; 99285

== ENCOUNTER 2017-11-24 07:41 | Inpatient (IN) | payer MEDICAID ==
[2017-11-24] MEDS ORDERED: ACETAMINOPHEN SUPPOSITORY 650 MG SUPP RECTAL PRN (08:45)
[2017-11-24] MEDS ORDERED: ONDANSETRON 4 MG/2 ML VIAL IVP PRN (08:50)
[2017-11-24] MEDS ORDERED: BISACODYL 10 MG SUPP RECTAL PRN (08:55)
[2017-11-24] MEDS ORDERED: BISACODYL 10 MG SUPP RECTAL SCH (09:00)
[2017-11-24] MEDS ORDERED: SCOPOLAMINE 1.5MG/72HR PATCH TRANSDERM PRN (09:00)
--- NOTE | 2017-11-24 10:21 | P.HPIM ---
History of Present Illness H&P Date: 11/24/17 Chief Complaint: abdominal pain Patient is a 72-year-old male who was admitted to [facility] several days ago with abdominal pain computed tomography scan revealed evidence of bowel obstruction. Patient has a known previous history of colon cancer, no new evidence of recurrence, during his hospitalization patient refused to have surgery, his condition worsened and patient and his family requested hospice services. Past Medical History Past Medical History: Atrial Fibrillation, Heart Failure, COPD, GERD/Reflux, Osteoarthritis (OA) Additional Past Medical History / Comment(s): CHF, cardiomyopathy, chronic back and bilateral lower extremity pain and weakness, arthritis multiple joints, constipation d/t opiods, diverticulitis with bowel resection/colostomy then colostomy reversal, colon polyps, sepsis after colostomy reversal.ddd History of Any Multi-Drug Resistant Organisms: None Reported Past Surgical History: AICD, Bowel Resection, Heart Catheterization Additional Past Surgical History / Comment(s): BiV ICD but pt states it was not firing properly so wires were disconnected, bowel resection d/t diverticular disease per pt and had colostomy/reversal of colostomy, colonoscopy/polypectomy- benign, TURP, Past Anesthesia/Blood Transfusion Reactions: No Reported Reaction Type of Cardiac Device: AICD Device Placement Date:: 2007 Smoking Status: Current every day smoker - Past Family History Mother Family Medical History: Cancer Additional Family Medical History / Comment(s): Mother had breast cancer. She lived to be 94 yrs old. Father Additional Family Medical History / Comment(s): diverticulitis Medications and Allergies Home Medications Medication Instructions Recorded Confirmed Type Lisinopril [Prinivil] 5 mg PO BID 03/08/14 11/14/17 History Baclofen [Lioresal] 10 mg PO HS 05/29/16 11/14/17 History Digoxin 250 mcg PO DAILY 06/28/16 11/14/17 History Hydrochlorothiazide [Hydrodiuril] 25 mg PO BID 06/26/17 11/14/17 History Lactulose 20 gm PO DAILY PRN 06/26/17 11/14/17 History Morphine Sulfate [Ms Contin] 30 mg PO Q8H 06/26/17 11/14/17 History Escitalopram [Lexapro] 5 mg PO DAILY #30 tab 06/28/17 11/14/17 Rx Polyethylene Glycol 3350 [Miralax] 17 gm PO HS #30 powd.pack 06/28/17 11/14/17 Rx Carvedilol [Coreg] 3.125 mg PO DAILY 11/14/17 11/14/17 History Allergies Allergy/AdvReac Type Severity Reaction Status Date / Time No Known Allergies Allergy Verified 11/14/17 20:34 Physical Exam Vitals: Intake and Output 11/23/17 11/24/17 11/24/17 22:59 06:59 14:59 Other: Weight 59 kg Patient at this time is sleeping, arousable only was repeated stimuli but goes back to sleep. HEENT without any acute abnormality Neck is supple no JVD Chest exam reveals scattered crackles bilaterally no wheezing Cardiac exam reveals regular heart sounds no gallops or murmurs Abdomen is soft no palpable masses and overactive bowel sounds Extremity exam reveals no edema Assessment and Plan Plan: #1 Bowel obstruction, patient seen by Dr. Cortez and refused surgery, he has a previous history of colon cancer, but no new evidence of recurrence, patient and his family requested hospice services, he was started on hospice last night. Currently patient is maintained on IV Tylenol, IV dye loaded, IV Ativan, IV Zofran, and scopolamine patch There is no evidence of pain or discomfort at this time, will continue with current management, prognosis is terminal.
[2017-11-24] MEDS: HYDROmorphone 1 MG/ML 1 ML SYRINGE IVP PRN ×4 (10:55→20:20)
[2017-11-24] MEDS: LORazepam 2 MG/ML INJ IV PRN (22:32)
[2017-11-25] MEDS: HYDROmorphone 1 MG/ML 1 ML SYRINGE IVP PRN ×5 (03:49→21:31)
[2017-11-25] MEDS: LORazepam 2 MG/ML INJ IV PRN ×4 (04:05→21:31)
[2017-11-25 07:43] VITALS: BP 151/75; RESP 16; TEMP 97.9
[2017-11-25 08:52] VITALS: BMI 18.6
--- NOTE | 2017-11-25 10:13 | P.PN ---
Subjective Progress Note Date: 11/25/17 Patient is a 72-year-old male who was admitted to [facility] several days ago with abdominal pain computed tomography scan revealed evidence of bowel obstruction. Patient has a known previous history of colon cancer, no new evidence of recurrence, during his hospitalization patient refused to have surgery, his condition worsened and patient and his family requested hospice services. On 11/25/2017. Patient currently on hospice. Patient resting comfortably in bed at this time. Per hospice nurse patient receiving IV Dilaudid 2 mg every 2 hours. Objective - Vital Signs Vital signs: Vital Signs Temp 97.9 F 11/25/17 07:00 Pulse 57 L 11/25/17 07:00 Resp 16 11/25/17 07:00 BP 151/75 11/25/17 07:00 Pulse Ox 93 L 11/25/17 07:00 Intake & Output 11/24/17 11/25/17 11/25/17 18:59 06:59 18:59 Intake Total 0 Output Total 100 150 Balance -100 -150 Weight 59 kg 59 kg Intake: Oral 0 Output: Gastric Drainage 150 Drainage 100 Left 100 Other: Voiding Method Diaper Diaper Incontinent Incontinent # Voids 3 1 - Exam Head normocephalic Neck supple Lungs scattered crackles bilaterally no wheezing Heart regular rate and rhythm S1-S2, no rub or gallop Abdomen is soft nontender nondistended positive bowel sounds no hepatosplenomegaly Extremities no edema Neuro alert and orientated to 3 Assessment and Plan Assessment: #1 Bowel obstruction, patient seen by Dr. Cortez and refused surgery, he has a previous history of colon cancer, but no new evidence of recurrence, patient and his family requested hospice services, he was started on hospice last night. Currently patient is maintained on IV Tylenol, IV dye loaded, IV Ativan, IV Zofran, and scopolamine patch There is no evidence of pain or discomfort at this time, will continue with current management, prognosis is terminal. Per hospice nurse patient receiving 2 mg every 2 hours by the Thomid. Adequate Pain control at this point. Patient may require more pain control in the future due to patient's history of using chronic pain medication.
[2017-11-25 11:09] VITALS: PULSE 65
[2017-11-26] MEDS: LORazepam 2 MG/ML INJ IV PRN ×3 (00:21→21:01)
[2017-11-26] MEDS: HYDROmorphone 1 MG/ML 1 ML SYRINGE IVP PRN ×4 (00:21→11:55)
--- NOTE | 2017-11-26 14:38 | P.PN ---
Subjective Progress Note Date: 11/26/17 Patient is a 72-year-old male who was admitted to [facility] several days ago with abdominal pain computed tomography scan revealed evidence of bowel obstruction. Patient has a known previous history of colon cancer, no new evidence of recurrence, during his hospitalization patient refused to have surgery, his condition worsened and patient and his family requested hospice services. On 11/25/2017. Patient currently on hospice. Patient resting comfortably in bed at this time. Per hospice nurse patient receiving IV Dilaudid 2 mg every 2 hours. On 11/26/2017 patient is alert and oriented resting comfortably, there was one incident last night when he was found sitting on the floor, he denies falls, denies having any injury or any back or limp pain, he was held back to the bed, case was discussed this morning with hospice nurse, plan is to take patient off IV pain medications to help discharging him home in the next 1-2 days on oral medications. Objective - Vital Signs Vital signs: Vital Signs Temp 97.9 F 11/25/17 07:00 Pulse 65 11/25/17 16:00 Resp 16 11/25/17 16:00 BP 151/75 11/25/17 07:00 Pulse Ox 93 L 11/25/17 07:00 Intake & Output 11/25/17 11/26/17 11/26/17 18:59 06:59 18:59 Intake Total 0 580 Output Total 200 Balance 0 580 -200 Weight 59 kg 59 kg Intake: Oral 0 580 Output: Urine 200 Other: Voiding Method Diaper Diaper Incontinent Incontinent # Voids 2 3 1 # Bowel Movements 0 - Exam Head normocephalic Neck supple Lungs scattered crackles bilaterally no wheezing Heart regular rate and rhythm S1-S2, no rub or gallop Abdomen is soft nontender nondistended positive bowel sounds no hepatosplenomegaly Extremities no edema Neuro alert and orientated to 3 Assessment and Plan Plan: #1 Bowel obstruction, patient seen by Dr. Cortez and refused surgery, he has a previous history of colon cancer, but no new evidence of recurrence, patient and his family requested hospice services, he was started on hospice last night. Currently patient is maintained on IV Tylenol, IV dye loaded, IV Ativan, IV Zofran, and scopolamine patch There is no evidence of pain or discomfort at this time, will continue with current management, prognosis is terminal. At this time will start patient on fentanyl patch 50 g and oral Roxanol 5 mg every 3 hours when necessary switched to oral Ativan Will reassess control tomorrow when patient is comfortable he will be discharged to home with home hospice.
[2017-11-26] MEDS: MORPHINE ORAL SOLN 10 MG/5 ML CUP PO PRN ×3 (17:13→23:09)
[2017-11-27] MEDS: LORazepam 2 MG/ML INJ IV PRN ×2 (00:53→03:44)
[2017-11-27] MEDS: MORPHINE ORAL SOLN 10 MG/5 ML CUP PO PRN ×2 (09:13→16:23)
[2017-11-27] MEDS: LORazepam 1 MG TAB PO PRN ×2 (09:36→17:25)
--- NOTE | 2017-11-27 14:36 | P.PN ---
Subjective Progress Note Date: 11/27/17 Patient is a 72-year-old male who was admitted to [facility] several days ago with abdominal pain computed tomography scan revealed evidence of bowel obstruction. Patient has a known previous history of colon cancer, no new evidence of recurrence, during his hospitalization patient refused to have surgery, his condition worsened and patient and his family requested hospice services. On 11/25/2017. Patient currently on hospice. Patient resting comfortably in bed at this time. Per hospice nurse patient receiving IV Dilaudid 2 mg every 2 hours. On 11/26/2017 patient is alert and oriented resting comfortably, there was one incident last night when he was found sitting on the floor, he denies falls, denies having any injury or any back or limp pain, he was held back to the bed, case was discussed this morning with hospice nurse, plan is to take patient off IV pain medications to help discharging him home in the next 1-2 days on oral medications. On 11/27/2017 patient is currently resting in bed. Per nursing staff and patient currently medication is not controlling pain. Planning possible discharge home on hospice. We'll hold off and adjust pain medications at this time Objective - Vital Signs Vital signs: Vital Signs Temp 97.9 F 11/25/17 07:00 Pulse 65 11/25/17 16:00 Resp 16 11/25/17 16:00 BP 151/75 11/25/17 07:00 Pulse Ox 93 L 11/25/17 07:00 Intake & Output 11/26/17 11/27/17 11/27/17 18:59 06:59 18:59 Intake Total 0 Output Total 200 Balance -200 0 Weight 59 kg Intake: Oral 0 Output: Urine 200 Other: Voiding Method Diaper Diaper Diaper Incontinent Incontinent Incontinent # Voids 1 # Bowel Movements 0 - Exam Head normocephalic Neck supple Lungs scattered crackles bilaterally no wheezing Heart regular rate and rhythm S1-S2, no rub or gallop Abdomen is soft nontender nondistended positive bowel sounds no hepatosplenomegaly Extremities no edema Neuro alert and orientated to 3 Assessment and Plan Assessment: #1 Bowel obstruction, patient seen by Dr. Cortez and refused surgery, he has a previous history of colon cancer, but no new evidence of recurrence, patient and his family requested hospice services, he was started on hospice last night. Currently patient is maintained on IV Tylenol, IV dye loaded, IV Ativan, IV Zofran, and scopolamine patch There is no evidence of pain or discomfort at this time, will continue with current management, prognosis is terminal. At this time will start patient on fentanyl patch 50 g and oral Roxanol 5 mg every 3 hours when necessary switched to oral Ativan Will reassess control tomorrow when patient is comfortable he will be discharged to home with home hospice. Pain not adequately controlled at this time. Will increase Roxanol to 10 mg every 2 hours and increase Fentenyl patch 75 mcg. Will assess control pain tomorrow with possible discharge home with hospice. I performed an examination of the patient and discussed their management with the Nurse Practitioner. I have reviewed the Nurse Practitioner's notes and agree with the documented findings and plan of care
[2017-11-27] MEDS ORDERED: MORPHINE ORAL SOLN 10 MG/5 ML CUP ONE (23:30)
[2017-11-28] MEDS ORDERED: MORPHINE ORAL SOLN 10 MG/5 ML CUP ONE (03:00)
[2017-11-28] MEDS: MORPHINE ORAL SOLN 10 MG/5 ML CUP PO PRN ×3 (05:30→12:08)
--- NOTE | 2017-11-28 11:44 | P.DS ---
Providers Date of admission: 11/24/17 08:03 Expected date of discharge: 11/28/17 Attending physician: Koko Pat Primary care physician: Koko Pta [place] Hospital Course: Discharge Diagnosis #1 Bowel obstruction, patient seen by Dr. Cortez and refused surgery, he has a previous history of colon cancer, but no new evidence of recurrence, patient and his family requested hospice services, he was started on hospice last night. Currently patient is maintained on IV Tylenol, IV dye loaded, IV Ativan, IV Zofran, and scopolamine patch There is no evidence of pain or discomfort at this time, will continue with current management, prognosis is terminal. At this time will start patient on fentanyl patch 50 g and oral Roxanol 5 mg every 3 hours when necessary switched to oral Ativan Will reassess control tomorrow when patient is comfortable he will be discharged to home with home hospice. Pain not adequately controlled at this time. Will increase Roxanol to 10 mg every 2 hours and increase Fentenyl patch 75 mcg. Will assess control pain tomorrow with possible discharge home with hospice. Patient will be discharged home on hospice today. Pain adequately controlled today. Hospital course Patient is a 72-year-old male who was admitted to [facility] several days ago with abdominal pain computed tomography scan revealed evidence of bowel obstruction. Patient has a known previous history of colon cancer, no new evidence of recurrence, during his hospitalization patient refused to have surgery, his condition worsened and patient and his family requested hospice services. On 11/25/2017. Patient currently on hospice. Patient resting comfortably in bed at this time. Per hospice nurse patient receiving IV Dilaudid 2 mg every 2 hours. On 11/26/2017 patient is alert and oriented resting comfortably, there was one incident last night when he was found sitting on the floor, he denies falls, denies having any injury or any back or limp pain, he was held back to the bed, case was discussed this morning with hospice nurse, plan is to take patient off IV pain medications to help discharging him home in the next 1-2 days on oral medications. On 11/27/2017 patient is currently resting in bed. Per nursing staff and patient currently medication is not controlling pain. Planning possible discharge home on hospice. We'll hold off and adjust pain medications at this time On 11/28/2017 patient is currently resting in bed pain with adequate pain control point. Plan to be discharged today at 1:00 home with hospice I performed an examination of the patient and discussed their management with the Nurse Practitioner. I have reviewed the Nurse Practitioner's notes and agree with the documented findings and plan of care Pertinent Studies: Discharge Diagnosis #1 Bowel obstruction, patient seen by Dr. Cortez and refused surgery, he has a previous history of colon cancer, but no new evidence of recurrence, patient and his family requested hospice services, he was started on hospice last night. Currently patient is maintained on IV Tylenol, IV dye loaded, IV Ativan, IV Zofran, and scopolamine patch There is no evidence of pain or discomfort at this time, will continue with current management, prognosis is terminal. At this time will start patient on fentanyl patch 50 g and oral Roxanol 5 mg every 3 hours when necessary switched to oral Ativan Will reassess control tomorrow when patient is comfortable he will be discharged to home with home hospice. Pain not adequately controlled at this time. Will increase Roxanol to 10 mg every 2 hours and increase Fentenyl patch 75 mcg. Will assess control pain tomorrow with possible discharge home with hospice. Patient will be discharged home on hospice today. Pain adequately controlled today. Hospital course Patient is a 72-year-old male who was admitted to [facility] several days ago with abdominal pain computed tomography scan revealed evidence of bowel obstruction. Patient has a known previous history of colon cancer, no new evidence of recurrence, during his hospitalization patient refused to have surgery, his condition worsened and patient and his family requested hospice services. On 11/25/2017. Patient currently on hospice. Patient resting comfortably in bed at this time. Per hospice nurse patient receiving IV Dilaudid 2 mg every 2 hours. On 11/26/2017 patient is alert and oriented resting comfortably, there was one incident last night when he was found sitting on the floor, he denies falls, denies having any injury or any back or limp pain, he was held back to the bed, case was discussed this morning with hospice nurse, plan is to take patient off IV pain medications to help discharging him home in the next 1-2 days on oral medications. On 11/27/2017 patient is currently resting in bed. Per nursing staff and patient currently medication is not controlling pain. Planning possible discharge home on hospice. We'll hold off and adjust pain medications at this time On 11/28/2017 patient is currently resting in bed pain with adequate pain control point. Plan to be discharged today at 1:00 home with hospice Patient Condition at Discharge: Stable Plan - Discharge Summary Discharge Rx Participant: No New Discharge Prescriptions: No Action Lisinopril [Prinivil] 5 mg PO BID Baclofen [Lioresal] 10 mg PO HS Digoxin 250 mcg PO DAILY Morphine Sulfate [Ms Contin] 30 mg PO Q8H Hydrochlorothiazide [Hydrodiuril] 25 mg PO BID Lactulose 20 gm PO DAILY PRN PRN Reason: Constipation Escitalopram [Lexapro] 5 mg PO DAILY #30 tab Polyethylene Glycol 3350 [Miralax] 17 gm PO HS #30 powd.pack Carvedilol [Coreg] 3.125 mg PO DAILY Discharge Medication List Lisinopril [Prinivil] 5 mg PO BID 03/08/14 [History] Baclofen [Lioresal] 10 mg PO HS 05/29/16 [History] Digoxin 250 mcg PO DAILY 06/28/16 [History] Hydrochlorothiazide [Hydrodiuril] 25 mg PO BID 06/26/17 [History] Lactulose 20 gm PO DAILY PRN 06/26/17 [History] Morphine Sulfate [Ms Contin] 30 mg PO Q8H 06/26/17 [History] Escitalopram [Lexapro] 5 mg PO DAILY #30 tab 06/28/17 [Rx] Polyethylene Glycol 3350 [Miralax] 17 gm PO HS #30 powd.pack 06/28/17 [Rx] Carvedilol [Coreg] 3.125 mg PO DAILY 11/14/17 [History] Discharge Disposition: HOME WITH HOSPICE
[2017-11-28] MEDS: LORazepam 1 MG TAB PO PRN (12:11)
== END 2017-11-28 13:20 | disposition hospice, home (50) | DRG 389 ==
LOC: 5MS5E 08:03 → 5ONC 16:59
PROVIDERS: ADMIT Internal Medicine; ATTEND Internal Medicine
PROC: 0D9670Z Drainage of Stomach with Drainage Device, Via Natural or Artificial Opening (ICD-10-PCS; principal; 2017-11-24)
DX: K56.609 Unspecified intestinal obstruction, unspecified as to partial versus complete obstruction (principal); I42.9 Cardiomyopathy, unspecified; I50.9 Heart failure, unspecified; I48.91 Unspecified atrial fibrillation; J44.9 Chronic obstructive pulmonary disease, unspecified; K59.03 Drug induced constipation; T40.2X5A Adverse effect of other opioids, initial encounter; K21.9 Gastro-esophageal reflux disease without esophagitis; M19.91 Primary osteoarthritis, unspecified site; G89.29 Other chronic pain; M54.9 Dorsalgia, unspecified; M79.605 Pain in left leg; R32 Unspecified urinary incontinence; M79.604 Pain in right leg; F17.200 Nicotine dependence, unspecified, uncomplicated; Z71.6 Tobacco abuse counseling; Z79.891 Long term (current) use of opiate analgesic; Z79.899 Other long term (current) drug therapy; Z53.20 Procedure and treatment not carried out because of patient's decision for unspecified reasons; Z85.038 Personal history of other malignant neoplasm of large intestine; Z90.49 Acquired absence of other specified parts of digestive tract; Z86.010 Personal history of colon polyps; Z90.79 Acquired absence of other genital organ(s); Z80.3 Family history of malignant neoplasm of breast; Z83.79 Family history of other diseases of the digestive system